=== PATIENT | male | born 1980 | race Caucasian/White ===

== ENCOUNTER → 2016-07-22 | Outpatient (CLI) | payer OTHER ==
[~2016-07-22] MED LIST: ASPI81TA28 PO; CEPH500C PO; DIHY1INJ2 IM; DLD/2 PO; DOCU100C PO; DXP/75 PO; FRRS300 PO; LPT10 PO; MEMA1TAB3 PO; METO25TA56 PO; ONDA4TAB9 PO; POLY335019 PO; PROM25TA16 PO; PRT/40 PO; SUMA1INJ5 IM; TRD10 PO; TRDI60 IM; WARF-246 PO; ZFRODT/8 PO; [UNRECOGNIZED DRUG - CODE]
--- NOTE | 2016-07-22 11:57 | DIAGNOSTIC IMAGING REPORT ---
CHEST 2 VIEWS ROUTINE CLINICAL HISTORY: J22 Acute lower respiratory infection COMPARISON STUDY: 04/21/2016 FINDINGS: There are postsurgical changes of midline sternotomy and valvular replacement. There is no focal pulmonary consolidation. There is no failure. There are no pleural effusions.[ IMPRESSION: No active disease in the chest. Electronically signed by: Vickey Yoo M.D. 07/22/2016 11:56 AM Dictated Date/Time: 07/22/2016 11:56 AM
== END | disposition home or self-care (01) ==
LOC: C.RADBC 11:47
PROVIDERS: ATTEND Internal Medicine
DX: J22 Unspecified acute lower respiratory infection (principal)

== ENCOUNTER → 2017-08-17 | Day surgery (SDC) | payer OTHER ==
--- NOTE | 2017-08-16 10:55 | PAT Medication Instructions ---
Service Date Aug 16, 2017. Current Home Medication List Dihydroergotamine Mesylate (D.h.e. 45), 1 ML INJ PRN Doxepin Hcl (Doxepin), 75-150 MG PO HS Hydromorphone HCl (Hydromorphone HCl), 2 MG PO Q4-6H PRN for Pain Ketamine Hcl (Bulk) (Ketamine Hcl), 1 SPRAY NA UD PRN for Migraine Metoprolol Succ (Toprol Xl) (Toprol-Xl ), 100 MG PO BID Multivitamin (Multivitamin), 1 TAB PO QAM Naratriptan Hcl (Amerge), 2.5 MG PO PRN Ondansetron (Ondansetron HCl), 8 MG PO Q6H PRN for Nausea Pantoprazole (Pantoprazole Sodium), 40 MG PO DAILY PRN for Acid Reflux Polyethylene Glycol 3350 (Miralax), 17 GM PO DAILY PRN for Constipation Promethazine HCl (Promethazine HCl), 25 MG PO Q6H PRN for Nausea Sumatriptan Succinate (Sumatriptan Succinate), 6 MG IM UD PRN for Migraine Medication Instructions For Your Scheduled Surgery - Hold the following medications the morning of surgery: Dihydroergotamine Mesylate (D.h.e. 45), 1 ML INJ PRN Ketamine Hcl (Bulk) (Ketamine Hcl), 1 SPRAY NA UD PRN for Migraine Multivitamin (Multivitamin), 1 TAB PO QAM Polyethylene Glycol 3350 (Miralax), 17 GM PO DAILY PRN for Constipation - Take the following medications the morning of surgery with a sip of water: Sumatriptan Succinate (Sumatriptan Succinate), 6 MG IM UD PRN for Migraine (if needed) Promethazine HCl (Promethazine HCl), 25 MG PO Q6H PRN for Nausea (if needed) Pantoprazole (Pantoprazole Sodium), 40 MG PO DAILY PRN for Acid Reflux (if needed) Ondansetron (Ondansetron HCl), 8 MG PO Q6H PRN for Nausea (if needed) Naratriptan Hcl (Amerge), 2.5 MG PO PRN (if needed) Metoprolol Succ (Toprol Xl) (Toprol-Xl ), 100 MG PO BID Hydromorphone HCl (Hydromorphone HCl), 2 MG PO Q4-6H PRN for Pain (okay to take up to 4 hours prior to surgery if needed) - Take the following medications as scheduled the night before surgery: Sumatriptan Succinate (Sumatriptan Succinate), 6 MG IM UD PRN for Migraine (if needed) Promethazine HCl (Promethazine HCl), 25 MG PO Q6H PRN for Nausea (if needed) Polyethylene Glycol 3350 (Miralax), 17 GM PO DAILY PRN for Constipation (if needed) Pantoprazole (Pantoprazole Sodium), 40 MG PO DAILY PRN for Acid Reflux (if needed) Ondansetron (Ondansetron HCl), 8 MG PO Q6H PRN for Nausea (if needed) Naratriptan Hcl (Amerge), 2.5 MG PO PRN (if needed) Metoprolol Succ (Toprol Xl) (Toprol-Xl ), 100 MG PO BID Ketamine Hcl (Bulk) (Ketamine Hcl), 1 SPRAY NA UD PRN for Migraine (if needed) Hydromorphone HCl (Hydromorphone HCl), 2 MG PO Q4-6H PRN for Pain (if needed) Doxepin Hcl (Doxepin), 75-150 MG PO HS Dihydroergotamine Mesylate (D.h.e. 45), 1 ML INJ PRN (if needed) If you have any questions please call us at [phone] or [phone] or [phone]
[2017-08-16 12:11] LABS: HEMATOCRIT 39.2 % (42-52); HEMOGLOBIN 12.3 g/dL (14.0-18.0); MEAN CELL VOLUME 80.2 fL (80-100); MEAN CORPUSCULAR HEMOGLOBIN 25.2 pg (25-34); MEAN CORPUSCULAR HGB CONC 31.4 g/dl (32-36); MEAN PLATELET VOLUME 10.5 fL (7.4-10.4); PLATELET COUNT 175 K/uL (130-400); RED CELL DISTRIBUTION WIDTH CV 17.6 % (11.5-14.5); RED CELL DISTRIBUTION WIDTH SD 52.1 fL (36.4-46.3)
[2017-08-16 12:19] LABS: BLOOD UREA NITROGEN 12 mg/dl (7-18); CALCIUM 8.9 mg/dl (8.5-10.1); CARBON DIOXIDE 27 mmol/L (21-32); CREATININE 1.08 mg/dl (0.60-1.40); GLUCOSE 98 mg/dl (70-99); SODIUM 138 mmol/L (136-145)
--- NOTE | 2017-08-16 13:09 | History and Physical: Surg Cnt ---
History & Physical Date Aug 16, 2017. Chief Complaint ruptured right eardrum History of Present Illness The patient is a 37 year old male with complaints of accidentally puncturing his right ear drum last week with Qtip, c/o persistent pain and bloody drainage and hearing loss, requested repair Past Medical/Surgical History Medical Problems: (1) Abdominal pain (2) Abscess of left upper extremity (3) Acid reflux (4) BPH (benign prostatic hyperplasia) (5) Chest pain (6) Endocarditis (7) Fever (8) Hypertension (9) Intractable migraine with status migrainosus (10) Migraine (11) Nausea vomiting and diarrhea (12) Neurofibromatosis (13) Positive blood culture (14) SIRS (systemic inflammatory response syndrome) (15) SVT (supraventricular tachycardia) Surgical Problems: (1) H/O mitral valve repair (2) H/O repair of right rotator cuff (3) History of tonsillectomy and adenoidectomy Additional History Hepatic Disease: No Endocrine Disorder: No Kidney Disease: No Hypertension: Yes Heart Disease: Yes Bleeding Tendencies: No Infectious Diseases: No Allergies Coded Allergies: Adhesives (Verified Allergy, Unknown, SKIN IRRITATION WITH BANDAIDS, ) Metoclopramide (Verified Adverse Reaction, Mild, anxiety, 08/16/17) Home Medications Scheduled Dihydroergotamine Mesylate (D.h.e. 45), 1 ML INJ PRN Doxepin Hcl (Doxepin), 75-150 MG PO HS Metoprolol Succ (Toprol Xl) (Toprol-Xl ), 100 MG PO BID Multivitamin (Multivitamin), 1 TAB PO QAM Naratriptan Hcl (Amerge), 2.5 MG PO PRN Scheduled PRN Hydromorphone HCl (Hydromorphone HCl), 2 MG PO Q4-6H PRN for Pain Ketamine Hcl (Bulk) (Ketamine Hcl), 1 SPRAY NA UD PRN for Migraine Ondansetron (Ondansetron HCl), 8 MG PO Q6H PRN for Nausea Pantoprazole (Pantoprazole Sodium), 40 MG PO DAILY PRN for Acid Reflux Polyethylene Glycol 3350 (Miralax), 17 GM PO DAILY PRN for Constipation Promethazine HCl (Promethazine HCl), 25 MG PO Q6H PRN for Nausea Sumatriptan Succinate (Sumatriptan Succinate), 6 MG IM UD PRN for Migraine Physical Examination Skin: warm/dry, no rash Eyes: normal inspection, EOMI, sclerae normal ENT: + pertinent finding (blood in right canal, > 50% perforation of right TM) Head: normocephalic Neck: supple Respiratory/Chest: lungs clear Cardiovascular: regular rate, rhythm Abdomen / GI: normal bowel sounds Back: normal inspection Extremities: normal inspection Neurologic/Psych: + pertinent finding (conductive hearing loss right ear) Diagnosis Acute traumatic perforation right ear Plan of Treatment tympanoplasty, right
[2017-08-16 14:37] VITALS: Ht 185.4 cm; Wt 118.5 kg
[~2017-08-17] VITALS: Ht 185.4 cm; Wt 118.5 kg
[~2017-08-17] MED LIST changes: -ASPI81TA28 PO; +ATROPINE SULFATE 0.1 MG/ML 5ML SYR IV PRN; +CEFAZOLIN 1000MG IV PUSH 7.5 ML IV SCH; -CEPH500C PO; +DEXAMETHASONE SOD INJ 4 MG/ML VIAL ONE; -DIHY1INJ2 IM; +DIHY1INJ4 INJ; -DOCU100C PO; +EpHEDrine SULFATE INJ 50 MG/ML AMP IV PRN; +EpINEphrine HCL INJ 1 MG/ML 1ML SYRINGE ONE; +FENTANYL CITRATE INJ 50 MCG/1 ML 2 ML VIAL IV PRN; +FENTANYL CITRATE INJ 50 MCG/1 ML 2 ML VIAL ONE; -FRRS300 PO; +GELATIN SPONGE 12-7MM ONE; +HYDROmorphone INJ 1 MG/ML SYR IV PRN; +LACTATED RINGER'S 1000ML 1,000 ML IV SCH; +LIDO 2%/EPINEPHRINE 1:100000 20 ML VIAL INFIL ONE; +LIDOCAINE HCL 2% 2 ML VIAL (20MG/ML) ONE; -LPT10 PO; -MEMA1TAB3 PO; +METO100T44 PO; -METO25TA56 PO; +MIDAZOLAM HCL 1 MG/ML 2ML VIAL ONE; +MULT-506 PO; +NARA2.5T2 PO; +NEOMYCIN/POLYMYX/HYDROCORT OT SUSP 10 ML BTL ONE; +NEOMYCIN/POLYMYXIN/BACITR/HC 15 GM TUBE ONE; +ONDANSETRON INJ 2 MG/ML 2 ML VIAL IV PRN; +ONDANSETRON INJ 2 MG/ML 2 ML VIAL ONE; +OXYCODONE/ACETAMINOPHEN 5-325 TAB PO PRN; +PANT40TA2 PO; +PATIENT'S HEIGHT AND/OR WEIGHT NEEDED SCH; +PROPOFOL IV EMULSION 10 MG/ML 20 ML VIAL IV ONE; -PRT/40 PO; +SODIUM CHLORIDE 0.9% 1000ML 1,000 ML IV SCH; -TRD10 PO; -TRDI60 IM; -WARF-246 PO; -ZFRODT/8 PO
--- NOTE | 2017-08-17 10:56 | History & Physical Bridge Note ---
H&P Re-Evaluation Bridge Note: I have examined the patient, reviewed the History & Physical and in the interval since the performance of the History & Physical I have noted the following changes of clinical significance: No changes noted
--- NOTE | 2017-08-17 12:31 | [facility] Post Operative Brief Note ---
Immediate Operative Summary Operative Date Aug 17, 2017. Pre-Operative Diagnosis Right Perforation Post-Operative Diagnosis same as pre op Procedure(s) Performed Right Tympanoplasty Surgeon Dr Gamboa Box Blank Machine Feeder Surgeon(s) none Estimated Blood Loss 5ml Findings Consistent with Post-Op Diagnosis Specimens none Drains None Anesthesia Type General Complication(s) none Disposition Accompanied Pt To Recovery: no Disposition: Recovery Room / PACU
--- NOTE | 2017-08-17 12:34 | Discharge Instructions-SurgCtr ---
Discharge Instructions Date of Service Aug 17, 2017. Visit Reason for Visit: Right Perforation Discharge Discharge Diagnosis / Problem: same Discharge Goals Goal(s): Therapeutic intervention Activity Recommendations Activity Limitations: per Instructions/Follow-up section Anesthesia . Post Anesthesia Instructions: If you have had General Anesthesia or IV Sedation: * Do not drive today. * Resume driving when surgeon permits. * Do not make important decisions or sign legal documents today. * Call surgeon for: 1. Temperature elevations greater than 101 degrees F. 2. Uncontrollable pain. 3. Excessive bleeding. 4. Persistent nausea and vomiting. 5. Medication intolerance (nausea, vomiting or rash). * For nausea and vomiting use only clear liquids such as: tea, soda, bouillon until nausea subsides, then gradually increase diet as tolerated. * If you have any concerns or questions, call your surgeon's office. If physician is unavailable and it is an emergency, call 911 or go to the nearest emergency room. . Instructions / Follow-Up Instructions / Follow-Up ACTIVITY RECOMMENDATIONS: No limitations OVER THE COUNTER MEDICATIONS: Continue any other previous medications unless otherwise indicated by your surgeon. * You may use Tylenol for mild pain as per bottle instructions. SPECIAL CARE INSTRUCTIONS: * Keep operative ear dry. * Change cotton balls 4 times per day. Leave packing in ear. * Sneeze with your mouth open. * Do not blow your nose. Sniff back instead. * Please call with any increasing pain, increasing drainage, active bleeding, redness and/or swelling, or any concerns. Dr. Gamboa's office number is . FOLLOW UP VISIT: If not already scheduled, please call to schedule follow-up appointment with Dr. Gamboa. Diet Recommendations Home Diet: no limitations Procedures Procedures Performed: Right Tympanoplasty Pending Studies Studies pending at discharge: no Medical Emergencies . Who to Call and When: Medical Emergencies: If at any time you feel your situation is an emergency, please call 911 immediately. . Non-Emergent Contact Non-Emergency issues call your: Primary Care Provider . . "Provider Documentation" section prepared by Robina Gamboa. . [place] Drug Monitoring Program Search Results: no issues identified
--- NOTE | 2017-08-17 12:47 | [facility] Operative Report ---
Operative Report Operative Date Aug 17, 2017. Pre-Operative Diagnosis Right Perforation Post-Operative Diagnosis same as pre op Procedure(s) Performed Right Tympanoplasty Surgeon Dr Gamboa Blueprint Engineer Surgeon(s) none Estimated Blood Loss 5ml Findings Traumatic perforation of the right tympanic membrane Specimens none Drains None Anesthesia Type General Complication(s) none Disposition no Recovery Room / PACU Indications 37-year-old male who poked Q-tips to his right eardrum last week but continued to have significant pain and discomfort and hearing loss and bloody drainage. He requested repair due to the persistent pain. Description of Procedure The patient was brought to the operating room and placed in the supine position. General anesthesia was induced using LMA. The right ear was prepped with Betadine paint and draped in the usual sterile manner. The canal was cleaned of old blood and cerumen delineating the perforation which was posterior inferiorly involving approximately 25% of the tympanic membrane with a inferior flap which was rotated laterally. The canal and right supra auricular area were injected with 2% Xylocaine with 1-100,000 strength epinephrine. The supra-auricular incision was made using the 15 blade carried down through the subcutaneous tissue harvesting a circular piece of subcutaneous fascia and fat to use as a graft which was then set into the fascia press and then compressed in I. The perforation was visualized the inferior flap was rotated laterally the middle ear space was filled with pieces of dry Gelfoam through the perforation. The graft was cut to size and the fascia and fat graft was placed in an underlay manner by tucking the graft through the perforation underneath all edges of the flap superiorly inferiorly as well as anteriorly and posteriorly. The tympanic membrane flap that was inferiorly was then placed on top of the graft. The graft was packed in place along with the flap using pieces of Gelfoam dipped in Cortisporin. The canal was then filled with Cortisporin ointment. The supra auricular incision was closed using interrupted Vicryl sutures and Dermabond. A cotton dressing was placed in the canal and the patient tolerated procedure well and was taken recovery area in satisfactory condition. I attest to the content of the Intraoperative Record and any orders documented therein. Any exceptions are noted below.
--- NOTE | 2017-08-17 12:56 | Anesthesia Progress Nt - [facility] ---
Anesthesia Post Op Note Date & Time Aug 17, 2017 at 12:54 Vital Signs Pain Intensity: 4 Vital Signs Past 12 Hours Date Time Temp Pulse Resp B/P (MAP) Pulse Ox O2 Delivery O2 Flow Rate FiO2 08/17/17 12:39 36.2 79 20 118/73 100 Diffusion Mask 5 08/17/17 09:44 36.7 79 18 125/84 (98) 98 Room Air Notes Mental Status: alert / awake / arousable, participated in evaluation Pt Amnestic to Procedure: Yes Nausea / Vomiting: adequately controlled Pain: adequately controlled Airway Patency, RR, SpO2: stable & adequate BP & HR: stable & adequate Hydration State: stable & adequate Anesthetic Complications: no major complications apparent
[2017-08-17 13:33] VITALS: TEMP 36.5
[2017-08-17 13:52] VITALS: BP 126/82; PULSE 73; O2SAT 97
== END | disposition home or self-care (01) ==
LOC: X.SURG 09:24
PROVIDERS: ATTEND Otolaryngology
DX: S09.21XA Traumatic rupture of right ear drum, initial encounter (principal); X58.XXXA Exposure to other specified factors, initial encounter; Z98.890 Other specified postprocedural states; Z90.89 Acquired absence of other organs; Z79.899 Other long term (current) drug therapy; Z86.73 Personal history of transient ischemic attack (TIA), and cerebral infarction without residual deficits; E66.9 Obesity, unspecified; Z68.34 Body mass index [BMI] 34.0-34.9, adult

== ENCOUNTER 2019-03-13 11:23 | Inpatient (IN) ==
[2019-03-13] MEDS ORDERED: KETOROLAC 30 MG/ML VIAL IV STA (12:05)
[2019-03-13] MEDS ORDERED: ONDANSETRON INJ 2 MG/ML 2 ML VIAL IV STA (12:05)
[2019-03-13] MEDS ORDERED: HYDROmorphone INJ 1 MG/ML SYRINGE IV STA ×3 (12:05→16:18)
[2019-03-13] MEDS ORDERED: SODIUM CHLORIDE 0.9% 1000ML 1,000 ML IV SCH (12:15)
[2019-03-13 12:16] LABS: Basophils # (auto) 0.01 K/uL (0-0.2); Basophils % (auto) 0.1 %; Eosinophils # (auto) 0.12 K/uL (0-0.5); Eosinophils % (auto) 1.6 %; Hematocrit (blood only) 45.3 % (42-52); Hemoglobin 15.6 g/dL (14.0-18.0); Immature Granulocytes # (auto) 0.02 K/uL (0.00-0.02); Immature Granulocytes % (auto) 0.3 %; Lymphocytes # (auto) 1.51 K/uL (1.2-3.4); Lymphocytes % (auto) 20.4 %; Mean Corpuscular Hemoglobin 29.4 pg (25-34); Mean Corpuscular Hgb Conc 34.4 g/dL (32-36); Mean Corpuscular Volume 85.3 fL (80-100); Mean Platelet Volume 11.2 fL (7.4-10.4); Monocytes # (auto) 0.55 K/uL (0.11-0.59); Monocytes % (auto) 7.4 %; Neutrophils # (auto) 5.18 K/uL (1.4-6.5); Neutrophils % (auto) 70.2 %; Platelet Count 192 K/uL (130-400); RDW Coefficient of Variation 14.4 % (11.5-14.5); Red Blood Count 5.31 M/uL (4.7-6.1); White Blood Count 7.39 K/uL (4.8-10.8)
--- NOTE | 2019-03-13 12:16 | Emergency Department Note ---
History of Present Illness General Chief complaint: Flank Pain Stated complaint: KIDNEY STONE - PAIN RT SIDE, BACK PAIN Time Seen by Provider: 03/13/19 11:57 History of Present Illness Maximum Pain Intensity: 10 This is a 39-year-old male presenting to the emergency department with continued right sided abdominal and flank pain. The patient was identified to have ureteral calculi approximately 36 hours ago at this facility on CT imaging. The patient does follow with urology, however he does not have an appointment until tomorrow. The patient has been taking his oral oxycodone, Zofran, and Omnicef, but states that his pain is worse today. The patient reports the pain is radiating into the right testicle. His urine is clearer than it was before. He may have had a low-grade fever. No recent nausea or vomiting. He rates his overall discomfort a 10/10. Home Medications Home Medications Medication Instructions Recorded Confirmed Type metoprolol succinate ER 100 mg 100 mg PO BID #60 tab 01/21/19 03/13/19 History tablet,extended release 24 hr ondansetron HCl 8 mg PO TID PRN 03/11/19 03/13/19 History cefdinir 300 mg PO Q12H 7 Days #14 cap 03/12/19 03/13/19 Rx ondansetron HCl [Zofran] 4 mg PO Q6H #10 tab 03/12/19 03/13/19 Rx oxycodone 5 mg PO Q6H PRN #14 tab 03/12/19 03/13/19 Rx tamsulosin [Flomax] 0.4 mg PO DAILY #14 cap 03/12/19 03/13/19 Rx Allergies Allergy/AdvReac Type Severity Reaction Status Date / Time adhesive Allergy Unknown SKIN Verified 03/13/19 14:12 IRRITATION WITH BANDAIDS metoclopramide AdvReac Mild anxiety Verified 03/13/19 14:12 Past Med/Surg History Medical History Migraine (Chronic) Hypertension (Chronic) Bilateral kidney stones (Acute) Surgical History H/O hand surgery H/O knee surgery H/O shoulder surgery History of mandibular surgery S/P tonsillectomy and adenoidectomy Family History Mother Hypertension Grandfather Pancreatic cancer Other Diabetes Social History Preferred Language: Syrian Communication Ability: Effective Legal Director Required: No Beliefs That Will Affect Care: None marital status: Current Living Situation: Spouse and Family Other Information That Helps Us Care for You: No Feels Safe at Home: Yes Safety Concerns: Feels Safe At This Time Smoking Status: Never smoker Do You Dip or Chew Tobacco: No ; Second Hand Exposure: No ; Tobacco Cessation Education Requested by Patient: No Hx Alcohol Use: Yes Alcohol type: beer Hx Substance Use: No Review of Systems A total of 10 systems reviewed and were otherwise negative Physical Exam Vital Signs Vital Signs - 24 hr 03/13/19 11:31 03/13/19 13:24 03/13/19 15:00 Temperature 36.6 C Temperature Source Oral Sepsis Recent Fever Within 48 Hours No Sepsis New/Unexplained Change in Mental Status No Sepsis Action Taken by Nursing No Action Required Pulse Rate 79 Pulse Rate [Right Finger] 78 Pulse Rhythm [Right Finger] Regular Pulse Strength [Right Finger] Normal Respiratory Rate 18 18 16 Respiratory Effort / Characteristics Non-Labored Spontaneous Non-Labored Spontaneous Non-Labored Spontaneous Respiratory Depth Normal Normal Normal Respiratory Pattern Regular Blood Pressure 145/91 H Blood Pressure [Left Arm] 139/83 133/87 Blood Pressure Mean 109 Blood Pressure Mean [Left Arm] 101 102 Blood Pressure Position [Left Arm] Lying Pulse Oximetry 96 98 96 Oxygen Delivery Method Room Air Room Air Room Air 03/13/19 16:14 03/13/19 16:20 03/13/19 18:00 Temperature Temperature Source Sepsis Recent Fever Within 48 Hours Sepsis New/Unexplained Change in Mental Status Sepsis Action Taken by Nursing Pulse Rate Pulse Rate [Right Finger] 80 78 Pulse Rhythm [Right Finger] Regular Pulse Strength [Right Finger] Normal Respiratory Rate 20 18 Respiratory Effort / Characteristics Non-Labored Spontaneous Respiratory Depth Normal Respiratory Pattern Regular Blood Pressure Blood Pressure [Left Arm] 109/70 137/89 135/81 Blood Pressure Mean Blood Pressure Mean [Left Arm] 83 105 99 Blood Pressure Position [Left Arm] Sitting Lying Pulse Oximetry 78 L 96 96 Oxygen Delivery Method Room Air Room Air VITALS: Vitals are noted on the nurse's note and reviewed by myself. Vital signs stable. GENERAL: Well-developed, well-nourished, white male who appears moderately uncomfortable on examination. He is overall cooperative. HEAD: Normocephalic atraumatic. HEART: Regular rate and rhythm without murmurs gallops or rubs. LUNGS: Clear to auscultation bilaterally without wheezes, rales or rhonchi. No retractions or accessory muscle use. ABDOMEN: Positive normal bowel sounds x 4. Soft, nontender, without masses or organomegaly. No guarding or rebound tenderness. No CVA tenderness. MUSCULOSKELETAL: No muscle atrophy, erythema, or edema noted. Full range of motion in all extremities. No tenderness to palpation. NEURO: Patient was alert and oriented to person place and time. CN II through XII grossly intact. SKIN: The skin was without rashes, erythema, edema, or bruising. Capillary refill less than 2 seconds. Course Administered Medications Discontinued Medications Hydromorphone HCl (Dilaudid) 1 mg IV NOW STA Stop: 03/13/19 12:06 Last Admin: 03/13/19 12:26 Dose: 1 mg Documented by: [id number] Hydromorphone HCl (Dilaudid) 1 mg IV NOW STA Stop: 03/13/19 13:26 Last Admin: 03/13/19 13:30 Dose: 1 mg Documented by: [id number] Hydromorphone HCl (Dilaudid) 1 mg IV NOW STA Stop: 03/13/19 16:19 Last Admin: 03/13/19 16:23 Dose: 1 mg Documented by: [id number] Hydromorphone HCl (Dilaudid) Confirm Administered Dose 1 mg .ROUTE .STK-MED ONE Stop: 03/13/19 20:03 Last Admin: 03/13/19 20:04 Dose: 1 mg Documented by: [id number] Sodium Chloride (Nss 1000ml) 1,000 mls @ 999 mls/hr IV .Q1H1M WALDEMAR Stop: 03/13/19 13:15 Last Infusion: 03/13/19 13:25 Dose: 0 mls/hr Documented by: [id number] Admin: 03/13/19 12:24 Dose: 999 mls/hr Documented by: [id number] Ketorolac Tromethamine (Toradol) 30 mg IV NOW STA Stop: 03/13/19 12:06 Last Admin: 03/13/19 12:25 Dose: 30 mg Documented by: [id number] Morphine Sulfate (Morphine Sulfate) Confirm Administered Dose 2 mg .ROUTE .STK- MED ONE Stop: 03/13/19 18:10 Last Admin: 03/13/19 18:13 Dose: 2 mg Documented by: [id number] Ondansetron HCl (Zofran) 4 mg IV NOW STA Stop: 03/13/19 12:06 Last Admin: 03/13/19 12:24 Dose: 4 mg Documented by: [id number] Ondansetron HCl (Zofran) Confirm Administered Dose 4 mg .ROUTE .STK-MED ONE Stop: 03/13/19 18:10 Last Admin: 03/13/19 18:12 Dose: 4 mg Documented by: [id number] Oxycodone HCl (Roxicodone Immediate Rel) Confirm Administered Dose 5 mg .ROUTE .STK-MED ONE Stop: 03/13/19 18:10 Last Admin: 03/13/19 18:12 Dose: 5 mg Documented by: [id number] Medical Decision Making Differential Diagnosis Differential diagnosis: Etiologies such as shingles, pyelonephritis/UTI, renal colic, appendicitis, diverticulitis, mesenteric ischemia, torsion, aortic pathology, infections, inflammatory bowel disease, bowel obstruction, PUD, biliary pathology, as well as others were entertained. Laboratory Data Result diagrams: 03/13/19 11:39 03/13/19 11:39 Lab Results 03/13/19 03/13/19 03/13/19 Range/Units 11:30 11:39 11:39 WBC 7.39 (4.8-10.8) K/uL RBC 5.31 (4.7-6.1) M/uL Hgb 15.6 (14.0-18.0) g/dL Hct 45.3 (42-52) % MCV 85.3 (80-100) fL MCH 29.4 (25-34) pg MCHC 34.4 (32-36) g/dL RDW Std Deviation 45.0 (36.4-46.3) fL RDW Coeff of Dax 14.4 (11.5-14.5) % Plt Count 192 (130-400) K/uL MPV 11.2 H (7.4-10.4) fL Immature Gran % (Auto) 0.3 % Neut % (Auto) 70.2 % Lymph % (Auto) 20.4 % [place] % (Auto) 7.4 % Eos % (Auto) 1.6 % Baso % (Auto) 0.1 % Immature Gran # (Auto) 0.02 (0.00-0.02) K/uL Neut # (Auto) 5.18 (1.4-6.5) K/uL Lymph # (Auto) 1.51 (1.2-3.4) K/uL [place] # (Auto) 0.55 (0.11-0.59) K/uL Eos # (Auto) 0.12 (0-0.5) K/uL Baso # (Auto) 0.01 (0-0.2) K/uL Sodium 139 (136-145) mmol/L Potassium 3.6 (3.5-5.1) mmol/L Chloride 105 (98-107) mmol/L Carbon Dioxide 30 (21-32) mmol/L Anion Gap 4.0 (3-11) BUN 16 (7-18) mg/dl Creatinine 1.06 (0.6-1.4) mg/dl Est Cr Clr Drug Dosing 133.8 ml/min Est GFR ( Amer) 103.4 Est GFR (Non-Af Amer) 89.2 BUN/Creatinine Ratio 14.8 (10-20) Glucose 96 (70-99) mg/dl Calcium 9.1 (8.5-10.1) mg/dl Total Bilirubin 0.4 (0.2-1) mg/dl AST 12 L (15-37) U/L ALT 26 (12-78) U/L Alkaline Phosphatase 79 (45-117) U/L Total Protein 6.6 (6.4-8.2) gm/dl Albumin 3.8 (3.4-5.0) gm/dl Globulin 2.8 (2.5-4.0) gm/dl Albumin/Globulin Ratio 1.4 (0.9-2) Urine Color Yellow Urine Appearance Clear (Clear) Urine pH 5.0 (4.5-7.5) Ur Specific [place] 1.027 (1.000-1.030) Urine Protein Negative (Negative) Urine Glucose (UA) Negative (Negative) Urine Ketones Negative (Negative) Urine Blood Trace H (Negative) Urine Nitrite Negative (Negative) Urine Bilirubin Negative (Negative) Urine Urobilinogen Negative (Negative) Ur Leukocyte Esterase Negative (Negative) Urine WBC (Auto) 1-5 (0-5) /hpf Urine RBC (Auto) 0-4 (0-4) /hpf U Hyaline Cast (Auto) 1-5 (0-5) /lpf U Epithel Cells (Auto) 5-10 H (0-5) /lpf Urine Bacteria (Auto) Negative (Negative) Imaging Data Radiologist's Impression: EXAMINATION: RENAL ULTRASOUND CLINICAL HISTORY: right ureteral stone RIGHT FLANK PAIN, HEMATURIA. COMPARISON STUDY: CT scan dated 03/11/2019 FINDINGS: The right kidney measures 11.6 cm. The left kidney measures 12.4 cm. There is mild right-sided hydronephrosis. There is no left-sided hydronephrosis. There are no renal masses. The bladder was poorly distended. The bladder appeared thick walled. Neither ureteral jet was visualized. IMPRESSION : Mild right-sided hydronephrosis KUB HISTORY: Follow up study in a patient with right ureteral calculus right ureteral stone COMPARISON: Renal ultrasound of same day, CT abdomen and pelvis 03/11/2019 FINDINGS: The bowel gas pattern is non-obstructive. There is no organomegaly. There is unchanged positioning of the 4 mm right ureteral calculus at the level of the L3 vertebral body. No renal calculi identified. No pneumoperitoneum or pneumatosis. No fracture. IMPRESSION: Unchanged positioning of the 4 mm right ureteral calculus at the level of L3. MDM Narrative Physical exam and history were performed. Nursing notes, EMR, and Medication List were personally reviewed. Patient appears to have continued right flank pain with previous ureteral calculi diagnosed less than 2 days ago. The patient does not appear toxic on examination. He is without fever, although may have had a low-grade fever at home. The patient is currently on antibiotics but is having difficulty keeping his pain controlled at home. IV access was established and labs were obtained. The patient was given IV Toradol, multiple rounds of IV Dilaudid, IV Zofran, and IV fluids. KUB and ultrasound were performed. The patient's blood work is as above and was reviewed. He does not have a significantly elevated white blood cell count, gross anemia, bandemia, or significant electrolyte imbalance. Urine does not appear grossly infected. The ureteral calculi was identified on KUB and appears in unchanged position per my and radiology review. Ultrasound was also reviewed and continues to show right hydronephrosis. I did discuss the case with the nurse practitioner for [facility] urology, as the patient has followed with their service in the past. At this time there does not appear to be a need to intervene with an acute surgical process. If the patient is unable to be dispositioned home they are more than happy to follow in the morning, and do asked to keep the patient n.p.o. after midnight. I did offer the patient multiple options of care. He does not feel well enough to go home after multiple IV pain medications. I did discuss the case with the on-call hospitalist, who agreed to evaluate the patient here in the department. Please see their dictation for further patient course, plan, and disposition. The chart was completed utilizing [employer]Show Speech Voice Recognition Software. Grammatical errors, random word insertions, pronoun errors, and incomplete sentences are an occasional consequence of this system due to software limitations, ambient noise, and hardware issues. Any formal questions or concerns about the content, text, or information contained within the body of this dictation should be directly addressed to the provider for clarification. . Impression & Plan Right ureteral calculus, Intractable pain, Hydronephrosis with renal and ureteral calculous obstruction Discharge Plan Visit Data Chief Complaint: Flank Pain Stated Complaint: KIDNEY STONE - PAIN RT SIDE, BACK PAIN ED Provider: Zane Cooper ED Midlevel Provider: Jhonny Thomas Discharge Problem: Right ureteral calculus, Intractable pain, Hydronephrosis with renal and ureteral calculous obstruction
[2019-03-13 12:22] LABS: Albumin Level 3.8 gm/dl (3.4-5.0); BUN Creatinine Ratio 14.8 (10-20); Calcium 9.1 mg/dl (8.5-10.1); Creatinine Clr Calc Pharmacy 133.8 ml/min; Est GFR (African American) 103.4; Est GFR (Non-African American) 89.2; Potassium 3.6 mmol/L (3.5-5.1)
[2019-03-13 12:25] LABS: Appearance Urine Clear (Clear); Bacteria Urine Automated Negative (Negative); Bilirubin Urine Negative (Negative); Blood Urine Trace (Negative); Color Urine Yellow; Glucose Urine UA Negative (Negative); Ketones Urine Negative (Negative); Leukocyte Esterase Urine Negative (Negative); Nitrite Urine Negative (Negative); Protein Urine Negative (Negative); RBC Urine Automated 0-4 /hpf (0-4); Specific Gravity Urine 1.027 (1.000-1.030); Urobilinogen Urine Negative (Negative)
[2019-03-13 12:25] LABS: Albumin Globulin Ratio 1.4 (0.9-2); Bilirubin,Total 0.4 mg/dl (0.2-1); Globulin 2.8 gm/dl (2.5-4.0); Total Protein 6.6 gm/dl (6.4-8.2)
--- NOTE | 2019-03-13 13:01 | Ultrasound Report ---
EXAMINATION: RENAL ULTRASOUND CLINICAL HISTORY: right ureteral stone RIGHT FLANK PAIN, HEMATURIA. COMPARISON STUDY: CT scan dated 03/11/2019 FINDINGS: The right kidney measures 11.6 cm. The left kidney measures 12.4 cm. There is mild right-s ided hydronephrosis. There is no left-sided hydronephrosis. There are no renal masses. The bladder was poorly distended. The bladder appeared thick walled. Neither ureteral jet was visuali zed. IMPRESSION : Mild right-sided hydronephrosis Electronically signed by: Vickey Yoo M.D. 03/13/2019 12:59 PM
--- NOTE | 2019-03-13 13:05 | XRay Report ---
KUB HISTORY: Follow up study in a patient with right ureteral calculus right ureteral stone COMPARISON: Renal ultrasound of same day, CT abdomen and pelvis 03/11/2019 FINDINGS: The bowel gas pattern is non-obstructive. There is no organomegaly. There is unchanged pos itioning of the 4 mm right ureteral calculus at the level of the L3 vertebral body. No renal calculi identified. No pneumoperitoneum or pneumatosis. No fracture. IMPRESSION: Unchanged positioning of the 4 mm right ureteral calculus at the level of L3. Electronically signed by: Edilson Salgado M.D. 03/13/2019 1:04 PM
[2019-03-13] MEDS ORDERED: OXYCODONE HCL IR 5 MG TAB (IMMEDIATE RELEASE) ONE (18:09)
[2019-03-13] MEDS ORDERED: ONDANSETRON INJ 2 MG/ML 2 ML VIAL ONE (18:09)
[2019-03-13] MEDS ORDERED: MoRPHine SULFATE 2 MG/ML CARP ONE (18:09)
--- NOTE | 2019-03-13 18:31 | History & Physical Report ---
Date of Service March 13, 2019 Assessment & Plan (1) Ureterolithiasis: Admit to inpatient on telemetry Vital signs every 4 hours Pain management with morphine 2 mg every 2 hours as needed for pain and Oxycodon immediate release every 4 hours for pain as needed. Continue Zofran 4 mg every 6 hours for nausea and vomiting as needed IV fluid hydration with normal saline at 100 cc/h Consulted nephrology for possible surgical procedure in a.m. Monitor labs CBC CMP and replenish electrolytes as necessary N.p.o. after midnight DVT prophylaxis patient is ambulatory at low risk for DVT Full code Present on Admission?: Yes (2) Renal colic on right side: As the above pain management Present on Admission?: Yes (3) History of endocarditis: Patient had in the past endocarditis. He was already placed on cefdinir 300 mg p.o. every 12 12 hours for 7 days. Patient does not have any urinary tract infection at this time that would mandate extensive antibiotic use. Present on Admission?: Yes (4) Hypertension: Stable continue metoprolol succinate 100 mg tablet every 24 hours. EKG pending. Present on Admission?: Yes History of Present Illness Chief Complaint: Nephrolithiasis and renal colic Primary Care Provider: Randy Kwan MD Patient is a 39 years old male with past medical history of endocarditis and migraine who presents to the emergency department with continued right-sided abdominal and flank pain. Patient was found to have ureteral calculi approximately 36 hours ago at [facility] on the CT scan imaging. Patient have seen urologist in the past and his appointment is scheduled for tomorrow. For the past 36 hours patient is taking oral oxycodone, Zofran, and Omnicef, but states that that minimally relieved his pain. Patient reports that pain is red radiating to his right testicle and t is shooting. Patient said that he was drinking lots of water and his urine is clear looking and better than before. Patient reports that he had a low-grade fever. He denies chest pain shortness of breath frequency urgency nausea or vomiting. Patient reports that his pain is 10 of 10. Labs are reviewed: WBC is 7.39, hemoglobin 15.6, hematocrit 45.3, platelets 192, sodium 139, potassium 3.6, chloride 105, anion gap 4, BUN 16, c reatinine 1.06, GFR 89.2, glucose 96, AST 12, ALT 26, urine positive for epithelial cells and trace urine blood otherwise negative. KUB shows that there is unchanged position of 4 mm right ureteral calculus at the level of L3. Sound shows mild right-sided hydronephrosis. Abdomen CT pelvis from the day before shows no evidence of bowel obstruction. No evidence of free air. 4 mm proximal right ureteral calculus at the L3 level with secondary obstructive changes. Decision was made to admit patient to PCU telemetry for nephrolithiasis pain relief and evaluation for possible surgery in the morning. Allergies Allergy/AdvReac Type Severity Reaction Status Date / Time adhesive Allergy Unknown SKIN Verified 03/13/19 14:12 IRRITATION WITH BANDAIDS metoclopramide AdvReac Mild anxiety Verified 03/13/19 14:12 Home Medications Home Medications Medication Instructions Recorded Confirmed Type metoprolol succinate ER 100 mg 100 mg PO BID #60 tab 01/21/19 03/13/19 History tablet,extended release 24 hr ondansetron HCl 8 mg PO TID PRN 03/11/19 03/13/19 History cefdinir 300 mg PO Q12H 7 Days #14 cap 03/12/19 03/13/19 Rx ondansetron HCl [Zofran] 4 mg PO Q6H #10 tab 03/12/19 03/13/19 Rx oxycodone 5 mg PO Q6H PRN #14 tab 03/12/19 03/13/19 Rx tamsulosin [Flomax] 0.4 mg PO DAILY #14 cap 03/12/19 03/13/19 Rx Past Med/Surg History Medical History Migraine (Chronic) Hypertension (Chronic) Bilateral kidney stones (Acute) Surgical History H/O hand surgery H/O knee surgery H/O shoulder surgery History of mandibular surgery S/P tonsillectomy and adenoidectomy Family History Mother Hypertension Grandfather Pancreatic cancer Other Diabetes Social History Preferred Language: Omani Communication Ability: Effective Oracle Technical Developer Required: No Beliefs That Will Affect Care: None marital status: Current Living Situation: Spouse and Family Other Information That Helps Us Care for You: No Feels Safe at Home: Yes Safety Concerns: Feels Safe At This Time Smoking Status: Never smoker Do You Dip or Chew Tobacco: No ; Second Hand Exposure: No ; Tobacco Cessation Education Requested by Patient: No Hx Alcohol Use: Yes Alcohol type: beer Hx Substance Use: No Review of Systems Review of Systems: All systems reviewed & are unremarkable except as noted in HPI & below Physical Exam Constitutional: WD/WN, vitals as above well developed Eyes: PERRL, conjunctivae normal, anicteric sclerae ENMT: external ear and nose normal, oropharynx normal Neck: trachea midline, no thyromegaly Respiratory: normal respiratory effort, lungs clear to auscultation Cardiovascular: RRR, no murmur, no edema Gastrointestinal (Abdomen): normal bowel sounds, soft, nontender, no hepatosplenomegaly Musculoskeletal: no cyanosis or clubbing, extremities motor strength 5/5 Skin: no rashes, warm and dry Neurologic: patellar DTR's 2+ bilat, sensation intact Psychiatric: A+Ox3, euthymic affect Lymphatic: no cervical or axillary lymphadenopathy Results & Data Vital Signs (Past 12 Hours) Vital Signs Temp Pulse Pulse Resp BP BP Pulse Ox 03/13/19 16:20 80 20 137/89 96 03/13/19 16:14 109/70 78 L 03/13/19 15:00 16 133/87 96 03/13/19 13:24 78 18 139/83 98 03/13/19 11:31 36.6 C 79 18 145/91 H 96 Code Status & VTE Plan Code Status Full code VTE Prophylaxis Plan VTE Prophylaxis will be ordered: No PG Care Time/CCT Total # of Minutes Spent Total Time Spent with Patient: Total time spent is greater than 50% in coordination of care (as documented) at patient's floor/unit and/or counseling patient:
[2019-03-13] MEDS ORDERED: HYDROmorphone INJ 1 MG/ML SYRINGE ONE (20:02)
[2019-03-13] MEDS ORDERED: POLYETHYLENE (MIRALAX) 17 GM PACK PO PRN (20:29)
[2019-03-13] MEDS ORDERED: MAGNESIUM HYDROXIDE SUSP 30 ML UDC PO PRN (20:29)
[2019-03-13] MEDS ORDERED: HYDROmorphone INJ 1 MG/ML SYRINGE IV PRN (20:29)
[2019-03-13] MEDS ORDERED: ALUMINUM/MAGNESIUM SUSP 30 ML UDC PO PRN (20:29)
[2019-03-13] MEDS ORDERED: ONDANSETRON INJ 2 MG/ML 2 ML VIAL IV PRN (20:29)
[2019-03-13] MEDS: KETOROLAC 30 MG/ML VIAL IV SCH (21:07)
[2019-03-13] MEDS: SODIUM CHLORIDE 0.9% 1000ML 1,000 ML IV SCH (21:11)
[2019-03-13] MEDS: TAMSULOSIN HCL 0.4 MG CAP PO SCH (21:11)
[2019-03-13] MEDS: METOPROLOL SUCC 50MG EXT REL TAB PO SCH (21:12)
[2019-03-13] MEDS: CEFDINIR 300 MG CAP PO SCH (22:07)
[2019-03-13] MEDS: HYDROmorphone INJ 1 MG/ML SYRINGE IV PRN (22:11)
[2019-03-13] MEDS: MoRPHine SULFATE 2 MG/ML CARP IV PRN (23:42)
[2019-03-14] MEDS: HYDROmorphone INJ 1 MG/ML SYRINGE IV PRN ×9 (00:23→22:51)
[2019-03-14] MEDS: MoRPHine SULFATE 2 MG/ML CARP IV PRN ×2 (01:42→06:31)
[2019-03-14] MEDS: KETOROLAC 30 MG/ML VIAL IV SCH ×3 (02:26→17:54)
[2019-03-14] MEDS: ONDANSETRON INJ 2 MG/ML 2 ML VIAL IV PRN (04:40)
[2019-03-14 06:02] LABS: Basophils # (auto) 0.03 K/uL (0-0.2); Basophils % (auto) 0.5 %; Eosinophils # (auto) 0.19 K/uL (0-0.5); Eosinophils % (auto) 3.2 %; Hematocrit (blood only) 43.1 % (42-52); Hemoglobin 14.6 g/dL (14.0-18.0); Immature Granulocytes # (auto) 0.01 K/uL (0.00-0.02); Immature Granulocytes % (auto) 0.2 %; Lymphocytes # (auto) 1.51 K/uL (1.2-3.4); Lymphocytes % (auto) 25.2 %; Mean Corpuscular Hemoglobin 29.1 pg (25-34); Mean Corpuscular Hgb Conc 33.9 g/dL (32-36); Mean Platelet Volume 10.8 fL (7.4-10.4); Monocytes # (auto) 0.55 K/uL (0.11-0.59); Monocytes % (auto) 9.2 %; Neutrophils % (auto) 61.7 %; Platelet Count 170 K/uL (130-400); RDW Coefficient of Variation 14.6 % (11.5-14.5); RDW Standard Deviation 46.2 fL (36.4-46.3); Red Blood Count 5.01 M/uL (4.7-6.1); White Blood Count 5.99 K/uL (4.8-10.8)
[2019-03-14] MEDS: SODIUM CHLORIDE 0.9% 1000ML 1,000 ML IV SCH ×2 (06:29→17:48)
[2019-03-14 06:50] LABS: Albumin Level 3.4 gm/dl (3.4-5.0); Calcium 8.1 mg/dl (8.5-10.1); Creatinine Clr Calc Pharmacy 156.5 ml/min; Est GFR (African American) 122.7; Est GFR (Non-African American) 105.9; Potassium 3.7 mmol/L (3.5-5.1)
[2019-03-14 06:54] LABS: Albumin Globulin Ratio 1.3 (0.9-2); Bilirubin,Total 0.5 mg/dl (0.2-1); Globulin 2.6 gm/dl (2.5-4.0)
[2019-03-14 06:59] LABS: Estimated Average Glucose 111 mg/dl; Hemoglobin A1C 5.5 % (4.5-5.6)
[2019-03-14] MEDS ORDERED: LORazepam 1 MG TAB SL STA (08:12)
[2019-03-14] MEDS ORDERED: HYDROmorphone INJ 0.5 MG/0.5 ML SYR IV STA ×2 (08:12→11:31)
--- NOTE | 2019-03-14 08:13 | Urology Consultation ---
Date of Consultation March 14, 2019 Assessment & Plan (1) Right ureteral calculus: 39yo M with 4mm right prox ureteral stone, mild hydronephrosis Continue NPO status Strain all urine Will give one time dose of dilaudid 0.5mg and ativan SL for anxiety. RN made aware. Findings reviewed with Dr. Hopper. Given his uncontrolled pain the context of an obstructing right ureteral stone, will proceed with OR for cysto, right retrograde pyelogram and Right stent placement, possible right ureteroscopy, laser litho, stone basketing, possible ureteral dilation depending on findings. Risks and benefits to be reviewed with patient by Dr. Hopper OR notified. Preoperative CXR and EKG ordered. Will cover with IV ciprofloxacin preoperatively. History of Present Illness Reason for Consultation: stone Requesting Physician: Dr. Dobson Attending Physician: Ellen Dobson MD History of Present Illness 39yo M with hx of endocarditis and stone admitted through [facility] ED x2 for uncontrolled right flank pain secondary to 4mm obstructing prox right ureteral stone, mild hydronephrosis. Pt has hx of stones, previous bilateral obstruction requiring bilateral stenting. Pt states he has tolerated stents well in the past. He is visibly uncomfortable upon exam, anxious. He states he was weaned off dilaudid 6 months ago via pain management clinic and he metabolizes morphine differently than others. He has been NPO awaiting our recommendations. Prelim UC&S is negative for infection. No leukocytosis, Cr WNL VS stable Allergies Allergy/AdvReac Type Severity Reaction Status Date / Time adhesive Allergy Unknown SKIN Verified 03/13/19 14:12 IRRITATION WITH BANDAIDS metoclopramide AdvReac Mild anxiety Verified 03/13/19 14:12 Home Medications Home Medications Medication Instructions Recorded Confirmed Type metoprolol succinate ER 100 mg 100 mg PO BID #60 tab 01/21/19 03/13/19 History tablet,extended release 24 hr ondansetron HCl 8 mg PO TID PRN 03/11/19 03/13/19 History cefdinir 300 mg PO Q12H 7 Days #14 cap 03/12/19 03/13/19 Rx ondansetron HCl [Zofran] 4 mg PO Q6H #10 tab 03/12/19 03/13/19 Rx oxycodone 5 mg PO Q6H PRN #14 tab 03/12/19 03/13/19 Rx tamsulosin [Flomax] 0.4 mg PO DAILY #14 cap 03/12/19 03/13/19 Rx Patient History Medical History Migraine (Chronic) Hypertension (Chronic) Bilateral kidney stones (Acute) Surgical History H/O hand surgery H/O knee surgery H/O shoulder surgery History of mandibular surgery S/P tonsillectomy and adenoidectomy Family History Mother Hypertension Grandfather Pancreatic cancer Other Diabetes Social History Preferred Language: Kinyarwanda Communication Ability: Effective Kiln Puller Required: No Beliefs That Will Affect Care: None marital status: Current Living Situation: Spouse and Family Other Information That Helps Us Care for You: No Feels Safe at Home: Yes Safety Concerns: Feels Safe At This Time Smoking Status: Never smoker Do You Dip or Chew Tobacco: No ; Second Hand Exposure: No ; Tobacco Cessation Education Requested by Patient: No Hx Alcohol Use: Yes Alcohol type: beer Hx Substance Use: No Review of Systems Review of Systems: All systems reviewed & are unremarkable except as noted in HPI & below Physical Exam Constitutional: no acute distress and not ill appearing Eyes: no nystagmus ENMT: Ears: no hearing impairment Neck: trachea midline Respiratory: no respiratory distress and no cough Cardiovascular: Vessels: no JVD Chest (Breasts): Chest: normal inspection of chest Gastrointestinal (Abdomen): Inspection/Auscultation: abdomen not distended and no abdominal edema Percussion/Palpation: abdomen soft; abdomen nontender Musculoskeletal: Head/Neck/Chest: normocephalic and head atraumatic Skin: no rashes, warm and dry Neurologic: awake; not confused and not obtunded Psychiatric: Orientation: alert and oriented x 3 Eye Contact: good eye contact Affect: no depressed affect Genitourinary: no CVA tenderness right CVA tenderness Lymphatic: no lymphadenopathy and no lymphedema Results & Data Vital Signs (Past 12 Hours) Vital Signs Temp Pulse Pulse Resp BP Pulse Ox 10/17/19 07:29 36.5 C 68 20 146/94 H 99 03/13/19 22:54 36.7 C 75 16 136/83 95 03/13/19 20:30 36.7 C 81 86 20 155/96 H 90 PG Care Time/CCT Total # of Minutes Spent Total Time Spent with Patient: Total time spent is greater than 50% in coordination of care (as documented) at patient's floor/unit and/or counseling patient:
[2019-03-14] MEDS: TAMSULOSIN HCL 0.4 MG CAP PO SCH (08:29)
[2019-03-14] MEDS: METOPROLOL SUCC 50MG EXT REL TAB PO SCH ×2 (08:29→20:06)
[2019-03-14] MEDS: CEFDINIR 300 MG CAP PO SCH ×2 (08:29→20:07)
[2019-03-14] MEDS ORDERED: CIPROFLOXACIN 400 MG/200 ML BAG IV SCH (09:00)
--- NOTE | 2019-03-14 09:46 | XRay Report ---
XR chest 2V PA/lateral CLINICAL HISTORY: 39 years-old Male presenting with preop, hx endocarditis. TECHNIQUE: PA and lateral views of the chest were obtained. COMPARISON: 04/21/2016. FINDINGS: Median sternotomy wires with mitral annuloplasty. Cardiac silhouette top normal in size. Lungs and pl eural spaces clear. Osseous structures normal. Upper abdomen normal. IMPRESSION: 1. No acute cardiopulmonary disease. Electronically signed by: Randy Palafox M.D. 03/14/2019 9:45 AM
--- NOTE | 2019-03-14 10:49 | Hospitalist Progress Note ---
Date of Service March 14, 2019 Assessment & Plan (1) Ureterolithiasis: Continue MedSurg Vital signs every 4 hours Pain management switched from morphine 2 mg every 2 hours as needed for pain to Dilaudid 1.5 mg every 2 hours as needed for pain relief and Oxycodon immediate release every 4 hours for pain as needed. Continue Zofran 4 mg every 6 hours for nausea and vomiting as needed IV fluid hydration with normal saline at 100 cc/h Appreciate urology recommendations Monitor labs CBC CMP and replenish electrolytes as necessary Continue Omnicef and Cipro per urology recommendations and prophylactically. N.p.o. after midnight DVT prophylaxis patient is ambulatory at low risk for DVT Full code (2) Renal colic on right side: As the above pain management (3) History of endocarditis: Patient had in the past endocarditis. He was already placed on cefdinir 300 mg p.o. every 12 12 hours for 7 days. Patient does not have any urinary tract infection at this time that would mandate extensive antibiotic use. (4) Hypertension: Stable continue metoprolol succinate 100 mg tablet every 24 hours. EKG pending. Subjective Patient seen and examined at bedside. He is n.p.o. for the procedure in the afternoon for removal of the right ureteral stone. Patient was on Dilaudid in the past and his preference he is to continue Dilaudid 1.5 mg every 2 hours for pain management instead of morphine which was placed before. Patient denies fever chills, chest pain, shortness of breath, urgency, frequency, hematuria, dysuria. Review of Systems Review of Systems: All systems reviewed & are unremarkable except as noted in HPI & below Physical Exam Constitutional: WD/WN, vitals as above well developed Eyes: PERRL, conjunctivae normal, anicteric sclerae ENMT: external ear and nose normal, oropharynx normal Neck: trachea midline, no thyromegaly Respiratory: normal respiratory effort, lungs clear to auscultation Cardiovascular: RRR, no murmur, no edema Gastrointestinal (Abdomen): normal bowel sounds, soft, nontender, no hepatosplenomegaly Musculoskeletal: no cyanosis or clubbing, extremities motor strength 5/5 Skin: no rashes, warm and dry Neurologic: patellar DTR's 2+ bilat, sensation intact Psychiatric: A+Ox3, euthymic affect Lymphatic: no cervical or axillary lymphadenopathy Results & Data Vital Signs (Past 12 Hours) Vital Signs Temp Pulse Resp BP Pulse Ox 03/14/19 07:29 36.5 C 68 20 146/94 H 99 03/13/19 22:54 36.7 C 75 16 136/83 95 PG Care Time/CCT Total # of Minutes Spent Total Time Spent with Patient: Total time spent is greater than 50% in coordination of care (as documented) at patient's floor/unit and/or counseling patient:
[2019-03-14] MEDS ORDERED: HYDROmorphone INJ 0.5 MG/0.5 ML SYR ONE (11:36)
[2019-03-14] MEDS ORDERED: INFLUENZA ADMINISTRATION CHARGE ONE (14:30)
[2019-03-14] MEDS ORDERED: INFLUENZA VIRUS QUAD VACCINE 0.5 ML SYR IM ONE (14:30)
[2019-03-14] MEDS ORDERED: PROPOFOL IV EMULSION 10 MG/ML 20 ML VIAL IV ONE (14:36)
[2019-03-14] MEDS ORDERED: LIDOCAINE HCL 2% 2 ML VIAL/AMP(20MG/ML) INFIL ONE (14:36)
[2019-03-14] MEDS ORDERED: DEXAMETHASONE SOD INJ 4 MG/ML VIAL ONE (14:36)
[2019-03-14] MEDS ORDERED: ONDANSETRON INJ 2 MG/ML 2 ML VIAL ONE (14:36)
[2019-03-14] MEDS ORDERED: MIDAZOLAM HCL 1 MG/ML 2ML VIAL ONE (14:36)
[2019-03-14] MEDS ORDERED: fentaNYL citrate 100 MCG/2 ML VIAL ONE (14:37)
[2019-03-14] MEDS ORDERED: ATROPINE SULFATE 0.1 MG/ML 10ML SYR IV PRN (14:52)
[2019-03-14] MEDS ORDERED: PHENYLEPHRINE 100MCG/ML 5ML SYR IV PRN (14:52)
[2019-03-14] MEDS ORDERED: HYDROmorphone INJ 1 MG/ML SYRINGE IV PRN (14:52)
[2019-03-14] MEDS ORDERED: LABETALOL HCL IV 5 MG/ML 20ML IV PRN (14:52)
[2019-03-14] MEDS ORDERED: ePHEDrine sulfate 50 MG/ML AMP IV PRN (14:52)
[2019-03-14] MEDS ORDERED: ONDANSETRON INJ 2 MG/ML 2 ML VIAL IV PRN (14:52)
[2019-03-14] MEDS ORDERED: MEPERIDINE HCL 25 MG/ML CARP IV PRN (14:52)
[2019-03-14] MEDS ORDERED: fentaNYL citrate 100 MCG/2 ML VIAL IV PRN (14:52)
--- NOTE | 2019-03-14 14:53 | Anesthesiology Consultation ---
Date of Service March 14, 2019 Assessment & Plan (1) Encounter for pre-operative examination: Chart Review Chart Review: Acceptable Risk for Surgery and Patient NOT seen in Pre Admission Testing Consults Requested none History Surgery Operation Date: 03/14/19 08:50 Proposed Procedures p Cystoscopy, Right Retrograde Pyelogram, Right Stent Placement, Possible Ureteroscopy, Laser Lithotripsy Stone Basket, Possible Dilation - Roberto Hopper MD Height/Weight Height: 6 ft 1 in Weight: 131.7 kg Allergies Allergy/AdvReac Type Severity Reaction Status Date / Time adhesive Allergy Unknown SKIN Verified 03/13/19 14:12 IRRITATION WITH BANDAIDS metoclopramide AdvReac Mild anxiety Verified 03/13/19 14:12 Medications Home Medications Medication Instructions Recorded Confirmed Last Taken metoprolol succinate ER 100 mg 100 mg PO BID #60 tab 01/21/19 03/13/19 03/13/19 04:00 tablet,extended release 24 hr ondansetron HCl 8 mg PO TID PRN 03/11/19 03/13/19 03/12/19 22:00 cefdinir 300 mg PO Q12H 7 Days #14 cap 03/12/19 03/13/19 03/12/19 22:00 ondansetron HCl [Zofran] 4 mg PO Q6H #10 tab 03/12/19 03/13/19 Unknown oxycodone 5 mg PO Q6H PRN #14 tab 03/12/19 03/13/19 03/12/19 22:00 tamsulosin [Flomax] 0.4 mg PO DAILY #14 cap 03/12/19 03/13/19 03/13/19 04:00 Active Medications Generic Name Dose Route Start Last Admin Trade Name Freq PRN Reason Stop Dose Admin Cefdinir 300 mg 03/13/19 21:00 03/14/19 08:29 Omnicef Cap PO 04/12/19 20:59 300 mg Q12H WALDEMAR Administration Hydromorphone HCl 1 mg 03/13/19 20:57 03/14/19 11:22 Dilaudid IV 03/27/19 20:28 1 mg Q2H PRN Administration Pain Hydromorphone HCl 1.5 mg 03/14/19 11:32 03/14/19 13:34 Dilaudid IV 03/28/19 11:31 1.5 mg Q2H PRN Administration Pain Sodium Chloride 1,000 mls @ 100 mls/hr 03/13/19 20:45 03/14/19 06:29 Nss 1000ml IV 04/12/19 20:44 100 mls/hr .Q10H WALDEMAR Administration Ketorolac Tromethamine 30 mg 03/13/19 21:00 03/14/19 09:14 Toradol IV 03/14/19 20:59 30 mg Q6H WALDEMAR Administration Metoprolol Succinate 100 mg 03/13/19 21:00 03/14/19 08:29 Toprol Xl PO 04/12/19 20:59 100 mg BID WALDEMAR Administration Ondansetron HCl 4 mg 03/13/19 20:29 03/14/19 04:40 Zofran IV 04/12/19 20:28 4 mg Q6H PRN Administration Nausea Tamsulosin HCl 0.4 mg 03/13/19 20:29 03/14/19 08:29 Flomax PO 04/12/19 20:28 0.4 mg DAILY WALDEMAR Administration NPO Date Last Intake of Fluids: 03/13/19 Time Last Intake of Fluids: 23:59 Date Last Intake of Solids: 03/13/19 Time Last Intake of Solids: 23:59 Past Medical History Medical History Migraine (Chronic) Hypertension (Chronic) Bilateral kidney stones (Acute) Past Family History Family History Mother Hypertension Grandfather Pancreatic cancer Other Diabetes Past Surgical History Surgical History H/O hand surgery H/O knee surgery H/O shoulder surgery History of mandibular surgery S/P tonsillectomy and adenoidectomy Social History Smoking Status: Never smoker Do You Dip or Chew Tobacco: No Hx Alcohol Use: Yes Alcohol type: beer alcohol intake frequency: holidays/special occasions only Hx Substance Use: No substance use type: does not use Physical Exam Vital Signs Last Vital Signs Temp 36.5 C 03/14/19 07:29 Pulse 68 03/14/19 07:29 Resp 20 03/14/19 07:29 BP 146/94 H 03/14/19 07:29 Pulse Ox 99 03/14/19 07:29 Testing Laboratory Results 03/14/19 05:34 03/14/19 05:34 Hemoglobin A1c 5.5 % (4.5-5.6) 03/14/19 05:34 Urine Color Yellow 03/13/19 11:30 Urine Appearance Clear (Clear) 03/13/19 11:30 Urine pH 5.0 (4.5-7.5) 03/13/19 11:30 Ur Specific [place] 1.027 (1.000-1.030) 03/13/19 11:30 Urine Protein Negative (Negative) 03/13/19 11:30 Urine Glucose (UA) Negative (Negative) 03/13/19 11:30 Urine Ketones Negative (Negative) 03/13/19 11:30 Urine Nitrite Negative (Negative) 03/13/19 11:30 Ur Leukocyte Esterase Negative (Negative) 03/13/19 11:30 Urine WBC (Auto) 1-5 /hpf (0-5) 03/13/19 11:30 Urine RBC (Auto) 0-4 /hpf (0-4) 03/13/19 11:30 U Hyaline Cast (Auto) 1-5 /lpf (0-5) 03/13/19 11:30 U Epithel Cells (Auto) 5-10 /lpf (0-5) H 03/13/19 11:30 Urine Bacteria (Auto) Negative (Negative) 03/13/19 11:30 Electrocardiogram Date: 03/13/19 SR with 1st degree AV block rate 65
--- NOTE | 2019-03-14 15:55 | Operative Report ---
PG Post Operative Report Pre & Post Diagnosis Operation Date: 03/14/19 08:50 Pre-Op Diagnosis: Right ureteral stone, intractable colic Post-Op Diagnosis: Right ureteral stone, intractable colic Specimen: Right ureteral stone for chemical analysis. Drains left in place: 6 Qatari, multilength right ureteral stent. Estimate blood loss: Minimal. Complications: None. Findings: Stone in the distal ureter fragmented and removed entirely, no ureteral injury, no residual ureteral stones to the level of the proximal ureter I identified the patient and participated in the time-out.: Yes Procedure Operation Date: 03/14/19 08:50 Actual Procedures p Cystoscopy, Right Retrograde Pyelogram, Right Semi Rigid Ureteroscopy, Right Stent Placement, Basket Stone Extraction, Laser Lithotripsy(Right) - Roberto Hopper MD Brief history: Patient is a 39-year-old male with a right 3 to 4 mm ureteral stone and intractable colic requiring several ER visits and ongoing admission. After discussion of risks and benefits of various forms of management he is decided upon acute endoscopic management to improve his symptoms. Please see H&P, urology consultation and progress notes for further disease. Intravenous ciprofloxacin is provided for antibiotic coverage. Procedure: Patient was properly identified and brought into the operative suite after identification of appropriate consent in the chart. General anesthesia with laryngeal mask was initiated and patient was prepped and draped in a standard fashion for this procedure. A timeout procedure was followed. 22 Qatari rigid cystoscope was introduced into the bladder demonstrating a normal urethra and a nonobstructive prostate gland. Mild injection of the bladder was appreciated with no intravesical lesions, papillary masses, mucosal changes or tumors. Ureteral orifices were appreciated in the normal anatomic location bilaterally and noted to be effluxing clear yellow urine. Attention was turned to the right-sided ureteral orifice which was cannulated using an open-ended catheter. Gentle retrograde pyelography was performed demonstrating fullness of the ureter down to the level of the bladder. Renal pelvis was opacified demonstrating mild proximal hydronephrosis. Sensor tip wire was advanced the level of the right kidney and kept until the end of the case as a safety wire. Semirigid ureteroscope was introduced into the right ureter and stones consistent with the patient's imaging findings were encountered in the right distal ureter. Attempts at basketing met with resistance at the level of the ureteral orifice so a 270 m laser fiber was used to fragment the stone into smaller pieces. These were then able to be removed without difficulties. They were sent for chemical analysis. Ureteroscope was reintroduced into the ureter and advanced up to the level of the right proximal ureter demonstrating no residual stones, injuries to the ureter, strictures, tumors or other abnormalities. Complete exit ureteroscopy was performed demonstrating the same. Cystoscope was then backloaded over the safety wire and a 6 Qatari multilength ureteral stent was advanced with a full coil being present both at the level of the right renal pelvis and within the bladder. Hydronephrotic drip was noted. Bladder was drained and cystoscope was removed. Anesthesia was reversed and patient was transferred to the recovery room in stable condition. Follow-up CARE: She will be readmitted to the floor for further management per the primary service. Patient should be stable for discharge home from a urologic perspective. Will arrange for outpatient cystoscopy and stent removal in 1 to 2 weeks time with a KUB prior. Would consider coverage with an antibiotic for 1 to 2 days for postoperative prophylaxis. Surgeon Roberto Hopper MD Supervisor Paste Mixing None Estimated Blood Loss 0 Findings Consistent with Post-Op Diagnosis Specimens Right ureteral stone for chemical analysis Description of Procedure As noted above I attest to the content of the Intraoperative Record and any orders documented therein. Any exceptions are noted below.
--- NOTE | 2019-03-14 16:02 | Fluoroscopy Report ---
FL retrograde includes kub CLINICAL HISTORY: CYSTOstent placement COMPARISON STUDY: None FLUOROSCOPY TIME: 25 seconds NUMBER OF FLUOROSCOPIC IMAGES: 3 FINDINGS: Retrograde pyelogram with successful right-sided stent placement IMPRESSION: Retrograde pyelogram was successful right-sided stent placement The above report was generated using voice recognition software. It may contain grammatical, syntax or spelling errors. Electronically signed by: Kedar Kaplan M.D. 03/14/2019 4:01 PM
--- NOTE | 2019-03-14 16:48 | Anesthesiology Progress Note ---
Date of Service March 14, 2019 Anesthesia Post Procedure Vital Signs Vital Signs: Temp Pulse Pulse Pulse Resp BP BP 03/14/19 16:35 36.2 C L 66 16 125/74 03/14/19 16:25 64 14 112/79 03/14/19 16:15 68 12 106/70 03/14/19 16:06 36.2 C L 65 14 100/57 L 03/14/19 15:08 36.8 C 71 18 174/99 H 03/14/19 07:29 36.5 C 68 20 146/94 H 03/13/19 22:54 36.7 C 75 16 136/83 03/13/19 20:30 36.7 C 81 86 20 155/96 H 03/13/19 18:00 78 18 135/81 Pulse Ox 03/14/19 16:35 95 03/14/19 16:25 100 03/14/19 16:15 97 03/14/19 16:06 98 03/14/19 15:08 98 03/14/19 07:29 99 03/13/19 22:54 95 03/13/19 20:30 90 03/13/19 18:00 96 Pain Intensity Right Abdomen: Pain Intensity: 2 Right Groin: Pain Intensity: 2 Left Abdomen: Pain Intensity: 2
[2019-03-14] MEDS: CIPROFLOXACIN 500 MG TAB PO SCH (20:07)
[2019-03-14] MEDS: PHENAZOPYRIDINE HCL 200 MG TAB PO PRN (20:07)
[2019-03-15] MEDS: HYDROmorphone INJ 1 MG/ML SYRINGE IV PRN ×9 (01:02→22:13)
[2019-03-15] MEDS: OXYCODONE HCL IR 5 MG TAB (IMMEDIATE RELEASE) PO PRN ×5 (03:45→23:20)
[2019-03-15] MEDS: SODIUM CHLORIDE 0.9% 1000ML 1,000 ML IV SCH ×3 (03:45→23:20)
[2019-03-15 06:32] LABS: Basophils # (auto) 0.01 K/uL (0-0.2); Basophils % (auto) 0.1 %; Hematocrit (blood only) 45.8 % (42-52); Hemoglobin 15.5 g/dL (14.0-18.0); Immature Granulocytes # (auto) 0.03 K/uL (0.00-0.02); Immature Granulocytes % (auto) 0.3 %; Lymphocytes % (auto) 8.1 %; Mean Corpuscular Hgb Conc 33.8 g/dL (32-36); Mean Corpuscular Volume 85.8 fL (80-100); Mean Platelet Volume 11.5 fL (7.4-10.4); Monocytes # (auto) 0.73 K/uL (0.11-0.59); Monocytes % (auto) 7.4 %; Neutrophils # (auto) 8.35 K/uL (1.4-6.5); Neutrophils % (auto) 84.1 %; Platelet Count 193 K/uL (130-400); RDW Coefficient of Variation 14.2 % (11.5-14.5); RDW Standard Deviation 44.6 fL (36.4-46.3); Red Blood Count 5.34 M/uL (4.7-6.1); White Blood Count 9.92 K/uL (4.8-10.8)
[2019-03-15 06:56] LABS: Albumin Globulin Ratio 1.2 (0.9-2); Albumin Level 3.3 gm/dl (3.4-5.0); BUN Creatinine Ratio 21.6 (10-20); Bilirubin,Total 0.4 mg/dl (0.2-1); Calcium 8.7 mg/dl (8.5-10.1); Creatinine Clr Calc Pharmacy 148.4 ml/min; Est GFR (African American) 115.1; Est GFR (Non-African American) 99.3; Globulin 2.8 gm/dl (2.5-4.0); Potassium 4.4 mmol/L (3.5-5.1); Total Protein 6.1 gm/dl (6.4-8.2)
--- NOTE | 2019-03-15 07:53 | Urology Progress Note ---
Date of Service March 15, 2019 Assessment & Plan (1) Right ureteral calculus: A/P 39 yo male POD#1 s/p R uscope, laser litho and stent. Doing well. Stable from perspective for DC home. OP f/u in 1-2 weeks for cysto, stent removal with KUB beforehand. Expected stent symptom and stone prevention strategies reviewed. Thank you for allowing us to participate in this patient's acute care. Please recall our service as needed with any further questions or concerns. Subjective 39 yo male POD#1 s/p R uscope, laser litho and stent. He complains of typical stent irritation - bladder pressure, back and RLQ pain. Hematuria noted. Intraop findings reviewed with patient. No other c/o. Review of Systems Constitutional: no fever and no chills Eyes: no diplopia Ear, Nose, Mouth, Throat: no ear trauma Respiratory: no hemoptysis Cardiovascular: no chest pain Integumentary: no acne and no boil Neurologic: no paralysis Psychiatric: no hopelessness Allergy / Immunological: no tongue swelling Physical Exam Constitutional: well developed and well nourished; no acute distress Eyes: eyes not dysmorphic ENMT: Ears: no external ear abnormality Neck: trachea midline; no anterior neck swelling Respiratory: no respiratory distress and does not use accessory muscles Cardiovascular: Vessels: radial pulses present Gastrointestinal (Abdomen): Inspection/Auscultation: abdomen not distended Percussion/Palpation: abdomen soft; abdomen nontender Musculoskeletal: Head/Neck/Chest: normocephalic and neck supple Skin: normal turgor Neurologic: awake; not obtunded Psychiatric: Orientation: oriented x 3 Lymphatic: no lymphadenopathy Results & Data Vital Signs (Past 12 Hours) Vital Signs Temp Pulse Resp BP Pulse Ox 03/15/19 03:35 36.9 C 71 18 119/77 94 03/14/19 23:29 36.7 C 76 18 125/82 96 03/14/19 20:08 36.9 C 81 18 134/85 95 PG Care Time/CCT Total # of Minutes Spent Total Time Spent with Patient: Total time spent is greater than 50% in coordination of care (as documented) at patient's floor/unit and/or counseling patient:
--- NOTE | 2019-03-15 07:54 | Anesthesiology Progress Note ---
Date of Service March 15, 2019 Anesthesia Post Procedure Vital Signs Vital Signs: Temp Pulse Pulse Resp BP Pulse Ox 03/15/19 03:35 36.9 C 71 18 119/77 94 03/14/19 23:29 36.7 C 76 18 125/82 96 03/14/19 20:08 36.9 C 81 18 134/85 95 03/14/19 19:38 36.6 C 77 16 130/85 93 03/14/19 18:04 36.3 C L 72 16 121/80 98 03/14/19 17:33 36.3 C L 68 17 128/81 93 03/14/19 16:35 36.2 C L 66 16 125/74 95 03/14/19 16:25 64 14 112/79 100 03/14/19 16:15 68 12 106/70 97 03/14/19 16:06 36.2 C L 65 14 100/57 L 98 03/14/19 15:08 36.8 C 71 18 174/99 H 98 Pain Intensity Right Abdomen: Pain Intensity: 7 Right Groin: Pain Intensity: 2 Left Abdomen: Pain Intensity: 2 Perineal: Pain Intensity: 8 Notes Mental Status: alert / awake / arousable and participated in evaluation Nausea / Vomiting: adequately controlled Pain: adequately controlled Airway Patency, RR, SpO2: stable & adequate BP & HR: stable & adequate Hydration State: stable & adequate
[2019-03-15] MEDS: CIPROFLOXACIN 500 MG TAB PO SCH (08:53)
[2019-03-15] MEDS: ACETAMINOPHEN 325 MG TAB PO PRN ×4 (08:53→23:19)
[2019-03-15] MEDS: METOPROLOL SUCC 50MG EXT REL TAB PO SCH ×2 (08:54→21:44)
[2019-03-15] MEDS: CEFDINIR 300 MG CAP PO SCH ×2 (08:54→21:44)
[2019-03-15] MEDS: TAMSULOSIN HCL 0.4 MG CAP PO SCH (08:54)
[2019-03-15] MEDS: PHENAZOPYRIDINE HCL 200 MG TAB PO PRN ×2 (08:54→19:11)
--- NOTE | 2019-03-15 15:26 | Hospitalist Progress Note ---
Date of Service March 15, 2019 Assessment & Plan (1) Ureterolithiasis: Continue MedSurg Vital signs every 4 hours Continue pain management with Dilaudid 1.5 mg every 2 hours as needed for pain relief and Oxycodon immediate release every 4 hours for pain as needed since patient reported right flank pain after the surgery Continue Zofran 4 mg every 6 hours for nausea and vomiting as needed Good p.o. intake stop IV fluids Appreciate urology recommendations Monitor labs CBC CMP and replenish electrolytes as necessary Continue Omnicef and Cipro per urology recommendations and prophylactically. N.p.o. after midnight DVT prophylaxis patient is ambulatory at low risk for DVT Plan to discharge patient home as soon as he is ready. OP f/u in 1-2 weeks for cysto, stent removal with KUB beforehand. Expected stent symptom and stone prevention strategies reviewed. Full code (2) Renal colic on right side: As the above pain management (3) History of endocarditis: Patient had in the past endocarditis. He was already placed on cefdinir 300 mg p.o. every 12 12 hours for 7 days. Patient does not have any urinary tract infection at this time that would mandate extensive antibiotic use. (4) Hypertension: Stable continue metoprolol succinate 100 mg tablet every 24 hours. EKG pending. Subjective Patient seen and examined at the bedside. POD#1 s/p R uscope, laser litho and stent. He complains of typical stent irritation - bladder pressure, back and RLQ pain. Hematuria noted. Intraop findings reviewed with patient. Patient requested pain medication to soothe his pain. Patient denies fever chills chest pain shortness of breath abdominal pain frequency urgency. Complains of right- sided flank pain and hematuria. Review of Systems Review of Systems: All systems reviewed & are unremarkable except as noted in HPI & below Physical Exam Constitutional: WD/WN, vitals as above well developed Eyes: PERRL, conjunctivae normal, anicteric sclerae ENMT: external ear and nose normal, oropharynx normal Neck: trachea midline, no thyromegaly Respiratory: normal respiratory effort, lungs clear to auscultation Cardiovascular: RRR, no murmur, no edema Gastrointestinal (Abdomen): normal bowel sounds, soft, nontender, no hepatosplenomegaly Musculoskeletal: no cyanosis or clubbing, extremities motor strength 5/5 Skin: no rashes, warm and dry Neurologic: patellar DTR's 2+ bilat, sensation intact Psychiatric: A+Ox3, euthymic affect Lymphatic: no cervical or axillary lymphadenopathy Results & Data Vital Signs (Past 12 Hours) Vital Signs Temp Pulse Pulse Resp BP Pulse Ox 03/15/19 08:56 73 133/82 03/15/19 03:35 36.9 C 71 18 119/77 94 PG Care Time/CCT Total # of Minutes Spent Total Time Spent with Patient: Total time spent is greater than 50% in coordination of care (as documented) at patient's floor/unit and/or counseling patient:
[2019-03-15] MEDS: ONDANSETRON INJ 2 MG/ML 2 ML VIAL IV PRN (19:12)
[2019-03-16] MEDS: HYDROmorphone INJ 1 MG/ML SYRINGE IV PRN ×6 (00:18→10:44)
[2019-03-16] MEDS: OXYCODONE HCL IR 5 MG TAB (IMMEDIATE RELEASE) PO PRN ×2 (03:35→07:42)
[2019-03-16] MEDS: PHENAZOPYRIDINE HCL 200 MG TAB PO PRN (03:35)
[2019-03-16] MEDS: ACETAMINOPHEN 325 MG TAB PO PRN ×2 (03:35→07:43)
[2019-03-16 07:23] LABS: Albumin Level 3.5 gm/dl (3.4-5.0); BUN Creatinine Ratio 19.7 (10-20); Calcium 8.7 mg/dl (8.5-10.1); Creatinine Clr Calc Pharmacy 148.4 ml/min; Est GFR (African American) 115.1; Est GFR (Non-African American) 99.3; Potassium 4.1 mmol/L (3.5-5.1)
[2019-03-16 07:26] LABS: Albumin Globulin Ratio 1.3 (0.9-2); Bilirubin,Total 0.3 mg/dl (0.2-1); Globulin 2.6 gm/dl (2.5-4.0); Total Protein 6.1 gm/dl (6.4-8.2)
[2019-03-16] MEDS: METOPROLOL SUCC 50MG EXT REL TAB PO SCH (08:39)
[2019-03-16] MEDS: TAMSULOSIN HCL 0.4 MG CAP PO SCH (08:39)
[2019-03-16] MEDS: CEFDINIR 300 MG CAP PO SCH (08:39)
[2019-03-16] MEDS: SODIUM CHLORIDE 0.9% 1000ML 1,000 ML IV SCH (08:42)
--- NOTE | 2019-03-16 10:15 | Hospitalist Progress Note ---
Date of Service March 16, 2019 Assessment & Plan (1) Ureterolithiasis: Pt is eager to go home. Continue Omnicef 300 mg BID PO for 3 more days, Cipro stopped per urology. Given Tamsulosin and Pyridium per urology recommendations. Baclofen 10 mg PO TID prn for back pain and muscle spasm short term -3 days supply. OP f/u in 1-2 weeks for cysto, stent removal with KUB beforehand. Expected stent symptom and stone prevention strategies reviewed. Full code (2) Renal colic on right side: As the above pain management (3) History of endocarditis: Patient had in the past endocarditis. He was already placed on cefdinir 300 mg p.o. BID , p[t has at home. Complete the course as prescribed by urology. (4) Hypertension: Stable continue metoprolol succinate 100 mg tablet every 24 hours.EKG -NSR with first degree AV block.Otherwise normal. Pt does not have compliant of chest pain. Subjective Patient seen and examined at the bedside. POD#2 s/p R uscope, laser litho and stent. He complains of typical stent irritation - bladder pressure, back and RLQ pain. Hematuria noted. Intraop findings reviewed with patient. Patient continues to request pain medication to soothe his pain.He stated that Dilaudid 2 mg PO Q8 hr helps him through out the day. Pt refused to be managed and seen by the pain specialist at [facility]. [facility] pharmacy called to check the status of pt previous prescribed narcotic used and it was determined that pt filled out Percocet 2 days ago and one day before his admission to the hospital prescribed by Dr. Merna Peña. Pt informed that he cannot have multiple pain medication providers and Dilaudid prescription was canceled and Pharmacist Yaya at [facility] pharmacy [place] [address] informed to delete the electronic prescription if it goes through. Yaya confirmed that he did not receive any electronic transmission for Dilaudid but if he does he wi ll delete it. Other then this issues, Patient denies fever chills chest pain shortness of breath abdominal pain frequency urgency. Pt is eagar to go home. He will follow up with PCP in 7 days and have KUB done in the PCP office before he follows up with urology in 7-14 days. Pt should continue Cefdinir 300 mg PO BID for 3 more days which he said he already has supply at home. Given Flomax 0.4 mg PO daily for 30 days no refill, Pyridium 200 mg PO prn TID (#10) and Baclofen for muscle spasm and back pain 10 mg TID prn (#10). Review of Systems Review of Systems: All systems reviewed & are unremarkable except as noted in HPI & below Physical Exam Constitutional: WD/WN, vitals as above well developed Eyes: PERRL, conjunctivae normal, anicteric sclerae ENMT: external ear and nose normal, oropharynx normal Neck: trachea midline, no thyromegaly Respiratory: normal respiratory effort, lungs clear to auscultation Cardiovascular: RRR, no murmur, no edema Gastrointestinal (Abdomen): normal bowel sounds, soft, nontender, no hepatosplenomegaly Musculoskeletal: no cyanosis or clubbing, extremities motor strength 5/5 Skin: no rashes, warm and dry Neurologic: patellar DTR's 2+ bilat, sensation intact Psychiatric: A+Ox3, euthymic affect Lymphatic: no cervical or axillary lymphadenopathy Results & Data Vital Signs (Past 12 Hours) Vital Signs Temp Pulse Pulse Resp BP BP Pulse Ox 03/16/19 07:46 36.9 C 69 16 150/98 H 95 03/15/19 23:41 36.8 C 72 18 154/92 H 97 PG Care Time/CCT Total # of Minutes Spent Total Time Spent with Patient: Total time spent is greater than 50% in coordination of care (as documented) at patient's floor/unit and/or counseling patient:
[2019-03-16] MEDS ORDERED: HYDROmorphone INJ 2 MG/ML SYR/VIAL IV STA (11:23)
--- NOTE | 2019-03-16 11:44 | Discharge Summary ---
Date of Service March 16, 2019 Admission HPI Per Admitting Provider Patient is a 39 years old male with past medical history of endocarditis and migraine who presents to the emergency department with continued right-sided abdominal and flank pain. Patient was found to have ureteral calculi approximately 36 hours ago at [facility] on the CT scan imaging. Patient have seen urologist in the past and his appointment is scheduled for tomorrow. For the past 36 hours patient is taking oral oxycodone, Zofran, and Omnicef, but states that that minimally relieved his pain. Patient reports that pain is red radiating to his right testicle and t is shooting. Patient said that he was drinking lots of water and his urine is clear looking and better than before. Patient reports that he had a low-grade fever. He denies chest pain shortness of breath frequency urgency nausea or vomiting. Patient reports that his pain is 10 of 10. Labs are reviewed: WBC is 7.39, hemoglobin 15.6, hematocrit 45.3, platelets 192, sodium 139, potassium 3.6, chloride 105, anion gap 4, BUN 16, creatinine 1.06, GFR 89.2, glucose 96, AST 12, ALT 26, urine positive for epithelial cells and trace urine blood otherwise negative. KUB shows that there is unchanged position of 4 mm right ureteral calculus at the level of L3. Sound shows mild right-sided hydronephrosis. Abdomen CT pelvis from the day before shows no evidence of bowel obstruction. No evidence of free air. 4 mm proximal right ureteral calculus at the L3 level with secondary obstructive changes. Decision was made to admit patient to PCU telemetry for nephrolithiasis pain relief and evaluation for possible surgery in the morning. Principal Diagnosis none Discharge Exam Constitutional WD/WN, vitals as above well developed Eyes PERRL, conjunctivae normal, anicteric sclerae ENMT external ear and nose normal, oropharynx normal Neck trachea midline, no thyromegaly Respiratory normal respiratory effort, lungs clear to auscultation Cardiovascular RRR, no murmur, no edema Gastrointestinal (Abdomen) normal bowel sounds, soft, nontender, no hepatosplenomegaly Musculoskeletal no cyanosis or clubbing, extremities motor strength 5/5 Skin no rashes, warm and dry Neurologic patellar DTR's 2+ bilat, sensation intact Psychiatric A+Ox3, euthymic affect Lymphatic no cervical or axillary lymphadenopathy Discharge Data Allergies Allergy/AdvReac Type Severity Reaction Status Date / Time adhesive Allergy Unknown SKIN Verified 03/13/19 14:12 IRRITATION WITH BANDAIDS metoclopramide AdvReac Mild anxiety Verified 03/13/19 14:12 Consultations 03/13/19 14:56 ED Decision to Admit Stat 03/13/19 20:29 Consult Urology Routine 03/14/19 08:55 Consult Patient Rep / Service Excellence [Consult Patient Services] Routine Procedures Performed Operation Date: 03/14/19 08:50 Actual Procedures p Cystoscopy, Right Retrograde Pyelogram, Right Semi Rigid Ureteroscopy, Basket Stone Extraction, Laser Lithotripsy(Right) - Roberto Hopper MD s Right Stent Placement(Right) - Roberto Hopper MD Ordered Studies 03/13/19 12:05 US renal/blad retro comp Stat 03/14/19 [place] retrograde includes kub Routine Hospital Course (1) Ureterolithiasis: Pt is eager to go home. Continue Omnicef 300 mg BID PO for 3 more days, Cipro stopped per urology. Given Tamsulosin and Pyridium per urology recommendations. Baclofen 10 mg PO TID prn for back pain and muscle spasm short term -3 days supply. OP f/u in 1-2 weeks for cysto, stent removal with KUB beforehand. Expected stent symptom and stone prevention strategies reviewed. Full code (2) Renal colic on right side: As the above pain management (3) History of endocarditis: Patient had in the past endocarditis. He was already placed on cefdinir 300 mg p.o. BID , p[t has at home. Complete the course as prescribed by urology. (4) Hypertension: Stable continue metoprolol succinate 100 mg tablet every 24 hours.EKG -NSR with first degree AV block.Otherwise normal. Pt does not have compliant of chest pain. Total Time Total Time Spent Total Time Spent (In Minutes): over 30 min Discharge Plan Discharge Items Patient Disposition: Home - Self-Care Reason For Visit: NEPHROLITHIASIS,RENAL COLIC Discharge Diagnosis: nephrolithiasis Condition on Discharge: Good Activity: Resume your previous activity Lifting: Gradually increase as tolerated Non-emergency contact: Primary Care Provider Call non-emergency contact if: you have any medication questions, your symptoms worsen, your pain is not controlled, your pain is worsening, your pain is unusual for you, your pain is concerning for you, you have a fever and your rectal temperature is above 100.4 Follow-up/Referrals: Randy Kwan MD [Primary Care Provider] - 03/20/19 2:30 pm (Please, follow up at Dr. Randy Kwan's office with his associate, Leatha Law PA-C, on MondayMarch 20 at 2:30 pm. *If you need to change this appointment, call the office at [phone].) Roberto Hopper MD [Physician] - 03/27/19 1:10 pm (Please go for x-ray at the hospital the night before or morning of prior to your appointment. Use the [facility] Main Entrance and speak to motel front desk attendant loading unit operator seating. You will not need an appointment for this. Then report to our office for stent removal. ) Diet: Heart Healthy Diet Comment: good fluid intake Addtl Attending Provider Instructions: Continue Cefdinir for 3 more days. Follow up in 1-2 weeks for cysto, stent removal with KUB beforehand.Please follow up with PCP in 7 days and have KUB- abdominal Xrays done before you follow up with urology clinic. Pending Studies at Discharge: Yes (KUB Xray prior to follow-up) Stand-Alone Forms: My [facility] Medications and DC Order Prescriptions: New phenazopyridine [Pyridium] 200 mg Tablet 200 mg PO TID PRN (Reason: pain) 3 Days Qty: 10 RF: 0 tamsulosin [Flomax] 0.4 mg capsule 0.4 mg PO DAILY Qty: 30 RF: 0 baclofen 10 mg tablet 10 mg PO TID MDD 3 tablets PRN (Reason: pain and spasam) Qty: 10 RF: 0 Continued metoprolol succinate 100 mg tablet extended release 24 hr 100 mg PO BID Qty: 60 RF: 0 cefdinir 300 mg capsule 300 mg PO Q12H 7 Days Qty: 14 RF: 0 Discontinued ondansetron HCl 8 mg Tablet 8 mg PO TID PRN (Reason: Nausea) RF: 0 ondansetron HCl [Zofran] 4 mg tablet 4 mg PO Q6H Qty: 10 RF: 0 tamsulosin [Flomax] 0.4 mg capsule 0.4 mg PO DAILY Qty: 14 RF: 0 oxycodone 5 mg tablet 5 mg PO Q6H PRN (Reason: pain) Qty: 14 RF: 0 Discharge Orders: Discharge Order (Routine); Ordered 03/16/19 Ordered By: Ellen Lambert/Other Patient Handouts: Stents Ureteral Admission Data Admit Date/Time: 03/13/19 18:43 Attending Provider: Ellen Dobson Admit Provider: Ellen Dobson Primary Care Provider: Randy Kwan Other Providers: John Peterson ; Joselito Nieves Other Interventions: Discharge Summary Assessment (RN) Last Done: 03/16/19 11:30
[2019-03-22 07:40] LABS: Component 2 DNR
== END 2019-03-16 11:53 | disposition home or self-care (01) | DRG 661 ==
LOC: ED 11:23 → 3N 18:43

== ENCOUNTER 2019-03-18 15:27 | Observation (INO) ==
[2019-03-18] MEDS ORDERED: HYDROmorphone INJ 0.5 MG/0.5 ML SYR IV STA ×3 (16:15→22:05)
[2019-03-18] MEDS ORDERED: ONDANSETRON INJ 2 MG/ML 2 ML VIAL IV STA (16:15)
[2019-03-18] MEDS ORDERED: SODIUM CHLORIDE 0.9% 1000ML 1,000 ML IV SCH (16:15)
--- NOTE | 2019-03-18 18:06 | XRay Report ---
KUB CLINICAL HISTORY: Nephrolithiasis. FINDINGS: 2 AP supine abdominal radiographs are compared to study dated 03/13/2019 and correlated wit h abdominal CT dated 03/11/2019. There is a nonobstructed abdominal bowel gas pattern. A right ureter al stent is new from previous. No calcifications are identified along the course of the stent. No lidia cifications are clearly seen projecting over either kidney. The bony structures appear intact. IMPRESSION: 1. A right ureteral stent is new from previous. No calcifications are identified along the course of the stent. 2. No calcifications are seen projecting over either kidney. Electronically signed by: Donte Desai M.D. 03/18/2019 6:05 PM
[2019-03-18] MEDS ORDERED: KETOROLAC 30 MG/ML VIAL IV STA (18:20)
[2019-03-18] MEDS ORDERED: SODIUM CHLORIDE 0.9% 1000ML 1,000 ML IV ONE (18:21)
[2019-03-18] MEDS ORDERED: HYDROmorphone INJ 1 MG/ML SYRINGE IV STA (18:30)
[2019-03-18 18:52] LABS: Basophils # (auto) 0.03 K/uL (0-0.2); Basophils % (auto) 0.3 %; Eosinophils # (auto) 0.07 K/uL (0-0.5); Eosinophils % (auto) 0.7 %; Hematocrit (blood only) 46.5 % (42-52); Hemoglobin 16.4 g/dL (14.0-18.0); Immature Granulocytes # (auto) 0.03 K/uL (0.00-0.02); Immature Granulocytes % (auto) 0.3 %; Lymphocytes % (auto) 14.5 %; Mean Corpuscular Hemoglobin 29.7 pg (25-34); Mean Corpuscular Hgb Conc 35.3 g/dL (32-36); Mean Corpuscular Volume 84.2 fL (80-100); Mean Platelet Volume 10.9 fL (7.4-10.4); Monocytes # (auto) 0.93 K/uL (0.11-0.59); Neutrophils # (auto) 7.78 K/uL (1.4-6.5); Neutrophils % (auto) 75.2 %; Platelet Count 179 K/uL (130-400); RDW Coefficient of Variation 14.3 % (11.5-14.5); RDW Standard Deviation 44.5 fL (36.4-46.3); Red Blood Count 5.52 M/uL (4.7-6.1); White Blood Count 10.34 K/uL (4.8-10.8)
[2019-03-18 19:14] LABS: Albumin Level 3.9 gm/dl (3.4-5.0); BUN Creatinine Ratio 12.6 (10-20); Calcium 8.8 mg/dl (8.5-10.1); Est GFR (African American) 124.3; Est GFR (Non-African American) 107.3; Potassium 3.8 mmol/L (3.5-5.1)
[2019-03-18 19:26] LABS: Albumin Globulin Ratio 1.4 (0.9-2); Bilirubin,Total 0.3 mg/dl (0.2-1); Globulin 2.8 gm/dl (2.5-4.0); Total Protein 6.7 gm/dl (6.4-8.2)
[2019-03-18 20:06] LABS: Appearance Urine Turbid (Clear); Bacteria Urine Automated Negative (Negative); Bilirubin Urine Negative (Negative); Blood Urine 3+ (Negative); Color Urine Dark Yellow; Epithelial Cell Urine Auto 20-30 /lpf (0-5); Glucose Urine UA Negative (Negative); Ketones Urine Negative (Negative); Leukocyte Esterase Urine 2+ (Negative); Nitrite Urine Positive (Negative); RBC Urine Automated >30 /hpf (0-4); Specific Gravity Urine 1.015 (1.000-1.030); Urobilinogen Urine Negative (Negative); pH Urine >= 9.0 (4.5-7.5)
[2019-03-18] MEDS ORDERED: CIPROFLOXACIN 400 MG/200 ML BAG IV STA (20:16)
[2019-03-18 20:23] LABS: Protein Urine Negative (Negative); Sulfosalicylic Acid Urine Negative (Negative)
--- NOTE | 2019-03-18 21:58 | History & Physical Report ---
Date of Service March 18, 2019 Assessment & Plan (1) Intractable abdominal pain: 39 yo Male presents with intractable abdominal pain and nausea likely 2/2 recent right ureteral stent placement, found to have UA consistent with UTI; admitted to get pain under control and treat UTI. Abdominal/back/groin pain with prior Hx. of ureterolithiasis s/p right stent placement - urology consulted - pain control with Toradol 15 mg Q6H PRN, Dilaudid 1 mg IV Q3H PRN, Aceta minophen 650 mg Q4H PRN - no stones noted on KUB - US renal bladder ordered to evaluate renal system for further obstruction - Cr. currently 0.91, continue to monitor with daily BMP - Fluid 125 mL/hr. Acute complicated UTI - UA w/ pH >9, + Nitrites, + LCE, +WBC - previously on Cefdinir 300 mg PO Q12 - placed on Ciprofloxacin 500 mg PO Q12 - urine cultures obtained - follow up cultures and sensitivities HTN - continue home Metoprolol Succinate ER 100mg - BP 142/80, continue to monitor Headache - history of cluster headaches - one year prior was taking Dilaudid for headaches, also previously on Ketamine while inpatient - currently not taking any medication for headaches BPH - continue home Tamsulosin .4 mg PO daily DVT: low risk young patient up ad marilu, SCDs FEN/GI: nl electrolytes, GI prophylaxis not necessary Fluid: 125 mL/hr NSS Dispo: med surg (2) Acute UTI: (3) Failure of outpatient treatment: (4) Ureterolithiasis: (5) Renal colic on right side: (6) History of endocarditis: (7) Hypertension: (8) Migraine: (9) BPH (benign prostatic hyperplasia): History of Present Illness Chief Complaint: Abdominal/groin/lower back pain Primary Care Provider: Randy Kwan MD Ace Tong was recently admitted from 03/13/2019 - 03/16/2019 for nephrolithiasis: cystoscopy with basket stone extraction (4mm stone), laser lithotripsy with right stent. He feels that his pain was not well controlled with the medications given on discharge. He noticed that his urine was dark in color but this might have been secondary to being on phenazopyridine. His pain was as described below. He has a history of previous obstruction that required bilateral stent stents in 2016. There was no clear cause of the stones in prior workup. 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 History of Neurofibromatosis that was diagnosed at 1 day old. History of headaches previously treated with Dilaudid 1 year ago, currently not on any medication. Family Hx.: no family history of kidney stones Social Hx.: Lives at home with and 3 MO daughter ETOH: approx. 1 drink per week Tobacco: never Rec drugs: none Sexual Hx.: hetero one partner Exercise: decreased frequency over the last year Allergies Allergy/AdvReac Type Severity Reaction Status Date / Time adhesive Allergy Unknown SKIN Verified 03/18/19 15:58 IRRITATION WITH BANDAIDS metoclopramide AdvReac Mild anxiety Verified 03/18/19 15:58 Home Medications Home Medications Medication Instructions Recorded Confirmed Type metoprolol succinate ER 100 mg 100 mg PO BID #60 tab 01/21/19 03/18/19 History tablet,extended release 24 hr baclofen 10 mg PO TID PRN #10 tab MDD 3 03/16/19 03/18/19 Rx tablets tamsulosin [Flomax] 0.4 mg PO DAILY #30 cap 03/16/19 03/18/19 Rx Past Med/Surg History Medical History Migraine (Chronic) Hypertension (Chronic) Bilateral kidney stones (Acute) Surgical History H/O hand surgery H/O knee surgery H/O shoulder surgery History of mandibular surgery S/P tonsillectomy and adenoidectomy Family History Mother Hypertension Grandfather Pancreatic cancer Other Diabetes Social History Preferred Language: Moroccan Communication Ability: Effective Sr. Director Product Management Required: No Beliefs That Will Affect Care: None marital status: Current Living Situation: Spouse and Family Other Information That Helps Us Care for You: No Feels Safe at Home: Yes Safety Concerns: Feels Safe At This Time Smoking Status: Never smoker Do You Dip or Chew Tobacco: No ; Second Hand Exposure: No ; Tobacco Cessation Education Requested by Patient: No Hx Alcohol Use: Yes Alcohol type: beer Hx Substance Use: No Review of Systems Constitutional: + fever (subjective), + chills, + sweats and + fatigue Respiratory: no cough, no dyspnea, no hemoptysis and no sputum production Cardiovascular: no chest pain, no dyspnea, no orthopnea, no paroxysmal nocturnal dyspnea, no palpitations, no syncope, no edema and no calf pain Gastrointestinal: + abdominal pain, + nausea and + vomiting Genitourinary: + dysuria, + urinary frequency, + nocturia, + hematuria, + flank pain and + urinary urgency; no urinary incontinence Musculoskeletal: + back pain Neurologic: no falls and no syncope Psychiatric: no depression and no anhedonia Endocrine: + fatigue Hematologic / Lymphatic: no easy bleeding, no easy bruising and no unexplained weight loss Physical Exam Constitutional: WD/WN, vitals as above nl hygiene, nl affect, appears own age, no acute distress Eyes: + anicteric sclerae and EOM intact bilaterally pupils constricted, round and reactive to light ENMT: external ear and nose normal, oropharynx normal Neck: normal visual inspection and trachea midline Thyroid: no thyromegaly Respiratory: normal respiratory effort, lungs clear to auscultation no cough Auscultation: no rales, no rhonchi, no wheezes and no pleural rub Cardiovascular: RRR, no murmur, no edema Heart Sounds: normal S1 and normal S2 Vessels: radial pulses present Extremities: normal capillary refill; no calf tenderness, no pedal edema and no edema Chest (Breasts): normal inspection/palpation of breasts Gastrointestinal (Abdomen): Inspection/Auscultation: abdomen normal to inspection; abdomen not distended Percussion/Palpation: + abdomen tender (tender in the right lower abdomen); no guarding and abdomen not rigid Musculoskeletal: no cyanosis or clubbing, extremities motor strength 5/5 Skin: no rashes, warm and dry Neurologic: CN's II-XI intact bilaterally Speech / Cognition: normal speech Cranial Nerves: EOM intact bilaterally Psychiatric: A+Ox3, euthymic affect Genitourinary: + CVA tenderness (right sided) Lymphatic: no cervical or axillary lymphadenopathy Results & Data Vital Signs (Past 12 Hours) Vital Signs Temp Pulse Pulse Resp BP BP Pulse Ox 03/18/19 19:25 87 20 142/80 H 96 03/18/19 18:27 85 21 134/95 99 03/18/19 16:59 93 H 24 153/89 H 97 03/18/19 15:36 36.7 C 129 H 18 145/75 H 96 KUB CLINICAL HISTORY: Nephrolithiasis. FINDINGS: 2 AP supine abdominal radiographs are compared to study dated 03/13/2019 and correlated with abdominal CT dated 03/11/2019. There is a nonobstructed abdominal bowel gas pattern. A right ureteral stent is new from previous. No calcifications are identified along the course of the stent. No calcifications are clearly seen projecting over either kidney. The bony structures appear intact. IMPRESSION: 1. A right ureteral stent is new from previous. No calcifications are identified along the course of the stent. 2. No calcifications are seen projecting over either kidney. Code Status & VTE Plan VTE Prophylaxis Plan VTE Prophylaxis will be ordered: Yes Supervising Physician Co-Signing Physician Notes Patient seen and examined, chart reviewed, case discussed with Dr. Crooks and I agree with his assessment and plan as documented above. Briefly, patient is a 39yo C male with history of NAVARRO, HTN and BPH presenting with bilateral back pain. Patient with recent right ureteral stent placement. He has been on Cefdinir outpatient. On exam he is afebrile, HD stable, NAD, mild discomfort secondary to pain HEENT - NC/AT, PERRL, MMM, neck supple Heart - +S1/S2, regular, no m/r/g Lungs - CTA Abd - +BS, soft, NT/ND Ext - warm, well perfused, no clubbing/cyanosis or edema Labs and images reviewed Assessment/Plan: 39yo C male presenting with flank pain, s/p renal stent placement. Stent is in proper location per KUB, +UOP -Admit to medical floor -Cipro for antibiotic coverage -Toradol and Dilaudid PRN -IVF, Tylenol PRN -Continue Flomax -Urology consultation appreciated -Remainder of plan as above PG Care Time/CCT Total # of Minutes Spent Total Time Spent with Patient: Total time spent is greater than 50% in coordination of care (as documented) at patient's floor/unit and/or counseling patient: Resident Activity Tracking Resident Involvement: Resident Care Provided Care Provided: Adult [facility]
[2019-03-18] MEDS ORDERED: POLYETHYLENE (MIRALAX) 17 GM PACK PO PRN (22:25)
[2019-03-18] MEDS ORDERED: ACETAMINOPHEN 325 MG TAB PO PRN (22:25)
[2019-03-18] MEDS ORDERED: HYDROmorphone INJ 0.5 MG/0.5 ML SYR IV PRN (22:25)
[2019-03-18] MEDS ORDERED: BACLOFEN 10 MG TAB PO PRN (22:25)
--- NOTE | 2019-03-18 23:25 | Emergency Department Note ---
Entered by Yue Lopes acting as a scribe for Zane Cooper MD History of Present Illness General Chief complaint: Kidney Stone Stated complaint: KIDNEY STONE ISSUE Source: patient History of Present Illness Provider complaint: Kidney Stone Onset (ago): day(s) 2 Location: abdomen and right Radiation: other (Testicles ) Maximum Pain Intensity: 10 Quality: + sharp Relieved By: + none Associated symptoms: + diaphoresis, + nausea/vomiting and + other (Dysuria ) The patient is a 39 year old male who presents to the Emergency Room with complaints of right sided sharp abdominal pain that began 2 days ago after he underwent removal of a ureteral stone. The patient states the pain is not relieved by anything specific and radiates from his right abdomen to his testicles. He states he had the same pain when he was diagnosed with a kidney stone originally. He was told that he had a 4 mm stone on the right side. The patient reports experiencing diaphoresis and nausea/vomiting due to the pain. Additionally, the patient has been experiencing pain when he urinates. The patient notes that he is on antibiotics but does not have any pain medication. He has been compliant with the antibiotic regimen. Home Medications Home Medications Medication Instructions Recorded Confirmed Type metoprolol succinate ER 100 mg 100 mg PO BID #60 tab 01/21/19 03/18/19 History tablet,extended release 24 hr cefdinir 300 mg PO Q12H 7 Days #14 cap 03/12/19 03/18/19 Rx baclofen 10 mg PO TID PRN #10 tab MDD 3 03/16/19 03/18/19 Rx tablets phenazopyridine [Pyridium] 200 mg PO TID PRN 3 Days #10 tab 03/16/19 03/18/19 Rx tamsulosin [Flomax] 0.4 mg PO DAILY #30 cap 03/16/19 03/18/19 Rx Allergies Allergy/AdvReac Type Severity Reaction Status Date / Time adhesive Allergy Unknown SKIN Verified 03/18/19 15:58 IRRITATION WITH BANDAIDS metoclopramide AdvReac Mild anxiety Verified 03/18/19 15:58 Past Med/Surg History Medical History Migraine (Chronic) Hypertension (Chronic) Bilateral kidney stones (Acute) Surgical History H/O hand surgery H/O knee surgery H/O shoulder surgery History of mandibular surgery S/P tonsillectomy and adenoidectomy Family History Mother Hypertension Grandfather Pancreatic cancer Other Diabetes Social History Preferred Language: [place] Communication Ability: Effective 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 and A total of 10 systems reviewed and were otherwise negative Physical Exam Vital Signs Vital Signs - 24 hr 03/18/19 15:36 03/18/19 16:48 03/18/19 16:59 Temperature 36.7 C Temperature Source Oral Sepsis Recent Fever Within 48 Hours No Sepsis New/Unexplained Change in Mental Status No Sepsis Action Taken by Nursing No Action Required Pulse Rate 129 H Pulse Rate [Finger] 93 H Pulse Rhythm Regular Pulse Strength Normal Respiratory Rate 18 24 Respiratory Effort / Characteristics Respiratory Depth Respiratory Pattern Blood Pressure 145/75 H Blood Pressure [Left Arm] 153/89 H Blood Pressure Mean 98 Blood Pressure Mean [Left Arm] 110 Blood Pressure Position Sitting Blood Pressure Position [Left Arm] Pulse Oximetry 96 97 Oxygen Delivery Method Room Air Room Air 03/18/19 18:27 03/18/19 19:25 Temperature Temperature Source Sepsis Recent Fever Within 48 Hours Sepsis New/Unexplained Change in Mental Status Sepsis Action Taken by Nursing Pulse Rate Pulse Rate [Finger] 85 87 Pulse Rhythm Pulse Strength Respiratory Rate 21 20 Respiratory Effort / Characteristics Non-Labored Respiratory Depth Normal Respiratory Pattern Regular Blood Pressure Blood Pressure [Left Arm] 134/95 142/80 H Blood Pressure Mean Blood Pressure Mean [Left Arm] 108 100 Blood Pressure Position Blood Pressure Position [Left Arm] Lying Pulse Oximetry 99 96 Oxygen Delivery Method Room Air Room Air Constitutional: Vital signs reviewed. Eyes: Pupils are equal round reactive to light. Conjunctiva are noninjected. ENT: Pharynx is clear without erythema or exudate. Mucous membranes are moist. Neck supple without meningeal signs. Respiratory: Clear to auscultation bilaterally. Breath sounds are equal bilaterally. Cardiovascular: Tachycardic rate and rhythm. No rubs or gallops. GI: Soft, nondistended and nontender. Bowel sounds are present. Musculoskeletal: No peripheral edema. No lower extremity tenderness. No CVA tenderness. Integumentary: No cyanosis. Neurological: The patient is awake and alert. No focal deficits. Psychiatric: Normal affect. Course 1611: Past medical records reviewed. The patient was evaluated in room B12B. A complete history and physical exam was performed. 0: The patient asked for more pain medication and Toradol was ordered but the patient states Toradol does not work for him. He states that he has been on Dilaudid for 3 years in the past. 1926: I reevaluated the patient and he is still in a significant amount of pain so he was given more Dilaudid. 2008: I reevaluated the patient and his pain is better but he says it is still a 12/05. 2009: I spoke with Dr. Nieves- Urology about the patient's case and he said to admit the patient to medicine for IV antibiotics. 2016: I spoke with Dr. Helen Cool- Hospitalist about the patient's case and she will accept the patient for further evaluation and has requested Cipro for the patient's infection. Administered Medications Discontinued Medications Hydromorphone HCl (Dilaudid) 0.5 mg IV NOW STA Stop: 03/18/19 16:16 Last Admin: 03/18/19 17:04 Dose: 0.5 mg Documented by: [id number] Hydromorphone HCl (Dilaudid) 1 mg IV NOW STA Stop: 03/18/19 18:31 Last Admin: 03/18/19 19:21 Dose: 1 mg Documented by: [id number] Hydromorphone HCl (Dilaudid) 0.5 mg IV NOW STA Stop: 03/18/19 20:18 Last Admin: 03/18/19 20:23 Dose: 0.5 mg Documented by: [id number] Hydromorphone HCl (Dilaudid) 0.5 mg IV NOW STA Stop: 03/18/19 22:06 Last Admin: 03/18/19 22:09 Dose: 0.5 mg Documented by: [id number] Sodium Chloride (Nss 1000ml) 1,000 mls @ 999 mls/hr IV .Q1H1M WALDEMAR Stop: 03/18/19 17:15 Last Infusion: 03/18/19 18:11 Dose: 0 mls/hr Documented by: [id number] Admin: 03/18/19 17:04 Dose: 999 mls/hr Documented by: [id number] Sodium Chloride (Nss 1000ml) 1,000 mls @ 999 mls/hr IV .Q1H1M ONE Stop: 03/18/19 19:21 Last Infusion: 03/18/19 19:35 Dose: 0 mls/hr Documented by: [id number] Admin: 03/18/19 18:27 Dose: 999 mls/hr Documented by: [id number] Ciprofloxacin (Cipro) 400 mg in 200 mls @ 200 mls/hr IV NOW STA Stop: 03/18/19 21:15 Last Infusion: 03/18/19 21:38 Dose: 0 mls/hr Documented by: [id number] Admin: 03/18/19 20:23 Dose: 200 mls/hr Documented by: [id number] Ketorolac Tromethamine (Toradol) 10 mg IV NOW STA Stop: 03/18/19 18:21 Last Admin: 03/18/19 18:25 Dose: 10 mg Documented by: [id number] Ondansetron HCl (Zofran) 4 mg IV NOW STA Stop: 03/18/19 16:16 Last Admin: 03/18/19 17:04 Dose: 4 mg Documented by: [id number] Medical Decision Making Differential Diagnosis Differential diagnosis includes: Stent colic, Kidney stone, Hydronephrosis, UTI, Pyelonephritis. Medical Records Attestation: I reviewed the patient's medical records. The patient was admitted March 13 for a 4mm proximal ureteral stone with obstruction. A stent was placed by urology and the patient was sent home with Baclofen and Omnicef. Home Medications Current Medication List: was personally reviewed by me Laboratory Data Attestation: I reviewed the patient's lab results. Result diagrams: 03/18/19 18:29 03/18/19 18:29 Lab Results 03/18/19 03/18/19 03/18/19 Range/Units 18:29 18:29 19:30 WBC 10.34 (4.8-10.8) K/uL RBC 5.52 (4.7-6.1) M/uL Hgb 16.4 (14.0-18.0) g/dL Hct 46.5 (42-52) % MCV 84.2 (80-100) fL MCH 29.7 (25-34) pg MCHC 35.3 (32-36) g/dL RDW Std Deviation 44.5 (36.4-46.3) fL RDW Coeff of Dax 14.3 (11.5-14.5) % Plt Count 179 (130-400) K/uL MPV 10.9 H (7.4-10.4) fL Immature Gran % (Auto) 0.3 % Neut % (Auto) 75.2 % Lymph % (Auto) 14.5 % [place] % (Auto) 9.0 % Eos % (Auto) 0.7 % Baso % (Auto) 0.3 % Immature Gran # (Auto) 0.03 H (0.00-0.02) K/uL Neut # (Auto) 7.78 H (1.4-6.5) K/uL Lymph # (Auto) 1.50 (1.2-3.4) K/uL [place] # (Auto) 0.93 H (0.11-0.59) K/uL Eos # (Auto) 0.07 (0-0.5) K/uL Baso # (Auto) 0.03 (0-0.2) K/uL Sodium 138 (136-145) mmol/L Potassium 3.8 (3.5-5.1) mmol/L Chloride 106 (98-107) mmol/L Carbon Dioxide 26 (21-32) mmol/L Anion Gap 6.0 (3-11) BUN 11 (7-18) mg/dl Creatinine 0.91 (0.6-1.4) mg/dl Est Cr Clr Drug Dosing 145.0 ml/min Est GFR ( Amer) 124.3 Est GFR (Non-Af Amer) 107.3 BUN/Creatinine Ratio 12.6 (10-20) Glucose 81 (70-99) mg/dl Calcium 8.8 (8.5-10.1) mg/dl Total Bilirubin 0.3 (0.2-1) mg/dl AST 12 L (15-37) U/L ALT 23 (12-78) U/L Alkaline Phosphatase 76 (45-117) U/L Total Protein 6.7 (6.4-8.2) gm/dl Albumin 3.9 (3.4-5.0) gm/dl Globulin 2.8 (2.5-4.0) gm/dl Albumin/Globulin Ratio 1.4 (0.9-2) Lipase 121 (73-393) U/L Urine Color Dark Yellow Urine Appearance Turbid A (Clear) Urine pH >= 9.0 H (4.5-7.5) Ur Specific [place] 1.015 (1.000-1.030) Urine Protein Negative (Negative) Urine Glucose (UA) Negative (Negative) Urine Ketones Negative (Negative) Urine Blood 3+ H (Negative) Urine Nitrite Positive A (Negative) Urine Bilirubin Negative (Negative) Urine Urobilinogen Negative (Negative) Ur Leukocyte Esterase 2+ H (Negative) Urine WBC (Auto) 10-30 H (0-5) /hpf Urine RBC (Auto) >30 H (0-4) /hpf U Hyaline Cast (Auto) 1-5 (0-5) /lpf U Epithel Cells (Auto) 20-30 H (0-5) /lpf Urine Bacteria (Auto) Negative (Negative) Imaging Data Radiologist's Impression: Radiology results as stated below per my review and the radiologist's interpretation: KUB CLINICAL HISTORY: Nephrolithiasis. FINDINGS: 2 AP supine abdominal radiographs are compared to study dated 03/13/2019 and correlated with abdominal CT dated 03/11/2019. There is a nonobstructed abdominal bowel gas pattern. A right ureteral stent is new from previous. No calcifications are identified along the course of the stent. No calcifications are clearly seen projecting over either kidney. The bony structures appear intact. IMPRESSION: 1. A right ureteral stent is new from previous. No calcifications are identified along the course of the stent. 2. No calcifications are seen projecting over either kidney. Electronically signed by: Donte Desai M.D. 03/18/2019 6:05 PM Blood Pressure Blood Pressure Findings: Elevated blood pressure Blood Pressure Disposition: further management by hospitalist FLORIDALMA Saavedra I did evaluate the patient as noted above. The patient is presenting with right-sided flank pain rating to his testicles. He just had a 6 mm kidney stone removed from the right side and a stent placed. He also complains of pain with urination and is currently on Omnicef. IV access was established. The patient was placed on a continuous manager cardiac cath. I initially treated patient with Dilaudid 0.5 mg IV. He is also given normal saline IV. He had continued pain and was given Toradol IV. This did not alleviate his symptoms and so he was given Dilaudid 1 mg IV. He states that previously he was on Dilaudid for 3 years. He likely has a significant tolerance to this medication. I did order and personally reviewed the images of the patient's KUB x-ray as described above. His stent is in place. No calcifications are noted consistent with ureteral stones. I did order a urine analysis. He does have evidence of an infection. I did order and review the patient's blood work as noted in the electronic medical record. His white blood cell count is 10.3. Renal function is normal. Electrolytes are unremarkable. He is not anemic. I did discuss the test results with the patient. He had persistent pain and was given Dilaudid 0.5 mg IV. I did discuss the case with Dr. Nieves of urology who agreed with my plan for hospitalization for IV antibiotics and pain control. I did discuss the case with the hospitalist and case management social worker. I did treat the patient with IV Cipro. Impression & Plan Intractable abdominal pain, Acute UTI, Failure of outpatient treatment Discharge Plan Visit Data *Final* Discharge Date/Time: 03/18/19 22:18 Chief Complaint: Kidney Stone Stated Complaint: KIDNEY STONE ISSUE ED Provider: Zane Cooper Discharge Problem: Intractable abdominal pain, Acute UTI, Failure of outpatient treatment Patient Disposition: Admitted As Inpatient Discharge Instructions Interventions: ED Discharge Assessment Last Done: 03/18/19 22:18 The scribe's documentation has been prepared under my direction and personally reviewed by me in its entirety. I confirm that the note above accurately reflects all work, treatment, procedures, and medical decision making performed by me.
[2019-03-18] MEDS: HYDROmorphone INJ 1 MG/ML SYRINGE IV PRN (23:47)
[2019-03-18] MEDS: PHENAZOPYRIDINE HCL 200 MG TAB PO PRN (23:55)
[2019-03-19] MEDS: SODIUM CHLORIDE 0.9% 1000ML 1,000 ML IV SCH ×4 (00:43→22:02)
[2019-03-19] MEDS: HYDROmorphone INJ 1 MG/ML SYRINGE IV PRN ×8 (03:26→22:01)
[2019-03-19 04:58] LABS: Basophils # (auto) 0.01 K/uL (0-0.2); Basophils % (auto) 0.1 %; Eosinophils # (auto) 0.12 K/uL (0-0.5); Eosinophils % (auto) 1.7 %; Hematocrit (blood only) 44.1 % (42-52); Immature Granulocytes # (auto) 0.01 K/uL (0.00-0.02); Immature Granulocytes % (auto) 0.1 %; Lymphocytes # (auto) 1.44 K/uL (1.2-3.4); Lymphocytes % (auto) 20.7 %; Mean Corpuscular Hemoglobin 29.1 pg (25-34); Mean Corpuscular Volume 85.5 fL (80-100); Mean Platelet Volume 11.5 fL (7.4-10.4); Monocytes # (auto) 0.83 K/uL (0.11-0.59); Monocytes % (auto) 11.9 %; Neutrophils # (auto) 4.56 K/uL (1.4-6.5); Neutrophils % (auto) 65.5 %; Platelet Count 161 K/uL (130-400); RDW Coefficient of Variation 14.4 % (11.5-14.5); RDW Standard Deviation 45.2 fL (36.4-46.3); Red Blood Count 5.16 M/uL (4.7-6.1); White Blood Count 6.97 K/uL (4.8-10.8)
[2019-03-19 05:35] LABS: BUN Creatinine Ratio 16.4 (10-20); Calcium 8.4 mg/dl (8.5-10.1); Creatinine Clr Calc Pharmacy 171.3 ml/min; Est GFR (African American) 129.6; Est GFR (Non-African American) 111.9; Potassium 3.7 mmol/L (3.5-5.1)
--- NOTE | 2019-03-19 06:30 | Ultrasound Report ---
US renal/blad retro comp HISTORY: Infection UTI s/p R stent placement COMPARISON: None. FINDINGS: Right kidney: Maximum dimension 11.8 cm. No evidence for hydronephrosis . Right ureteral stent in goo d position Left kidney: Maximum dimension 11 cm. No evidence for hydronephrosis. Normal corticomedullary differ entiation and cortical thickness. Bladder: No bladder wall thickening. The bilateral ureteral jets were identified. IMPRESSION: Normal renal ultrasound. Right ureteral stent in good position. The above report was generated using voice recognition software. It may contain grammatical, syntax or spelling errors. Electronically signed by: Kedar Kaplan M.D. 03/19/2019 6:29 AM
[2019-03-19] MEDS: CIPROFLOXACIN 500 MG TAB PO SCH ×2 (07:30→21:54)
[2019-03-19] MEDS: METOPROLOL SUCC 50MG EXT REL TAB PO SCH ×2 (07:31→21:54)
[2019-03-19] MEDS: TAMSULOSIN HCL 0.4 MG CAP PO SCH (07:31)
[2019-03-19] MEDS: KETOROLAC TROMETHAMINE 15 MG/ML VIAL IV PRN (07:32)
--- NOTE | 2019-03-19 08:09 | Urology Consultation ---
Date of Consultation March 19, 2019 Assessment & Plan (1) Intractable abdominal pain: (2) Acute UTI: 39yo M s/p right URS/LL with stent placement, readmitted with intractable pain, suspected UTI. Stent in good position, no residual stone fragments on KUB. no indication for removal at this time. We discussed likelihood of worsening discomfort with premature removal. Agreeable to maintain until scheduled followup/removal on 03/[address] Hopper. UA nitrite positive, awaiting UC&S. Abx covered to ciprofloxacin by primary team, agreeable to this. Recommend continue abx based upon sensitivities until stent removal, ~10 days. Okay to provide diet from perspective. Will add oxybutynin BID scheduled, discontinue for slowing urinary stream retention. Side effects reviewed with patient. Will add B&Os PRN for acute bladder spasms while inpatient. No indication for acute surgical intervention at this time. Thank you for allowing me to participate in the care of your patient. you for allowing us to participate in the acute care of Mr. Tong. Please reconsult us with additional questions, concerns or changes in patient status. History of Present Illness Reason for Consultation: intractable pain s/p URS with stent placement Requesting Physician: Dr. Cool Attending Physician: Fay Cool, History of Present Illness 39yo M s/p Right sided URS/LL with stent placement on 03/[address] Hopper. Admitted through [facility] for intractable pain, with associated diaphoresis, n/v. States he was doing well post operatively, then pain worsened slowly. Unable to work yesterday. Pain waxes and wanes, radiates from right flank to testicles. Some dysuria, hematuria. Reports bladder spasms which wake him up at night. Able to get a few hours of sleep once admitted and pain controlled. Appears comfortable today. VSS, afebrile Renal US and KUB reviewed - stent in good position, no residual stones. Cr WNL. UA nitrite positive. Discharged home on omnicef per previous coverage, compliant with regimen. Completed 1-2 days ago. Allergies Allergy/AdvReac Type Severity Reaction Status Date / Time adhesive Allergy Unknown SKIN Verified 03/18/19 15:58 IRRITATION WITH BANDAIDS metoclopramide AdvReac Mild anxiety Verified 03/18/19 15:58 Home Medications Home Medications Medication Instructions Recorded Confirmed Type metoprolol succinate ER 100 mg 100 mg PO BID #60 tab 01/21/19 03/18/19 History tablet,extended release 24 hr baclofen 10 mg PO TID PRN #10 tab MDD 3 03/16/19 03/18/19 Rx tablets tamsulosin [Flomax] 0.4 mg PO DAILY #30 cap 03/16/19 03/18/19 Rx Patient History Medical History Migraine (Chronic) Hypertension (Chronic) Bilateral kidney stones (Acute) Surgical History H/O hand surgery H/O knee surgery H/O shoulder surgery History of mandibular surgery S/P tonsillectomy and adenoidectomy Family History Mother Hypertension Grandfather Pancreatic cancer Other Diabetes Social History Preferred Language: [place] Communication Ability: Effective Recovery Auditor Required: No Beliefs That Will Affect Care: None marital status: Current Living Situation: Spouse and Family Other Information That Helps Us Care for You: No Feels Safe at Home: Yes Safety Concerns: Feels Safe At This Time Smoking Status: Never smoker Do You Dip or Chew Tobacco: No ; Second Hand Exposure: No ; Tobacco Cessation Education Requested by Patient: No Hx Alcohol Use: Yes Alcohol type: beer Hx Substance Use: No Review of Systems Review of Systems: All systems reviewed & are unremarkable except as noted in HPI & below Physical Exam Constitutional: no acute distress and not ill appearing Eyes: no nystagmus ENMT: Ears: no hearing impairment Neck: trachea midline Respiratory: no respiratory distress and no cough Cardiovascular: Vessels: no JVD Chest (Breasts): Chest: normal inspection of chest Gastrointestinal (Abdomen): Inspection/Auscultation: abdomen not distended and no abdominal edema Percussion/Palpation: abdomen soft; abdomen nontender Musculoskeletal: Head/Neck/Chest: normocephalic and head atraumatic Skin: no rashes, warm and dry Neurologic: awake; not confused and not obtunded Psychiatric: Orientation: alert and oriented x 3 Eye Contact: good eye contact Affect: no depressed affect Genitourinary: + CVA tenderness (right, stent pain) Lymphatic: no lymphadenopathy and no lymphedema Results & Data Vital Signs (Past 12 Hours) Vital Signs Temp Pulse Pulse Resp BP BP Pulse Ox 03/19/19 07:25 36.5 C 76 131/87 97 03/18/19 23:19 36.7 C 84 18 155/100 H 97 03/18/19 22:18 80 17 145/90 H 99 PG Care Time/CCT Total # of Minutes Spent Total Time Spent with Patient: Total time spent is greater than 50% in coordination of care (as documented) at patient's floor/unit and/or counseling patient:
[2019-03-19] MEDS ORDERED: BELLADONNA/OPIUM SUPP 60 MG SUPP PR PRN (08:26)
[2019-03-19] MEDS ORDERED: ONDANSETRON INJ 2 MG/ML 2 ML VIAL IV PRN (09:35)
[2019-03-19] MEDS: OXYBUTYNIN CHLORIDE 5 MG TAB PO SCH ×2 (09:52→21:54)
[2019-03-19] MEDS: PROMETHAZINE HCL 25 MG in SODIUM CHLORIDE 0.9% 50 ML IV PRN (17:07)
--- NOTE | 2019-03-19 17:34 | Hospitalist Progress Note ---
Date of Service March 19, 2019 Assessment & Plan (1) Intractable abdominal pain: Most likely due to acute urinary infection. Appreciate urology recommendations. UA positive for nitrates, urine cultures pending.Continue ciprofloxacin until urine cultures sensitivity is available for 10 days. Stent in good position, no residual stone fragments on KUB. no indication for removal at this time. We discussed likelihood of worsening discomfort with premature removal. Follow-up with Dr. Hopper at the scheduled time for removal of the stent on 03/27/2019 . Continue oxybutynin BID scheduled, discontinue for slowing urinary stream retention. Adverse effects reviewed with urology with patient. Continue pain management until acute urinary infection is ongoing and trend down and patient clinically improves. Present on Admission?: Yes (2) Acute UTI: As above Present on Admission?: Yes (3) Failure of outpatient treatment: Patient failed outpatient treatment with Omnicef 300 mg twice daily for 3 days. Patient was also on ciprofloxacin which was stopped by her urology previously. Present on Admission?: Yes (4) Ureterolithiasis: As above (5) Renal colic on right side: Pain management (6) History of endocarditis: Patient had endocarditis in the past. No issues at this time. Present on Admission?: Yes (7) Hypertension: Blood pressure is usually stable unless patient is in pain. Better pain control. Continue home dose of metoprolol succinate 100 mg tablet every 24 hours. Present on Admission?: Yes Subjective Patient seen and examined at the bedside. Reports that his right frontal flank pain is tolerated better with pain management. Patient denies fever, chills, chest pain, shortness of breath, frequency, urgency. Patient complains of dysuria. Review of Systems Review of Systems: All systems reviewed & are unremarkable except as noted in HPI & below Physical Exam Constitutional: WD/WN, vitals as above well developed Eyes: PERRL, conjunctivae normal, anicteric sclerae ENMT: external ear and nose normal, oropharynx normal Neck: trachea midline, no thyromegaly Respiratory: normal respiratory effort, lungs clear to auscultation Cardiovascular: RRR, no murmur, no edema Gastrointestinal (Abdomen): normal bowel sounds, soft, nontender, no hepatosplenomegaly Musculoskeletal: no cyanosis or clubbing, extremities motor strength 5/5 Skin: no rashes, warm and dry Neurologic: patellar DTR's 2+ bilat, sensation intact Psychiatric: A+Ox3, euthymic affect Lymphatic: no cervical or axillary lymphadenopathy Results & Data Vital Signs (Past 12 Hours) Vital Signs Temp Pulse Resp BP Pulse Ox 03/19/19 14:53 36.6 C 76 16 156/94 H 94 03/19/19 07:25 36.5 C 76 18 131/87 97 PG Care Time/CCT Total # of Minutes Spent Total Time Spent with Patient: Total time spent is greater than 50% in coordination of care (as documented) at patient's floor/unit and/or counseling patient:
[2019-03-20] MEDS: HYDROmorphone INJ 1 MG/ML SYRINGE IV PRN ×5 (01:51→14:20)
[2019-03-20 05:45] LABS: Basophils # (auto) 0.02 K/uL (0-0.2); Basophils % (auto) 0.3 %; Eosinophils # (auto) 0.14 K/uL (0-0.5); Hematocrit (blood only) 45.4 % (42-52); Hemoglobin 15.5 g/dL (14.0-18.0); Immature Granulocytes # (auto) 0.02 K/uL (0.00-0.02); Immature Granulocytes % (auto) 0.3 %; Lymphocytes # (auto) 1.54 K/uL (1.2-3.4); Mean Corpuscular Hemoglobin 29.1 pg (25-34); Mean Corpuscular Hgb Conc 34.1 g/dL (32-36); Mean Corpuscular Volume 85.3 fL (80-100); Mean Platelet Volume 11.8 fL (7.4-10.4); Monocytes # (auto) 0.84 K/uL (0.11-0.59); Neutrophils # (auto) 4.45 K/uL (1.4-6.5); Neutrophils % (auto) 63.4 %; Platelet Count 182 K/uL (130-400); RDW Coefficient of Variation 14.5 % (11.5-14.5); RDW Standard Deviation 45.4 fL (36.4-46.3); Red Blood Count 5.32 M/uL (4.7-6.1); White Blood Count 7.01 K/uL (4.8-10.8)
[2019-03-20] MEDS: SODIUM CHLORIDE 0.9% 1000ML 1,000 ML IV SCH (06:09)
[2019-03-20] MEDS: KETOROLAC TROMETHAMINE 15 MG/ML VIAL IV PRN (06:09)
[2019-03-20 06:15] LABS: Albumin Level 3.4 gm/dl (3.4-5.0); BUN Creatinine Ratio 16.7 (10-20); Calcium 8.4 mg/dl (8.5-10.1); Creatinine Clr Calc Pharmacy 167.3 ml/min; Est GFR (African American) 128.4; Est GFR (Non-African American) 110.8; Potassium 4.1 mmol/L (3.5-5.1)
[2019-03-20 06:18] LABS: Albumin Globulin Ratio 1.3 (0.9-2); Bilirubin,Total 0.4 mg/dl (0.2-1); Globulin 2.7 gm/dl (2.5-4.0); Total Protein 6.1 gm/dl (6.4-8.2)
[2019-03-20] MEDS: OXYBUTYNIN CHLORIDE 5 MG TAB PO SCH (09:00)
[2019-03-20] MEDS: CIPROFLOXACIN 500 MG TAB PO SCH (09:00)
[2019-03-20] MEDS: TAMSULOSIN HCL 0.4 MG CAP PO SCH (09:00)
[2019-03-20] MEDS: METOPROLOL SUCC 50MG EXT REL TAB PO SCH (09:02)
[2019-03-20] MEDS: PROMETHAZINE HCL 25 MG in SODIUM CHLORIDE 0.9% 50 ML IV PRN (09:03)
[2019-03-20] MEDS: PHENAZOPYRIDINE HCL 200 MG TAB PO PRN (12:50)
--- NOTE | 2019-03-20 13:07 | Discharge Summary ---
Date of Service March 20, 2019 Admission HPI Per Admitting Provider Ace Tong was recently admitted from 03/13/2019 - 03/16/2019 for nephrolithiasis: cystoscopy with basket stone extraction (4mm stone), laser lithotripsy with right stent. He feels that his pain was not well controlled with the medications given on discharge. He noticed that his urine was dark in color but this might have been secondary to being on phenazopyridine. His pain was as described below. He has a history of previous obstruction that required bilateral stent stents in 2016. There was no clear cause of the stones in prior workup. 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 History of Neurofibromatosis that was diagnosed at 1 day old. History of headaches previously treated with Dilaudid 1 year ago, currently not on any medication. Family Hx.: no family history of kidney stones Social Hx.: Lives at home with and 3 MO daughter ETOH: approx. 1 drink per week Tobacco: never Rec drugs: none Sexual Hx.: hetero one partner Exercise: decreased frequency over the last year Admission Exam Per Admitting Provider Constitutional: WD/WN, vitals as above nl hygiene, nl affect, appears own age, no acute distress Eyes: + anicteric sclerae and EOM intact bilaterally pupils constricted, round and reactive to light ENMT: external ear and nose normal, oropharynx normal Neck: normal visual inspection and trachea midline Thyroid: no thyromegaly Respiratory: normal respiratory effort, lungs clear to auscultation no cou gh Auscultation: no rales, no rhonchi, no wheezes and no pleural rub Cardiovascular: RRR, no murmur, no edema Heart Sounds: normal S1 and normal S2 Vessels: radial pulses present Extremities: normal capillary refill; no calf tenderness, no pedal edema and no edema Chest (Breasts): normal inspection/palpation of breasts Gastrointestinal (Abdomen): Inspection/Auscultation: abdomen normal to inspection; abdomen not distended Percussion/Palpation: + abdomen tender (tender in the right lower abdomen); no guarding and abdomen not rigid Musculoskeletal: no cyanosis or clubbing, extremities motor strength 5/5 Skin: no rashes, warm and dry Neurologic: CN's II-XI intact bilaterally Speech / Cognition: normal speech Cranial Nerves: EOM intact bilaterally Psychiatric: A+Ox3, euthymic affect Genitourinary: + CVA tenderness (right sided) Lymphatic: no cervical or axillary lymphadenopathy Principal Diagnosis 1. Intractable pain, secondary to infection versus ureteral stent #2 urinary tract infection #3 kidney stones #4 history of endocarditis Discharge Exam GENERAL: Non-toxic in appearance. INTEGUMENTARY: Warm, dry, and Sandwich. HEAD: Normocephalic. EYES: without scleral icterus or trauma. ENT/OROPHARYNX: clear and moist. LYMPHADENOPATHY/NECK: Is supple without lymphadenopathy or meningismus. RESPIRATORY: Lungs clear and equal. CARDIOVASCULAR: Regular rate and rhythm. GI/ABDOMEN: Soft and nontender. No organomegaly or pulsatile mass. No rebound or guarding. Normal bowel sounds. EXTREMITIES: Warm and well perfused. BACK: No CVA tenderness. NEUROLOGICAL: Intact without focal deficits. PSYCHIATRIC: normal affect. MUSCULOSKELETAL: Normally developed with good muscle tone. Discharge Data Allergies Allergy/AdvReac Type Severity Reaction Status Date / Time adhesive Allergy Unknown SKIN Verified 03/18/19 15:58 IRRITATION WITH BANDAIDS metoclopramide AdvReac Mild anxiety Verified 03/18/19 15:58 Consultations 03/18/19 20:16 ED Decision to Admit Stat 03/18/19 22:25 Consult Urology Routine Ordered Studies 03/18/19 22:25 US renal/blad retro comp Urgent Hospital Course (1) Intractable abdominal pain: On presentation, the patient was thought to have a urinary tract infection. He previously been discharged with a second milligrams twice daily. This is changed over to Cipro 500 mg twice daily p.o. His pain was treated with a combination of Toradol Dilaudid, which patient felt was effective. The repeat urine culture was negative. Patient seen by urology. Suggestion was to continue the cefoxitin and continue pain management. They did state that they would see the patient on 03/27 in the office for eventual stent removal. At the time of discharge, I did discuss pain management with the patient. At this point we will discharge patient with oxycodone 5 mg, 60 tabs to use 12 tabs every 4 hours as needed. He is also on Pyridium which should be continued. He was started on oxybutynin by the urologist which will be continued as well. He was told to strain all his urine. He will follow-up with urologist as previously instructed. (2) Acute UTI: As above (3) Ureterolithiasis: As above Total Time Total Time Spent Total Time Spent (In Minutes): Discharge was prepared in excess of 30 minutes Discharge Plan Discharge Items Patient Disposition: Home - Self-Care Reason For Visit: UTI INTRACTABLE PAIN 2/2 KIDNEY STONE Discharge Diagnosis: 1. Ureterolithiasis, status post stent 2. Possible urinary tract infection from stent 3. Intractable pain 4. History of endocarditis Condition on Discharge: Good Activity: Resume your previous activity Lifting: Gradually increase as tolerated Non-emergency contact: Primary Care Provider Call non-emergency contact if: your pain is worsening and you have a fever Follow-up/Referrals: Randy Kwan MD [Primary Care Provider] - 03/26/19 3:45 pm (Please, follow up with Dr. Randy Kwan on MondayMarch 26 at 3:45 pm. *If you need to change this appointment, call his office at [phone].) Robetro Hopper MD [Physician] - 03/27/19 Diet: Regular Pending Studies at Discharge: No Stand-Alone Forms: My [facility], Opioid Pain Management, Smoking Cessation Medications and DC Order Prescriptions: New phenazopyridine [Pyridium] 200 mg Tablet 200 mg PO TID PRN (Reason: pain) 10 Days Qty: 30 RF: 0 ciprofloxacin HCl 500 mg Tablet 500 mg PO BID 10 Days Qty: 20 RF: 0 oxybutynin chloride 5 mg Tablet 5 mg PO BID 10 Days Qty: 30 RF: 0 oxycodone 5 mg capsule 5 mg PO Q6H PRN (Reason: pain) Qty: 60 RF: 0 Continued metoprolol succinate 100 mg tablet extended release 24 hr 100 mg PO BID Qty: 60 RF: 0 tamsulosin [Flomax] 0.4 mg capsule 0.4 mg PO DAILY Qty: 30 RF: 0 baclofen 10 mg tablet 10 mg PO TID MDD 3 tablets PRN (Reason: pain and spasam) Qty: 10 RF: 0 Discharge Orders: Discharge Order (Routine); Ordered 03/20/19 Ordered By: Emmanuel Bryson Admission Data Admit Date/Time: 03/18/19 21:32 Attending Provider: Emmanuel Bryson Admit Provider: Moe Crooks Primary Care Provider: Randy Kwan Other Providers: Fay Cool Christophe T.
== END 2019-03-20 16:55 | disposition home or self-care (01) ==
LOC: ED 15:27 → 3E 15:27 → SUATTDRO 21:32 → 3E 22:18

== ENCOUNTER 2020-03-23 17:45 | Observation (INO) ==
[2020-03-23] MEDS ORDERED: ONDANSETRON INJ 2 MG/ML 2 ML VIAL IV STA (19:32)
[2020-03-23] MEDS ORDERED: HYDROmorphone INJ 1 MG/ML SYRINGE IV STA ×2 (19:32→20:16)
--- NOTE | 2020-03-23 19:42 | Emergency Department Note ---
History of Present Illness General Chief complaint: Back Injury/Pain Stated complaint: BACK PAIN, BACK SURGERY 03/18 Time Seen by Provider: 03/23/20 19:27 History of Present Illness Maximum Pain Intensity: 10 This is a 40-year-old male that presents to the emergency department via private vehicle with complaints of "back pain, back surgery 03/18". The patient notes that he had a spinal surgery, specifically spinal fusion performed this past Monday, 03/18. Patient notes that after surgery there was difficulty transferring from hospital pain medication to at home pain medication. The patient denies any new trauma or injury. He does note pain in the inferior back that radiates around to the flank/pelvis region. This also radiates down the legs. He does note some numbness/tingling in the legs. He believes that they are weak. Overall discomfort 03/07. He denies any fevers, chills, chest pain or shortness of breath. He does note a history of open heart surgery for repair of heart valves secondary to endocarditis. Home Medications Home Medications Medication Instructions Recorded Confirmed Type metoprolol succinate 100 mg 100 mg PO BID #60 tab 06/19/19 03/23/20 Rx tablet,extended release 24 hr betamethasone dipropionate 0.05 % 1 appln TOP BID #15 gm 10/16/19 03/23/20 Rx topical ointment mupirocin 2 % topical ointment 1 appln TOP BID #22 gm 10/16/19 03/23/20 Rx oxycodone 5 mg PO Q4 PRN #30 tab 03/19/20 03/23/20 Rx tramadol 50 mg PO Q6H PRN #30 tab 03/19/20 03/23/20 Rx gabapentin 400 mg PO TID #90 cap 03/21/20 03/23/20 Rx oxycodone [OxyContin] 10 mg PO BID #28 tab 03/21/20 03/23/20 Rx lidocaine 5 % topical patch 1 patch TRANSDERMAL QAM PRN ea 03/23/20 03/23/20 History Allergies Allergy/AdvReac Type Severity Reaction Status Date / Time adhesive Allergy Unknown SKIN Verified 03/23/20 11:27 IRRITATION WITH BANDAIDS topiramate [From Topamax] AdvReac Intermediate kidney Unverified 03/23/20 11:27 stones metoclopramide AdvReac Mild anxiety Verified 03/23/20 11:27 Past Med/Surg History Medical History Abdominal pain Abscess of left upper extremity Acid reflux Acute UTI Bilateral kidney stones Bilateral lower extremity edema BPH (benign prostatic hyperplasia) Chest pain Dehydration Endocarditis Failure of outpatient treatment Febrile illness Fever Headache, migraine, intractable Hypertension Intractable abdominal pain Intractable pain Leg pain Leg swelling Leukocytosis Migraine CLUSTER TYPE Obstructive uropathy Positive blood culture SIRS (systemic inflammatory response syndrome) Surgical History H/O hand surgery H/O knee surgery H/O mitral valve repair H/O repair of right rotator cuff H/O shoulder surgery History of cardiac cath DIAGNOSTIC-2016 NO STENTS-[facility]AS History of cystoscopy WITH STENT PLACEMENT X 2 History of heart valve replacement REPAIR MITRAL AND AORTIC VALVE [facility] 2016 History of kidney surgery History of left cataract surgery History of mandibular surgery ORIF S/P BROKEN JAW A TEEN-FULL ROM PER PT History of tonsillectomy and adenoidectomy S/P tonsillectomy and adenoidectomy Family History Mother Hypertension Grandfather Pancreatic cancer Aunt Diabetes Grandmother (Maternal) Diabetes Family/Other Diabetes Grandmother (Paternal) Diabetes Grandfather (Maternal) Family hx of colon cancer Social History Smoking Status: Never smoker Second Hand Exposure: No; Hx Alcohol Use: Yes Alcohol type: beer Hx Substance Use: No Preferred Language: Citizen Of [place] Communication 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: 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 Beliefs That Will Affect Care: None marital status: Current Living Situation: Family Current Living Situation Comment: and daughter Other Information That Helps Us Care for You: Yes Feels Safe at Home: Yes Safety Concerns: Feels Safe At This Time Assistive Devices: Oxygen - Continuous Review of Systems A total of 10 systems reviewed and were otherwise negative Physical Exam Vital Signs Vital Signs - 24 hr 03/23/20 19:04 03/23/20 20:25 03/23/20 22:21 Temperature 37.1 C Temperature Source Oral Pulse Rate 145 H 132 H Pulse Rate [Finger] 134 H 127 H Respiratory Rate 20 19 22 Respiratory Effort / Characteristics Non-Labored Spontaneous Respiratory Depth Normal Blood Pressure 125/68 Blood Pressure [Right Arm] 135/91 142/66 H Blood Pressure Mean 87 Blood Pressure Mean [Right Arm] 105 91 Blood Pressure Position [Right Arm] Lying Pulse Oximetry 95 98 97 Oxygen Delivery Method Room Air Room Air Room Air Oxygen Flow Rate Sepsis New/Unexplained Change in Mental Status N/A Sepsis Action Taken by Nursing No Action Required 03/24/20 00:07 Temperature Temperature Source Pulse Rate Pulse Rate [Finger] 124 H Respiratory Rate 21 Respiratory Effort / Characteristics Non-Labored Respiratory Depth Normal Blood Pressure Blood Pressure [Right Arm] 105/61 Blood Pressure Mean Blood Pressure Mean [Right Arm] 75 Blood Pressure Position [Right Arm] Pulse Oximetry 98 Oxygen Delivery Method Nasal Cannula Oxygen Flow Rate 2 Sepsis New/Unexplained Change in Mental Status Sepsis Action Taken by Nursing VITAL SIGNS - Vital signs and nursing notes were reviewed. Tachycardic, otherwise stable. GENERAL -40-year-old male appearing his stated age who is in no acute distress. Communicates well with provider and answers questions appropriately. SKIN - Without rashes. No meningeal or petechial rash. There is a large amount of bruising, dark purplish black in color overlying the patient's posterior lumbar region that seems to wrap around bilaterally to the left and right flank. There is also a bandage overlying the surgical site. No active bleeding. No evidence of wound dehiscence. HEAD - NC/AT. EYES - PERRL with EOMI bilaterally. Sclera anicteric. EARS - No deformities of external structures noted on gross examination bilaterally. NOSE - Midline and without cyanosis. No epistaxis or purulent drainage noted. MOUTH/OROPHARYNX - Without perioral cyanosis. NECK - Neck with FROM. No nuchal rigidity. LUNGS - Chest wall symmetric without accessory muscle use, intercostals retractions, or central cyanosis. Normal vesicular breath sounds CTA B/L. No wheezes, rales, or rhonchi appreciated. CARDIAC -tachycardic with S1/S2. No murmur, rubs, or gallops appreciated. All Musculoskeletal: There is tenderness to palpation overlying the lumbar paraspinous musculature. ABDOMEN - Abdominal contour normal without pulsations or visible masses. BS normoactive all four quadrants. No tenderness, palpable masses, hepatosplenom egaly, or ascites noted. EXTREMITIES - No clubbing or peripheral cyanosis. No pretibial edema present. +5/5 strength noted in UE/LE bilaterally. NEUROLOGIC - Cranial nerves II through XII grossly intact. Sensory intact to light touch throughout. PSYCH - A&O, and cooperates fully with examiner. Pt is very pleasant and interacts well with examiner. Course Administered Medications Acetaminophen (Acetaminophen 325 Mg Tab) 650 mg PO Q4H PRN PRN Reason: pain/fever Stop: 04/23/20 02:09 Last Admin: 03/24/20 02:47 Dose: 650 mg Documented by: [id number] Oxycodone HCl (Oxycodone Hcl Ir 5 Mg Tab (Immediate Release)) 5 mg PO Q4H PRN PRN Reason: pain, severe Stop: 04/07/20 02:24 Last Admin: 03/24/20 02:48 Dose: 5 mg Documented by: [id number] Discontinued Medications Hydromorphone HCl (Hydromorphone Inj 1 Mg/Ml Syringe) 1 mg IV NOW STA Stop: 03/23/20 19:33 Last Admin: 03/23/20 19:43 Dose: 1 mg Documented by: [id number] Hydromorphone HCl (Hydromorphone Inj 1 Mg/Ml Syringe) 1 mg IV NOW STA Stop: 03/23/20 20:17 Last Admin: 03/23/20 20:25 Dose: 1 mg Documented by: [id number] Hydromorphone HCl (Hydromorphone Inj 1 Mg/Ml Syringe) 1 mg IV Q30M PRN PRN Reason: Pain Stop: 04/06/20 21:21 Last Admin: 03/24/20 00:05 Dose: 1 mg Documented by: [id number] Admin: 03/23/20 22:26 Dose: 1 mg Documented by: [id number] Admin: 03/23/20 21:42 Dose: 1 mg Documented by: [id number] Hydromorphone HCl (Hydromorphone Inj 0.5 Mg/0.5 Ml Syr) 0.5 mg IV NOW STA Stop: 03/24/20 01:44 Last Admin: 03/24/20 01:54 Dose: 0.5 mg Documented by: [id number] Sodium Chloride (Nss 1000ml) 1,000 mls @ 999 mls/hr IV .Q1H1M WALDEMAR Stop: 03/23/20 21:00 Last Infusion: 03/23/20 21:19 Dose: 0 mls/hr Documented by: [id number] Admin: 03/23/20 19:49 Dose: 999 mls/hr Documented by: [id number] Ioversol (Optiray 320 125ml) 93 ml IV ONCE ONE Stop: 03/23/20 21:53 Last Admin: 03/23/20 21:53 Dose: 1 ml Documented by: [id number] Ondansetron HCl (Ondansetron Inj 2 Mg/Ml 2 Ml Vial) 4 mg IV NOW STA Stop: 03/23/20 19:33 Last Admin: 03/23/20 19:42 Dose: 4 mg Documented by: [id number] Medical Decision Making Laboratory Data Result diagrams: 03/23/20 20:40 03/23/20 20:40 Lab Results 03/23/20 03/23/20 03/23/20 Range/Units 20:40 20:40 20:40 WBC 20.55 H (4.8-10.8) K/uL RBC 3.63 L (4.7-6.1) M/uL Hgb 11.0 L (14.0-18.0) g/dL Hct 32.7 L (42-52) % MCV 90.1 (80-100) fL MCH 30.3 (25-34) pg MCHC 33.6 (32-36) g/dL RDW Std Deviation 48.5 H (36.4-46.3) fL RDW Coeff of Dax 14.8 H (11.5-14.5) % Plt Count 228 (130-400) K/uL MPV 10.3 (7.4-10.4) fL Neutrophils % (Manual) 75.8 % Lymphocytes % (Manual) 12.1 % Monocytes % (Manual) 8.6 % Eosinophils % (Manual) 1.7 % Basophils % (Manual) 0.9 % Metamyelocytes % (Man) 0.9 % Neutrophils # (Manual) 15.58 H (1.4-6.5) K/uL Total Absolute Neuts 15.58 H (1.4-6.5) K/uL Lymphocytes # (Manual) 2.49 (1.2-3.4) K/uL Total Abs Lymphocytes 2.49 (1.2-3.4) K/uL Monocytes # (Manual) 1.77 H (0.11-0.59) K/uL Eosinophils # (Manual) 0.35 (0-0.5) K/uL Basophils # (Manual) 0.18 (0-0.2) K/uL Metamyelocytes # (Man) 0.18 H (0-0) K/uL ESR 11 (0-14) mm/hr PT (9.0-12.0) Seconds INR (0.9-1.1) Sodium 141 (136-145) mmol/L Potassium 3.3 L (3.5-5.1) mmol/L Chloride 107 (98-107) mmol/L Carbon Dioxide 29 (21-32) mmol/L Anion Gap 5.0 (3-11) BUN 20 H (7-18) mg/dl Creatinine 0.86 (0.6-1.4) mg/dl Est Cr Clr Drug Dosing 161.9 ml/min Est GFR ( Amer) 127.5 Est GFR (Non-Af Amer) 110.0 BUN/Creatinine Ratio 22.8 H (10-20) Glucose 62 L (70-99) mg/dl Lactate (0.4-2.0) mmol/L Calcium 7.6 L (8.5-10.1) mg/dl Magnesium 1.9 (1.8-2.4) mg/dl Total Bilirubin 0.8 (0.2-1) mg/dl AST 13 L (15-37) U/L ALT 22 (12-78) U/L Alkaline Phosphatase 42 L (45-117) U/L C-Reactive Protein 6.81 H (0-0.29) mg/dl Total Protein 4.7 L (6.4-8.2) gm/dl Albumin 2.2 L (3.4-5.0) gm/dl Globulin 2.5 (2.5-4.0) gm/dl Albumin/Globulin Ratio 0.9 (0.9-2) Urine Color Urine Appearance (Clear) Urine pH (4.5-7.5) Ur Specific Leslie (1.000-1.030) Urine Protein (Negative) Urine Glucose (UA) (Negative) Urine Ketones (Negative) Urine Blood (Negative) Urine Nitrite (Negative) Urine Bilirubin (Negative) Urine Urobilinogen (Negative) Ur Leukocyte Esterase (Negative) 10/26/20 10/26/20 10/26/20 Range/Units 20:40 20:40 22:30 WBC (4.8-10.8) K/uL RBC (4.7-6.1) M/uL Hgb (14.0-18.0) g/dL Hct (42-52) % MCV (80-100) fL MCH (25-34) pg MCHC (32-36) g/dL RDW Std Deviation (36.4-46.3) fL RDW Coeff of Dax (11.5-14.5) % Plt Count (130-400) K/uL MPV (7.4-10.4) fL Neutrophils % (Manual) % Lymphocytes % (Manual) % Monocytes % (Manual) % Eosinophils % (Manual) % Basophils % (Manual) % Metamyelocytes % (Man) % Neutrophils # (Manual) (1.4-6.5) K/uL Total Absolute Neuts (1.4-6.5) K/uL Lymphocytes # (Manual) (1.2-3.4) K/uL Total Abs Lymphocytes (1.2-3.4) K/uL Monocytes # (Manual) (0.11-0.59) K/uL Eosinophils # (Manual) (0-0.5) K/uL Basophils # (Manual) (0-0.2) K/uL Metamyelocytes # (Man) (0-0) K/uL ESR (0-14) mm/hr PT 11.4 (9.0-12.0) Seconds INR 1.1 (0.9-1.1) Sodium (136-145) mmol/L Potassium (3.5-5.1) mmol/L Chloride (98-107) mmol/L Carbon Dioxide (21-32) mmol/L Anion Gap (3-11) BUN (7-18) mg/dl Creatinine (0.6-1.4) mg/dl Est Cr Clr Drug Dosing ml/min Est GFR ( Amer) Est GFR (Non-Af Amer) BUN/Creatinine Ratio (10-20) Glucose (70-99) mg/dl Lactate 1.6 (0.4-2.0) mmol/L Calcium (8.5-10.1) mg/dl Magnesium (1.8-2.4) mg/dl Total Bilirubin (0.2-1) mg/dl AST (15-37) U/L ALT (12-78) U/L Alkaline Phosphatase (45-117) U/L C-Reactive Protein (0-0.29) mg/dl Total Protein (6.4-8.2) gm/dl Albumin (3.4-5.0) gm/dl Globulin (2.5-4.0) gm/dl Albumin/Globulin Ratio (0.9-2) Urine Color Yellow Urine Appearance Clear (Clear) Urine pH 7.0 (4.5-7.5) Ur Specific Leslie 1.018 (1.000-1.030) Urine Protein Negative (Negative) Urine Glucose (UA) Negative (Negative) Urine Ketones Negative (Negative) Urine Blood Negative (Negative) Urine Nitrite Negative (Negative) Urine Bilirubin Negative (Negative) Urine Urobilinogen Negative (Negative) Ur Leukocyte Esterase Negative (Negative) Imaging Data Radiologist's Impression: CT ABDOMEN & PELVIS With Contrast: Liver, gallbladder, pancreas, spleen, adrenal glands, and kidneys are unremarkable. No renal or ureteral stones. No acute abnormality along the GI tract. Normal appendix. No free fluid, fluid collection, or free air. Postsurgical changes in the lumbar spine. Refer to dedicated L-spine CT dictation. Radiologist: Bolivar Bautista MD Study ready at 22:22 and initial results transmitted at 22:47 CT L SPINE: Postsurgical changes from a recent L5-S1 posterior decompression and instrumented fusion. No hardware complication. No acute fracture. Expected postsurgical subcutaneous edema, subcutaneous emphysema, and a small amount of hematoma within the posterior subcutaneous fat. The canal would be better evaluated by MRI. Unchanged moderate foraminal stenosis on the right at L4-5 and on the left at L5-S1. The right L5-S1 neural foramen has been decompressed. Radiologist: Bolivar Bautista MD Study ready at 22:22 and initial results transmitted at 22:42 MDM Narrative Patient was seen and evaluated as above in room D3. Review was performed of nursing notes and vital signs. I did review pertinent previous visits and patient history. After obtaining a thorough history and physical examination the above work up was performed. Patient presents to us today postop L-spine surgery now with pain. On my examination the patient is quite tachycardic, and appears to be rolling on the examination bed in pain. He is appearing to be mildly tearful. No neurovascular deficit on my examination. No evidence of cauda equina syndrome. He is quite tachycardic. No reported chest pain or shortness of breath. This is not felt to represent a PE. IV access was established. Labs were drawn. Given the patient's presentation with what appears to be a great deal of pain he was ordered IV pain medication. I refrained from providing IV Toradol in the event this could be emergently surgical. There is leukocytosis with mild anemia. Patient's hemoglobin has dropped 3 points in 2 days. The patient does have what appears to be an improving leukocytosis. Mild hypokalemia at 3.3. Glucose low at 62. Calcium 7.6. CRP elevated at 6.81 with ESR normal at 11. Urinalysis does not suggest infection. I discussed the presentation with the patient's spine surgeon, Dr. Melara. We agreed upon work-up here as well as CT imaging. CT scan results as above. Postoperative findings otherwise no acute process. Given the patient's presentation and requiring multiple rounds of IV pain medication it was felt that he may require further evaluation and management in the inpatient setting and he will be seen tomorrow by Dr. Melara here in the hospital. Patient happy with plan of care. While in the department, I personally reevaluated the patient several times and each time the patient was found to be in pain, but once the pain medication was provided he was found to be appearing in a much more comfortable state. Case discussed with the hospitalist. Please refer to further documentation regarding his stay. Case was discussed with the attending physician. GCS: 15 In the evaluation and treatment of this patient the following differential diagnosis entertained: Fracture, dislocation, subluxation, cauda equina syndrome, AAA, diverticulitis, appendicitis, torsion, osteomyelitis, piriformis syndrome, strain, sprain, among others. Impression & Plan Postoperative back pain, Tachycardia Discharge Plan Visit Data Chief Complaint: Back Injury/Pain Stated Complaint: BACK PAIN, BACK SURGERY 03/18 ED Provider: Kasie Valentin ED Midlevel Provider: Deshawn Han Discharge Problem: Postoperative back pain, Tachycardia Patient Disposition: Admitted As Inpatient Discharge Instructions Interventions: ED Discharge Assessment Last Done: 03/24/20 01:59
[2020-03-23] MEDS ORDERED: SODIUM CHLORIDE 0.9% 1000ML 1,000 ML IV SCH (20:00)
[2020-03-23 21:02] LABS: INR 1.1 (0.9-1.1); Prothrombin Time 11.4 Seconds (9.0-12.0)
[2020-03-23 21:10] LABS: Albumin Level 2.2 gm/dl (3.4-5.0); BUN Creatinine Ratio 22.8 (10-20); C Reactive Protein 6.81 mg/dl (0-0.29); Calcium 7.6 mg/dl (8.5-10.1); Creatinine Clr Calc Pharmacy 161.9 ml/min; Est GFR (African American) 127.5; Potassium 3.3 mmol/L (3.5-5.1)
[2020-03-23 21:11] LABS: Albumin Globulin Ratio 0.9 (0.9-2); Bilirubin,Total 0.8 mg/dl (0.2-1); Globulin 2.5 gm/dl (2.5-4.0); Total Protein 4.7 gm/dl (6.4-8.2)
[2020-03-23 21:42] LABS: Hematocrit (blood only) 32.7 % (42-52); Mean Corpuscular Hemoglobin 30.3 pg (25-34); Mean Corpuscular Hgb Conc 33.6 g/dL (32-36); Mean Corpuscular Volume 90.1 fL (80-100); Mean Platelet Volume 10.3 fL (7.4-10.4); Platelet Count 228 K/uL (130-400); RDW Coefficient of Variation 14.8 % (11.5-14.5); RDW Standard Deviation 48.5 fL (36.4-46.3); Red Blood Count 3.63 M/uL (4.7-6.1); White Blood Count 20.55 K/uL (4.8-10.8)
[2020-03-23] MEDS: HYDROmorphone INJ 1 MG/ML SYRINGE IV PRN ×2 (21:42→22:26)
[2020-03-23] MEDS ORDERED: OPTIRAY 320 125ml IV ONE (21:52)
[2020-03-23 22:11] LABS: ALC (manual) 2.49 K/uL (1.2-3.4); ANC (manual) 15.58 K/uL (1.4-6.5); Basophils # (manual) 0.18 K/uL (0-0.2); Basophils % (manual) 0.9 %; Eosinophils # (manual) 0.35 K/uL (0-0.5); Eosinophils % (manual) 1.7 %; Lymphocytes # (manual) 2.49 K/uL (1.2-3.4); Lymphocytes % (manual) 12.1 %; Metamyelocytes # (manual) 0.18 K/uL (0-0); Metamyelocytes % (manual) 0.9 %; Monocytes # (manual) 1.77 K/uL (0.11-0.59); Monocytes % (manual) 8.6 %; Neutrophils # (manual) 15.58 K/uL (1.4-6.5); Neutrophils % (manual) 75.8 %
[2020-03-23 22:46] LABS: Appearance Urine Clear (Clear); Bilirubin Urine Negative (Negative); Blood Urine Negative (Negative); Color Urine Yellow; Glucose Urine UA Negative (Negative); Ketones Urine Negative (Negative); Leukocyte Esterase Urine Negative (Negative); Nitrite Urine Negative (Negative); Protein Urine Negative (Negative); Specific Gravity Urine 1.018 (1.000-1.030); Urobilinogen Urine Negative (Negative)
[2020-03-24] MEDS: HYDROmorphone INJ 1 MG/ML SYRINGE IV PRN (00:05)
[2020-03-24] MEDS ORDERED: HYDROmorphone INJ 0.5 MG/0.5 ML SYR IV STA (01:43)
[2020-03-24] MEDS ORDERED: ONDANSETRON INJ 2 MG/ML 2 ML VIAL IV SCH (02:10)
[2020-03-24] MEDS ORDERED: DOCUSATE SODIUM 100 MG CAP PO PRN (02:10)
[2020-03-24] MEDS ORDERED: ONDANSETRON INJ 2 MG/ML 2 ML VIAL IV PRN (02:10)
[2020-03-24] MEDS ORDERED: POLYETHYLENE (MIRALAX) 17 GM PACK PO PRN (02:10)
[2020-03-24] MEDS ORDERED: LIDOCAINE 5% 1 PATCH TD PRN (02:10)
[2020-03-24 02:31] LABS: Magnesium 1.9 mg/dl (1.8-2.4)
[2020-03-24] MEDS: ACETAMINOPHEN 325 MG TAB PO PRN ×3 (02:47→14:45)
[2020-03-24] MEDS: oxyCODONE HCL IR 5 MG TAB (IMMEDIATE RELEASE) PO PRN ×5 (02:48→22:26)
[2020-03-24] MEDS: NSS + 20MEQ KCL 20 MEQ/1,000 ML BAG IV SCH ×2 (03:54→11:35)
[2020-03-24] MEDS: HYDROmorphone INJ 0.5 MG/0.5 ML SYR IV PRN ×10 (04:10→23:59)
[2020-03-24] MEDS: KETOROLAC TROMETHAMINE 15 MG/ML VIAL IV PRN ×2 (04:24→10:47)
--- NOTE | 2020-03-24 06:43 | History & Physical Report ---
Date of Service March 24, 2020 Assessment & Plan (1) Postoperative back pain: Patient with two days of worsening back pain, 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 No clinical evidence of infection or complication. -Observation to medical floor -Continue home medication regimen to include: Oxycontin ER 10mg po BID Oxy IR 10mg po q4 PRN Gabapentin 400mg po TID Tramadol 50mg po q 6 hours Lidoderm patch -Dilaudid 0.5mg IV q 2 hours as needed -Toradol PRN 15mg IV q 6hr May consider increasing Gabapentin as patient states this is helping. -Ortho consultation appreciated -Fall precautions -PT/OT Evaluation -Bowel regimen PRN Present on Admission?: Yes (2) Hypertension: Stable -Continue Metoprolol 100mg po BID -Monitor Present on Admission?: Yes Admission and Anticipated Discharge Date Admission Date: March 24, 2020 History of Present Illness Chief Complaint: pain Primary Care Provider: Randy Kwan MD Ace Tong is a 40yo C male with multiple medical problems, recent L5-S1 decompression and fusion performed by Dr. Melara on 03/17 presenting with uncontrolled pain. Reports pain began to intensify 2 days ago, minimal relief with his PO agents. Feels that his LE function has improved. Allergies Allergy/AdvReac Type Severity Reaction Status Date / Time adhesive Allergy Unknown SKIN Verified 03/23/20 11:27 IRRITATION WITH BANDAIDS topiramate [From Topamax] AdvReac Intermediate kidney Unverified 03/23/20 11:27 stones metoclopramide AdvReac Mild anxiety Verified 03/23/20 11:27 Home Medications Home Medications Medication Instructions Recorded Confirmed Type metoprolol succinate 100 mg 100 mg PO BID #60 tab 06/19/19 03/23/20 Rx tablet,extended release 24 hr betamethasone dipropionate 0.05 % 1 appln TOP BID #15 gm 10/16/19 03/23/20 Rx topical ointment mupirocin 2 % topical ointment 1 appln TOP BID #22 gm 10/16/19 03/23/20 Rx oxycodone 5 mg PO Q4 PRN #30 tab 03/19/20 03/23/20 Rx tramadol 50 mg PO Q6H PRN #30 tab 03/19/20 03/23/20 Rx gabapentin 400 mg PO TID #90 cap 03/21/20 03/23/20 Rx oxycodone [OxyContin] 10 mg PO BID #28 tab 03/21/20 03/23/20 Rx lidocaine 5 % topical patch 1 patch TRANSDERMAL QAM PRN ea 03/23/20 03/23/20 Hi story Past Med/Surg History Medical History Abdominal pain Abscess of left upper extremity Acid reflux Acute UTI Bilateral kidney stones Bilateral lower extremity edema BPH (benign prostatic hyperplasia) Chest pain Dehydration Endocarditis Failure of outpatient treatment Febrile illness Fever Headache, migraine, intractable Hypertension Intractable abdominal pain Intractable pain Leg pain Leg swelling Leukocytosis Migraine CLUSTER TYPE Obstructive uropathy Positive blood culture SIRS (systemic inflammatory response syndrome) Surgical History H/O hand surgery H/O knee surgery H/O mitral valve repair H/O repair of right rotator cuff H/O shoulder surgery History of cardiac cath DIAGNOSTIC-2016 NO STENTS-[facility] History of cystoscopy WITH STENT PLACEMENT X 2 History of heart valve replacement REPAIR MITRAL AND AORTIC VALVE [facility] 2016 History of kidney surgery History of left cataract surgery History of mandibular surgery ORIF S/P BROKEN JAW A TEEN-FULL ROM PER PT History of tonsillectomy and adenoidectomy S/P tonsillectomy and adenoidectomy Family History Mother Hypertension Grandfather Pancreatic cancer Aunt Diabetes Grandmother (Maternal) Diabetes Family/Other Diabetes Grandmother (Paternal) Diabetes Grandfather (Maternal) Family hx of colon cancer Social History Smoking Status: Never smoker Second Hand Exposure: No; Hx Alcohol Use: Yes Alcohol type: beer Hx Substance Use: No Preferred Language: Honduran Communication Ability: Effective Supervisor Pipe Joints Required: No Beliefs That Will Affect Care: None marital status: Current Living Situation: Family Current Living Situation Comment: and daughter Other Information That Helps Us Care for You: Yes Feels Safe at Home: Yes Safety Concerns: Feels Safe At This Time Assistive Devices: Oxygen - Continuous Review of Systems Review of Systems: All systems reviewed & are unremarkable except as noted in HPI & below +Sweats +diffuse pain Physical Exam Physical Exam: General: patient resting comfortably, NAD, non-toxic in appearance, AA&O x 4 Skin: warm, dry, intact, no rashes or lesions HEENT: NC/AT, PERRL, EOMI, anicteric sclera, conjunctiva without injection, external ear normal to inspection and nontender, nares patent, moist mucus membranes, dentition intact, no oropharyngeal lesions, neck supple, trachea midline, no LAD, no thyromegaly, no JVD Heart: +S1/S2, regular, no m/r/g Lungs: equal air entry bilaterally, no rales/rhonchi/wheezes Abd: +BS, soft, NT/ND, no masses/organomegaly/ascites Ext: warm, 2+ pulses in UE/LE bilaterally, no clubbing/cyanosis or edema Back: significant ecchymosis on posterior back, surgical dressings in place, no active bleeding/drainage, no hematoma Neuro: nonfocal, patient AA&O x 4, speech intact, no facial droop, moving all extremities on command with equal strength 5/5, LE reflexes intact bilaterally, brisk Results & Data Results & Data ([facility]) Vital Signs (Past 12 Hours) Vital Signs Temp Pulse Pulse Resp BP BP BP 03/24/20 05:13 36.7 C 109 H 18 107/66 03/24/20 02:00 37.3 C 117 H 18 114/71 03/24/20 01:48 127 H 22 107/71 03/24/20 00:07 124 H 21 105/61 03/23/20 22:21 127 H 22 142/66 H 03/23/20 20:25 132 H 134 H 19 135/91 03/23/20 19:04 37.1 C 145 H 20 125/68 Pulse Ox 03/24/20 05:13 99 03/24/20 02:00 97 03/24/20 01:48 97 03/24/20 00:07 98 03/23/20 22:21 97 03/23/20 20:25 98 03/23/20 19:04 95 Laboratory Results Lab Results 03/23/20 03/23/20 03/23/20 Range/Units 20:40 20:40 20:40 WBC 20.55 H (4.8-10.8) K/uL RBC 3.63 L (4.7-6.1) M/uL Hgb 11.0 L (14.0-18.0) g/dL Hct 32.7 L (42-52) % MCV 90.1 (80-100) fL MCH 30.3 (25-34) pg MCHC 33.6 (32-36) g/dL RDW Std Deviation 48.5 H (36.4-46.3) fL RDW Coeff of Dax 14.8 H (11.5-14.5) % Plt Count 228 (130-400) K/uL MPV 10.3 (7.4-10.4) fL Neutrophils % (Manual) 75.8 % Lymphocytes % (Manual) 12.1 % Monocytes % (Manual) 8.6 % Eosinophils % (Manual) 1.7 % Basophils % (Manual) 0.9 % Metamyelocytes % (Man) 0.9 % Neutrophils # (Manual) 15.58 H (1.4-6.5) K/uL Total Absolute Neuts 15.58 H (1.4-6.5) K/uL Lymphocytes # (Manual) 2.49 (1.2-3.4) K/uL Total Abs Lymphocytes 2.49 (1.2-3.4) K/uL Monocytes # (Manual) 1.77 H (0.11-0.59) K/uL Eosinophils # (Manual) 0.35 (0-0.5) K/uL Basophils # (Manual) 0.18 (0-0.2) K/uL Metamyelocytes # (Man) 0.18 H (0-0) K/uL ESR 11 (0-14) mm/hr PT (9.0-12.0) Seconds INR (0.9-1.1) Sodium 141 (136-145) mmol/L Potassium 3.3 L (3.5-5.1) mmol/L Chloride 107 (98-107) mmol/L Carbon Dioxide 29 (21-32) mmol/L Anion Gap 5.0 (3-11) BUN 20 H (7-18) mg/dl Creatinine 0.86 (0.6-1.4) mg/dl Est Cr Clr Drug Dosing 161.9 ml/min Est GFR ( Amer) 127.5 Est GFR (Non-Af Amer) 110.0 BUN/Creatinine Ratio 22.8 H (10-20) Glucose 62 L (70-99) mg/dl Lactate (0.4-2.0) mmol/L Calcium 7.6 L (8.5-10.1) mg/dl Magnesium 1.9 (1.8-2.4) mg/dl Total Bilirubin 0.8 (0.2-1) mg/dl AST 13 L (15-37) U/L ALT 22 (12-78) U/L Alkaline Phosphatase 42 L (45-117) U/L C-Reactive Protein 6.81 H (0-0.29) mg/dl Total Protein 4.7 L (6.4-8.2) gm/dl Albumin 2.2 L (3.4-5.0) gm/dl Globulin 2.5 (2.5-4.0) gm/dl Albumin/Globulin Ratio 0.9 (0.9-2) Urine Color Urine Appearance (Clear) Urine pH (4.5-7.5) Ur Specific [place] (1.000-1.030) Urine Protein (Negative) Urine Glucose (UA) (Negative) Urine Ketones (Negative) Urine Blood (Negative) Urine Nitrite (Negative) Urine Bilirubin (Negative) Urine Urobilinogen (Negative) Ur Leukocyte Esterase (Negative) 03/23/20 03/23/20 03/23/20 Range/Units 20:40 20:40 22:30 WBC (4.8-10.8) K/uL RBC (4.7-6.1) M/uL Hgb (14.0-18.0) g/dL Hct (42-52) % MCV (80-100) fL MCH (25-34) pg MCHC (32-36) g/dL RDW Std Deviation (36.4-46.3) fL RDW Coeff of Dax (11.5-14.5) % Plt Count (130-400) K/uL MPV (7.4-10.4) fL Neutrophils % (Manual) % Lymphocytes % (Manual) % Monocytes % (Manual) % Eosinophils % (Manual) % Basophils % (Manual) % Metamyelocytes % (Man) % Neutrophils # (Manual) (1.4-6.5) K/uL Total Absolute Neuts (1.4-6.5) K/uL Lymphocytes # (Manual) (1.2-3.4) K/uL Total Abs Lymphocytes (1.2-3.4) K/uL Monocytes # (Manual) (0.11-0.59) K/uL Eosinophils # (Manual) (0-0.5) K/uL Basophils # (Manual) (0-0.2) K/uL Metamyelocytes # (Man) (0-0) K/uL ESR (0-14) mm/hr PT 11.4 (9.0-12.0) Seconds INR 1.1 (0.9-1.1) Sodium (136-145) mmol/L Potassium (3.5-5.1) mmol/L Chloride (98-107) mmol/L Carbon Dioxide (21-32) mmol/L Anion Gap (3-11) BUN (7-18) mg/dl Creatinine (0.6-1.4) mg/dl Est Cr Clr Drug Dosing ml/min Est GFR ( Amer) Est GFR (Non-Af Amer) BUN/Creatinine Ratio (10-20) Glucose (70-99) mg/dl Lactate 1.6 (0.4-2.0) mmol/L Calcium (8.5-10.1) mg/dl Magnesium (1.8-2.4) mg/dl Total Bilirubin (0.2-1) mg/dl AST (15-37) U/L ALT (12-78) U/L Alkaline Phosphatase (45-117) U/L C-Reactive Protein (0-0.29) mg/dl Total Protein (6.4-8.2) gm/dl Albumin (3.4-5.0) gm/dl Globulin (2.5-4.0) gm/dl Albumin/Globulin Ratio (0.9-2) Urine Color Yellow Urine Appearance Clear (Clear) Urine pH 7.0 (4.5-7.5) Ur Specific [place] 1.018 (1.000-1.030) Urine Protein Negative (Negative) Urine Glucose (UA) Negative (Negative) Urine Ketones Negative (Negative) Urine Blood Negative (Negative) Urine Nitrite Negative (Negative) Urine Bilirubin Negative (Negative) Urine Urobilinogen Negative (Negative) Ur Leukocyte Esterase Negative (Negative) PG Care Time/CCT Total # of Minutes Spent Total Time Spent with Patient: Total time spent is greater than 50% in coordination of care (as documented) at patient's floor/unit and/or counseling patient: Coding Level of Care Code 04906 OBS Care - Level 2 Diagnoses Postoperative back pain G89.18 Hypertension I10 Hypertension type: essential hypertension (1) Hypertension Hypertension type: essential hypertension Qualified Code(s): I10 - Essential (primary) hypertension
--- NOTE | 2020-03-24 07:25 | CT Scan Report ---
LUMBAR SPINE CT WITH CONTRAST CT DOSE: 1676.87 mGy.cm HISTORY: Low back pain, pain into pelvis, recent surgery TECHNIQUE: Multiaxial CT images of the lumbar spine were performed and reformatted in the sagittal an d coronal plane following the use of intravenous contrast. A dose lowering technique was utilized ad jeronimo to the principles of ALARA. COMPARISON: Lumbar spine MRI 03/11/2020. FINDINGS: There is extensive subcutaneous edema within the lumbar region with small focus of subcutan eous gas and associated subcutaneous hematoma within the lower lumbar region. This favors recent post operative change. The subcutaneous hematoma measures approximately 6.8 x 2.9 cm. Mild paravertebral e jose a at the L5-S1 level. This may be due to the recent postoperative change. There is L5-S1 posterior fusion and decompression with pedicle screws and rods. The hardware appears intact. There is also di sc spacers at the L5-S1 level and appears in good position. No fracture or subluxation. Evaluation th e central canal is suboptimal due to the CT technique but appears patent. IMPRESSION: 1. No acute fractures within the lumbar spine. 2. Interval L5-S1 posterior decompression and fusion. The hardware appears intact. 3. Subcutaneous edema, subcutaneous emphysema, a small amount of subcutaneous hemorrhage within the l umbar region. This suggests expected postoperative change. ACT 112: Negative or not required by law. Electronically signed by: Espinoza Busby M.D. 03/24/2020 7:24 AM
--- NOTE | 2020-03-24 07:37 | CT Scan Report ---
CT OF THE ABDOMEN AND PELVIS WITH CONTRAST CLINICAL HISTORY: Low back pain, pain into pelvis, recent surgery COMPARISON STUDY: CT of the abdomen and pelvis March 11, 2019. Renal ultrasound March 18, 2019. TECHNIQUE: Following IV administration of 93 mL of Optiray-320, axial images of the abdomen and pelvi s were obtained from the lung bases to the proximal femurs. Images were reviewed in the axial, sagitt al, and coronal planes. IV contrast was administered without complication. Automated exposure contro l was utilized for the study. A dose lowering technique was utilized adhering to the principles of A KATHI. FINDINGS: Please note that the lumbar spine CT will be reported separately. Prosthetic mitral valve i s incidentally noted. No pneumatosis, free air or portal venous gas is present. The liver, spleen, ad renal glands, left kidney and pancreas are normal. A 1.1 cm lesion within the midpole of the right ki dney is difficult to characterize given its small size. However, this is likely unchanged since CT of February 02, 2015 and is probably benign. There is no hydronephrosis. There is no evidence for a bow el obstruction. The caliber and wall thickness of small and large bowel are normal. A moderate amount of stool within the colon is noted. There is no biliary or pancreatic ductal dilatation. The appendi x is normal. Postoperative findings within the lumbar spine are noted consistent with a posterior dec ompression with L5-S1 discectomy and bilateral pedicle screw fusion. These findings are depicted on t he CT of the lumbar spine which will be reported separately. Infiltration within the operative bed is noted. IMPRESSION: 1. No acute process within the abdomen or pelvis. 2. Moderate amount stool within the colon. 3. Status post recent L5-S1 discectomy, posterior decompression and bilateral pedicle screw fusion of these findings are depicted on the CT of the lumbar spine which will be reported separately. Please see that report for further description. ACT 112: Negative or not required by law. Electronically signed by: Lucian Livingston M.D. 03/24/2020 7:36 AM
[2020-03-24] MEDS: oxyCODONE HCL 10 MG TABCR (OxyCONTIN) PO SCH ×2 (08:10→20:58)
[2020-03-24] MEDS: MUPIROCIN 2% OINT 22 GM TUBE EXT SCH ×2 (08:10→20:59)
[2020-03-24] MEDS: GABAPENTIN 400 MG CAP PO SCH ×3 (08:10→21:00)
[2020-03-24] MEDS: BETAMETHASONE DIP AUG 0.05% OINT 15 GM TUBE EXT SCH ×2 (08:11→20:59)
[2020-03-24] MEDS: METOPROLOL SUCC 50MG EXT REL TAB PO SCH ×2 (08:15→20:58)
[2020-03-24] MEDS: traMADol HCL 50 MG TABLET PO PRN ×2 (08:31→14:46)
--- NOTE | 2020-03-24 12:37 | Orthopedic Consultation ---
Date of Consultation March 24, 2020 Assessment & Plan (1) Postoperative back pain: At this time it is reasonable to observe the hematoma. It should resorb on its own. Is not creating any neural compression. Nevertheless he is quite challenging from a pain control standpoint with extensive history of narcotic requirements. I will continue to follow him daily. Present on Admission?: Yes History of Present Illness Reason for Consultation: Back pain Attending Physician: Eric Degroot, DO History of Present Illness This is a 40-year-old male well-known to me presents to the ER last evening with worsening back pain and in complete pain control. He does have a established history of narcotic dependence. He is struggling with evidence of a superficial hematoma and ecchymosis. He states his pain does limit his ability to stand and ambulate for any distance but is able to do so. He denies any loss of bowel bladder function. Allergies Allergy/AdvReac Type Severity Reaction Status Date / Time adhesive Allergy Unknown SKIN Verified 03/23/20 11:27 IRRITATION WITH BANDAIDS topiramate [From Topamax] AdvReac Intermediate kidney Unverified 03/23/20 11:27 stones metoclopramide AdvReac Mild anxiety Verified 03/23/20 11:27 Home Medications Home Medications Medication Instructions Recorded Confirmed Type metoprolol succinate 100 mg 100 mg PO BID #60 tab 06/19/19 03/23/20 Rx tablet,extended release 24 hr betamethasone dipropionate 0.05 % 1 appln TOP BID #15 gm 10/16/19 03/23/20 Rx topical ointment mupirocin 2 % topical ointment 1 appln TOP BID #22 gm 10/16/19 03/23/20 Rx oxycodone 5 mg PO Q4 PRN #30 tab 03/19/20 03/23/20 Rx tramadol 50 mg PO Q6H PRN #30 tab 03/19/20 03/23/20 Rx gabapentin 400 mg PO TID #90 cap 03/21/20 03/23/20 Rx oxycodone [OxyContin] 10 mg PO BID #28 tab 03/21/20 03/23/20 Rx lidocaine 5 % topical patch 1 patch TRANSDERMAL QAM PRN ea 03/23/20 03/23/20 Hi story Patient History Medical History Abdominal pain Abscess of left upper extremity Acid reflux Acute UTI Bilateral kidney stones Bilateral lower extremity edema BPH (benign prostatic hyperplasia) Chest pain Dehydration Endocarditis Failure of outpatient treatment Febrile illness Fever Headache, migraine, intractable Hypertension Intractable abdominal pain Intractable pain Leg pain Leg swelling Leukocytosis Migraine CLUSTER TYPE Obstructive uropathy Positive blood culture SIRS (systemic inflammatory response syndrome) Surgical History H/O hand surgery H/O knee surgery H/O mitral valve repair H/O repair of right rotator cuff H/O shoulder surgery History of cardiac cath DIAGNOSTIC-2016 NO STENTS-[facility] History of cystoscopy WITH STENT PLACEMENT X 2 History of heart valve replacement REPAIR MITRAL AND AORTIC VALVE [facility] 2016 History of kidney surgery History of left cataract surgery History of mandibular surgery ORIF S/P BROKEN JAW A TEEN-FULL ROM PER PT History of tonsillectomy and adenoidectomy S/P tonsillectomy and adenoidectomy Family History Mother Hypertension Grandfather Pancreatic cancer Aunt Diabetes Grandmother (Maternal) Diabetes Family/Other Diabetes Grandmother (Paternal) Diabetes Grandfather (Maternal) Family hx of colon cancer Social History Smoking Status: Never smoker Second Hand Exposure: No; Hx Alcohol Use: Yes Alcohol type: beer Hx Substance Use: No Preferred Language: Occitan Communication Ability: Effective Laboratory Technical Specialist Required: No Beliefs That Will Affect Care: None marital status: Current Living Situation: Family Current Living Situation Comment: and daughter Other Information That Helps Us Care for You: Yes Feels Safe at Home: Yes Safety Concerns: Feels Safe At This Time Assistive Devices: Oxygen - Continuous Physical Exam Physical Exam: On exam he appears to be intact strength testing lower extremities. He is extensive ecchymosis across the lumbosacral junction. I am able to palpate a hematoma in the periincisional area. There is no active bleeding. The incision is healing appropriately. Results & Data ([facility]) Vital Signs (Past 12 Hours) Vital Signs Temp Pulse Resp BP BP Pulse Ox 03/24/20 08:15 36.6 C 108 H 22 125/79 100 03/24/20 05:13 36.7 C 109 H 18 107/66 99 03/24/20 02:00 37.3 C 117 H 18 114/71 97 03/24/20 01:48 127 H 22 107/71 97
--- NOTE | 2020-03-24 13:04 | Hospitalist Progress Note ---
Date of Service March 24, 2020 Assessment & Plan (1) Postoperative back pain: Patient with two days of worsening back pain, 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 No clinical evidence of infection or complication. -Observation to medical floor -Continue home medication regimen to include: Oxycontin ER 10mg po BID Oxy IR 10mg po q4 PRN Gabapentin 400mg po TID Tramadol 50mg po q 6 hours Lidoderm patch -Dilaudid 0.5mg IV q 2 hours as needed -Ortho consultation appreciated -Fall precautions -PT/OT Evaluation -Bowel regimen PRN Consult pain management as patient is not finding relief with current regimen (2) Hypertension: Stable -Continue Metoprolol 100mg po BID -Monitor (3) Rash: Tinea? Patient has been on quite a lot of steroids for his back so certainly is immunosuppressed Will try terbinafine for now and monitor (4) Hematoma: Continue to monitor, per ortho, no intervention for now Will recheck hgb this evening to monitor for stability (5) Hypokalemia: Replaced on admission, will recheck prp am (6) DVT prophylaxis: hold chemoprophylaxis for hematoma, SCDs Admission and Anticipated Discharge Date Admission Date: March 24, 2020 Subjective Mr Tong reports severe pain in his back radiating down to his feet. He feels like he is laying on a rolled up towel. He also has a rash on his right arm. ROS Constitutional: no chills, aches, sweats or fever Respiratory: no sob,cough, sputum, or wheezing Cardiac: no chest pain, palpitations, edema, orthopnea or lightheadedness GI: no abdominal pain, nausea, vomiting, diarrhea or constipation : no dysuria or hesitancy Extremities: no joint pain or weakness Skin: no rash All other systems reviewed and negative Physical Exam Physical Exam: General: no distress Eyes: normal inspection, PERLL Respiratory: chest non tender, clear to auscultation, normal breath sounds, no respiratory distress, no accessory muscle use Cardiac: regular rate and rhythm, no rub or gallop, no murmur, no edema, no jvd GI/: active bowel sounds, no abd pain or tenderness, soft, non distended Extremities: normal range of motion, normal strength, non tender Neuro/Psych: alert and oriented x 3, normal mood and affect Skin: normal color, dry, right arm rash with reddened scabbed border encircling multiple smaller annular lesions with flaking skin, large hematoma across lower back Results & Data Results & Data ([facility]) Vital Signs (Past 12 Hours) Vital Signs Temp Pulse Resp BP BP Pulse Ox 03/24/20 08:15 36.6 C 108 H 22 125/79 100 03/24/20 05:13 36.7 C 109 H 18 107/66 99 03/24/20 02:00 37.3 C 117 H 18 114/71 97 03/24/20 01:48 127 H 22 107/71 97 PG Care Time/CCT Total # of Minutes Spent Total Time Spent with Patient: Total time spent is greater than 50% in coordination of care (as documented) at patient's floor/unit and/or counseling patient: Coding Level of Care Code 84064 Subseq Hosp Care Lvl 3 Diagnoses Postoperative back pain G89.18 Hypertension I10 Hypertension type: essential hypertension Rash R21 Hematoma T14.8XXA Hypokalemia E87.6 DVT prophylaxis Z29.9 (1) Hypertension Hypertension type: essential hypertension Qualified Code(s): I10 - Essential (primary) hypertension
[2020-03-24] MEDS: TERBINAFINE CR 30 GM TUBE EXT SCH (21:48)
[2020-03-25] MEDS: HYDROmorphone INJ 0.5 MG/0.5 ML SYR IV PRN ×10 (02:10→23:35)
[2020-03-25] MEDS: oxyCODONE HCL IR 5 MG TAB (IMMEDIATE RELEASE) PO PRN ×4 (02:58→22:03)
[2020-03-25 07:27] LABS: Albumin Level 2.4 gm/dl (3.4-5.0); BUN Creatinine Ratio 29.5 (10-20); Bilirubin Direct 0.3 mg/dl (0-0.2); Bilirubin,Total 0.9 mg/dl (0.2-1); Calcium 8.3 mg/dl (8.5-10.1); Creatinine Clr Calc Pharmacy 178.5 ml/min; Est GFR (African American) 132.7; Est GFR (Non-African American) 114.5; Total Protein 5.3 gm/dl (6.4-8.2)
[2020-03-25 07:34] LABS: Eosinophils # (auto) 0.29 K/uL (0-0.5); Eosinophils % (auto) 2.1 %; Hematocrit (blood only) 37.6 % (42-52); Hemoglobin 12.7 g/dL (14.0-18.0); Immature Granulocytes # (auto) 0.18 K/uL (0.00-0.02); Immature Granulocytes % (auto) 1.3 %; Lymphocytes # (auto) 1.36 K/uL (1.2-3.4); Lymphocytes % (auto) 9.8 %; Mean Corpuscular Hemoglobin 30.4 pg (25-34); Mean Platelet Volume 9.9 fL (7.4-10.4); Monocytes # (auto) 1.17 K/uL (0.11-0.59); Monocytes % (auto) 8.4 %; Neutrophils % (auto) 78.4 %; Platelet Count 185 K/uL (130-400); RDW Coefficient of Variation 14.7 % (11.5-14.5); RDW Standard Deviation 47.8 fL (36.4-46.3); Red Blood Count 4.18 M/uL (4.7-6.1)
[2020-03-25] MEDS: TERBINAFINE CR 30 GM TUBE EXT SCH ×2 (08:16→20:36)
[2020-03-25] MEDS: BETAMETHASONE DIP AUG 0.05% OINT 15 GM TUBE EXT SCH ×2 (08:16→20:36)
[2020-03-25] MEDS: GABAPENTIN 400 MG CAP PO SCH ×3 (08:17→20:34)
[2020-03-25] MEDS: METOPROLOL SUCC 50MG EXT REL TAB PO SCH ×2 (08:17→20:35)
[2020-03-25 08:22] LABS: Mean Corpuscular Hgb Conc 33.8 g/dL (32-36)
--- NOTE | 2020-03-25 08:26 | Pain Management Consultation ---
Date of Consultation March 25, 2020 Assessment & Plan (1) Status post lumbar surgery: (2) Postoperative back pain: * Continue OxyContin 10 mg twice daily, oxycodone 5 mg every 4 hours, gabapentin 400 mg 3 times daily, lidocaine patches. * Tramadol was discontinued due to lack of efficacy. * Patient will continue IV Dilaudid 0.5 mg every 2 hours for breakthrough pain relief. * Patient would like to discuss possible evacuation of hematoma with Dr. Melara. * Once pain is improving IV Dilaudid could be discontinued and he could be placed back on oxycodone 10 mg every 4 hours. * Baclofen 10 mg 3 times daily has been ordered. * There is nothing interventional to offer the patient. Thank you for the consultation History of Present Illness Attending Physician: Eric Degroot DO History of Present Illness Mr. Tong is a 40 year old male with intractable low back pain. He did receive an L5-S1 fusion by Dr. Melara on 03/17/2020. After significant difficulty trying to manage his postop pain he was satisfied with the regimen of OxyContin 10 mg twice daily oxycodone 10 mg every 4 hours, baclofen 10mg TID, and gabapentin 400mg TID. He was discharged to home on 03/21/2020. For 2 days he was reporting adequate pain relief but then it started to worsen. He went back to the Emergency Department and was admitted for intractable back pain. Patient was found to have a 6.8 x 2.9 cm subcutaneous hematoma. Patient feels like there is a hard rock in his low back. The pain is significantly worse when trying to lay supine. He is currently utilizing gabapentin 400 mg 3 times daily, OxyContin 10mg BID, oxycodone 5mg x 4 hours, lidocaine patch, and IV Dilaudid 0.5mg x 2 hours. He denies any leg weakness, saddle anesthesia, foot drop, or falls. Pain Assessment Full Body Front + Back: 1. sharp 2. cramping 3. numbness/tingling [facility] Combined Pain Scale: 7-Severe - Pain prevents productive activity. Impossible to tolerate. Allergies Allergy/AdvReac Type Severity Reaction Status Date / Time adhesive Allergy Unknown SKIN Verified 03/23/20 11:27 IRRITATION WITH BANDAIDS topiramate [From Topamax] AdvReac Intermediate kidney Unverified 03/23/20 11:27 stones metoclopramide AdvReac Mild anxiety Verified 03/23/20 11:27 Home Medications Home Medications Medication Instructions Recorded Confirmed Type metoprolol succinate 100 mg 100 mg PO BID #60 tab 06/19/19 03/23/20 Rx tablet,extended release 24 hr betamethasone dipropionate 0.05 % 1 appln TOP BID #15 gm 10/16/19 03/23/20 Rx topical ointment mupirocin 2 % topical ointment 1 appln TOP BID #22 gm 10/16/19 03/23/20 Rx oxycodone 5 mg PO Q4 PRN #30 tab 03/19/20 03/23/20 Rx tramadol 50 mg PO Q6H PRN #30 tab 03/19/20 03/23/20 Rx gabapentin 400 mg PO TID #90 cap 03/21/20 03/23/20 Rx oxycodone [OxyContin] 10 mg PO BID #28 tab 03/21/20 03/23/20 Rx lidocaine 5 % topical patch 1 patch TRANSDERMAL QAM PRN ea 03/23/20 03/23/20 History Patient History Medical History Abdominal pain Abscess of left upper extremity Acid reflux Acute UTI Bilateral kidney stones Bilateral lower extremity edema BPH (benign prostatic hyperplasia) Chest pain Dehydration Endocarditis Failure of outpatient treatment Febrile illness Fever Headache, migraine, intractable Hypertension Intractable abdominal pain Intractable pain Leg pain Leg swelling Leukocytosis Migraine CLUSTER TYPE Obstructive uropathy Positive blood culture SIRS (systemic inflammatory response syndrome) Surgical History H/O hand surgery H/O knee surgery H/O mitral valve repair H/O repair of right rotator cuff H/O shoulder surgery History of cardiac cath DIAGNOSTIC-2016 NO [facility] History of cystoscopy WITH STENT PLACEMENT X 2 History of heart valve replacement REPAIR MITRAL AND AORTIC VALVE [facility] 2016 History of kidney surgery History of left cataract surgery History of mandibular surgery ORIF S/P BROKEN JAW A TEEN-FULL ROM PER PT History of tonsillectomy and adenoidectomy S/P tonsillectomy and adenoidectomy Family History Mother Hypertension Grandfather Pancreatic cancer Aunt Diabetes Grandmother (Maternal) Diabetes Family/Other Diabetes Grandmother (Paternal) Diabetes Grandfather (Maternal) Family hx of colon cancer Social History Smoking Status: Never smoker Second Hand Exposure: No; Hx Alcohol Use: Yes Alcohol type: beer Hx Substance Use: No Preferred Language: Croatian Communication Ability: Effective 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 Mood and affect is appropriate. Does not appear in acute distress. HEAD/FACE: Normocephalic and atraumatic. EYES: No drainage or conjunctival injection. ENT: Nose without bleeding or discharge. Oral mucosa moist. NECK: Full ROM without apparent pain. No swelling or masses noted. RESPIRATORY: Patient with unlabored breathing. No signs of respiratory distress. CHEST/AXILLA: Chest movement symmetrical. No deformities noted. ABDOMEN/GI: No distension BACK: There is a healing surgical incision of the lumbar midline. There is ecchymosis along the entire lumbar region. Mild diffuse tenderness. LOWER EXTREMITIES: Negative straight leg raise bilaterally. 5/5 strength of the lower extremities. NEURO:Awake, alert, and oriented x 3. Results (Pain Clinic) Diagnostic Review CT Findings: LUMBAR SPINE CT WITH CONTRAST CT DOSE: 1676.87 mGy.cm HISTORY: Low back pain, pain into pelvis, recent surgery TECHNIQUE: Multiaxial CT images of the lumbar spine were performed and reformatted in the sagittal and coronal plane following the use of intravenous contrast. A dose lowering technique was utilized adhering to the principles of ALARA. COMPARISON: Lumbar spine MRI 03/11/2020. FINDINGS: There is extensive subcutaneous edema within the lumbar region with small focus of subcutaneous gas and associated subcutaneous hematoma within the lower lumbar region. This favors recent postoperative change. The subcutaneous hematoma measures approximately 6.8 x 2.9 cm. Mild paravertebral edema at the L5-S1 level. This may be due to the recent postoperative change. There is L5-S1 posterior fusion and decompression with pedicle screws and rods. The hardware appears intact. There is also disc spacers at the L5-S1 level and appears in good position. No fracture or subluxation. Evaluation the central canal is suboptimal due to the CT technique but appears patent. IMPRESSION: 1. No acute fractures within the lumbar spine. 2. Interval L5-S1 posterior decompression and fusion. The hardware appears intact. 3. Subcutaneous edema, subcutaneous emphysema, a small amount of subcutaneous hemorrhage within the lumbar region. This suggests expected postoperative change. ACT 112: Negative or not required by law. Electronically signed by: Espinoza Busby M.D. 03/24/2020 7:24 AM
[2020-03-25] MEDS: oxyCODONE HCL 10 MG TABCR (OxyCONTIN) PO SCH ×2 (09:16→20:38)
[2020-03-25] MEDS: BACLOFEN 10 MG TAB PO SCH ×3 (09:28→20:35)
--- NOTE | 2020-03-25 13:25 | Orthopedic Progress Note ---
Date of Service March 25, 2020 Assessment & Plan (1) Hematoma: Admission and Anticipated Discharge Date Admission Date: March 24, 2020 At this time encourage him to ambulate as tolerated. Did not appreciate any need for urgent evacuation of the hematoma. Is certainly not expanding. It is resolving appropriately. There is no evidence of infection. I will continue to follow. Subjective Patient states his pain management is improved. He denies any radiculopathy. He states is been ambulating about the room without difficulty. Physical Exam Physical Exam: On exam he does appear much more comfortable. The continues to demonstrate significant ecchymosis throughout the lumbosacral region. I do not however palpate any masses. The hematoma is supple. There is no drainage. No evidence of infection. Results & Data ([facility]) Vital Signs (Past 12 Hours) Vital Signs Temp Pulse Resp BP Pulse Ox 03/25/20 10:59 118 H 93 03/25/20 07:18 36.9 C 103 H 18 121/78 100
--- NOTE | 2020-03-25 15:54 | Hospitalist Progress Note ---
Date of Service March 25, 2020 Assessment & Plan (1) Postoperative back pain: Patient with two days of worsening back pain, 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 No clinical evidence of infection or complication. -Observation to medical floor -Pain management saw patient and recommended the following: Continue OxyContin 10 mg twice daily, oxycodone 5 mg every 4 hours, gabapentin 400 mg 3 times daily, lidocaine patches. Tramadol was discontinued due to lack of efficacy. Patient will continue IV Dilaudid 0.5 mg every 2 hours for breakthrough pain relief. Once pain is improving IV Dilaudid could be discontinued and he could be placed back on oxycodone 10 mg every 4 hours. Baclofen 10 mg 3 times daily -Ortho consulted - no surgical intervention at this time -Fall precautions -PT/OT Evaluation -Bowel regimen PRN (2) Hypertension: Stable -Continue Metoprolol 100mg po BID -Monitor (3) Rash: Tinea? Patient has been on quite a lot of steroids for his back so certainly is immunosuppressed Will try terbinafine for now and monitor, will need to follow up with derm at discharge (4) Hematoma: Continue to monitor, per ortho - no intervention for now Hgb stable (5) Diaphoresis: Mr. Tong is having quite a bit of intermittent diaphoresis. Unclear etiology. BC are ngtd, he is afebrile, wbs are trending down. No s/s of infection. He denies any benzodiazepines or alcohol use that might be resulting in withdrawal. Possibly secondary to pain. (6) Hypokalemia: Resolved (7) DVT prophylaxis: hold chemoprophylaxis for hematoma, SCDs Admission and Anticipated Discharge Date Admission Date: March 24, 2020 Subjective Mr. Tong feels that his pain is much worse today. He says he is numb in his feet. He is also having periods of profuse sweating which he does associate with pain at times. No fevers. His father was on speaker phone during my assessment and was updated. ROS Constitutional: see HPI Respiratory: no sob,cough, sputum, or wheezing Cardiac: no chest pain, palpitations, edema, orthopnea or lightheadedness GI: no abdominal pain, nausea, vomiting, diarrhea or constipation : no dysuria or hesitancy Extremities: no joint pain or weakness Skin: no rash All other systems reviewed and negative Physical Exam Physical Exam: General: no distress Eyes: normal inspection, PERLL Respiratory: chest non tender, clear to auscultation, normal breath sounds, no respiratory distress, no accessory muscle use Cardiac: regular rate and rhythm, no rub or gallop, no murmur, no edema, no jvd GI/: active bowel sounds, no abd pain or tenderness, soft, non distended Extremities: normal range of motion, normal strength, non tender Neuro/Psych: alert and oriented x 3, normal mood and affect Skin: normal color, dry Results & Data Results & Data ([facility]) Vital Signs (Past 12 Hours) Vital Signs Temp Pulse Resp BP Pulse Ox 03/25/20 10:59 118 H 93 03/25/20 07:18 36.9 C 103 H 18 121/78 100 PG Care Time/CCT Total # of Minutes Spent Total Time Spent with Patient: Total time spent is greater than 50% in coordination of care (as documented) at patient's floor/unit and/or counseling patient: Coding Level of Care Code 74849 Subseq Hosp Care Lvl 3 Diagnoses Postoperative back pain G89.18 Hypertension I10 Hypertension type: essential hypertension Rash R21 Hematoma T14.8XXA Diaphoresis R61 Hypokalemia E87.6 DVT prophylaxis Z29.9 (1) Hypertension Hypertension type: essential hypertension Qualified Code(s): I10 - Essential (primary) hypertension
[2020-03-25] MEDS: MUPIROCIN 2% OINT 22 GM TUBE EXT SCH (20:36)
[2020-03-25] MEDS ORDERED: HYDROmorphone INJ 1 MG/ML SYRINGE IV ONE (22:12)
[2020-03-26] MEDS: oxyCODONE HCL IR 5 MG TAB (IMMEDIATE RELEASE) PO PRN ×3 (02:40→11:18)
[2020-03-26] MEDS: HYDROmorphone INJ 0.5 MG/0.5 ML SYR IV PRN ×11 (02:41→23:49)
[2020-03-26 07:50] LABS: Hematocrit (blood only) 37.5 % (42-52); Hemoglobin 12.7 g/dL (14.0-18.0); Mean Corpuscular Hemoglobin 30.3 pg (25-34); Mean Corpuscular Hgb Conc 33.9 g/dL (32-36); Mean Corpuscular Volume 89.5 fL (80-100); Mean Platelet Volume 9.4 fL (7.4-10.4); Platelet Count 230 K/uL (130-400); RDW Coefficient of Variation 14.6 % (11.5-14.5); RDW Standard Deviation 47.3 fL (36.4-46.3); Red Blood Count 4.19 M/uL (4.7-6.1); White Blood Count 14.51 K/uL (4.8-10.8)
[2020-03-26 08:23] LABS: BUN Creatinine Ratio 22.2 (10-20); Calcium 8.9 mg/dl (8.5-10.1); Creatinine Clr Calc Pharmacy 156.4 ml/min; Est GFR (African American) 125.7; Est GFR (Non-African American) 108.5; Potassium 3.8 mmol/L (3.5-5.1)
[2020-03-26] MEDS: oxyCODONE HCL 10 MG TABCR (OxyCONTIN) PO SCH ×2 (08:32→20:39)
[2020-03-26] MEDS: TERBINAFINE CR 30 GM TUBE EXT SCH ×2 (08:36→20:40)
[2020-03-26] MEDS: MUPIROCIN 2% OINT 22 GM TUBE EXT SCH ×2 (08:36→20:40)
[2020-03-26] MEDS: BETAMETHASONE DIP AUG 0.05% OINT 15 GM TUBE EXT SCH ×2 (08:36→20:41)
[2020-03-26] MEDS: METOPROLOL SUCC 50MG EXT REL TAB PO SCH ×2 (08:37→20:39)
[2020-03-26] MEDS: GABAPENTIN 400 MG CAP PO SCH ×3 (08:37→20:39)
[2020-03-26] MEDS: BACLOFEN 10 MG TAB PO SCH ×3 (08:38→20:39)
--- NOTE | 2020-03-26 19:54 | Hospitalist Progress Note ---
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 -Pain management saw patient and recommended the following: Continue OxyContin 10 mg twice daily, oxycodone 5 mg every 4 hours, gabapentin 400 mg 3 times daily, lidocaine patches. Tramadol was discontinued due to lack of efficacy. Patient will continue IV Dilaudid 0.5 mg every 2 hours for breakthrough pain relief. Once pain is improving IV Dilaudid could be discontinued and he could be placed back on oxycodone 10 mg every 4 hours. Baclofen 10 mg 3 times daily Patient would really prefer a po dilaudid regimen for home as he feels that is the only thing that has worked for him in the past. Will discuss with pain management tomorrow. No s/s of infection, afebrile, wbcs are trending down from their peak of 37.5 on 03/18 though they have been about the same for the past two days at 14. Continue to trend. Blood cultures ngtd -Ortho consulted - no surgical intervention at this time -Fall precautions -PT/OT Evaluation -Bowel regimen PRN (2) Hypertension: Stable -Continue Metoprolol 100mg po BID -Monitor (3) Rash: Tinea corporis - Patient has been on quite a lot of steroids for his back so certainly is immunosuppressed Terbinafine appears to be having good effect though rash is rather large and will take some time to heal completely (4) Hematoma: Continue to monitor, per ortho - no intervention for now Hgb stable (5) Diaphoresis: Mr. Tong is having quite a bit of intermittent diaphoresis. Unclear etiology. BC are ngtd, he is afebrile, wbs are trending down. No s/s of infection. He denies any benzodiazepines or alcohol use that might be resulting in withdrawal. Possibly secondary to pain vs hormone shifts due to low testosterone? Will continue to monitor for any signs of developing infection. Recheck cbc and check a procal in the morning (6) Hypokalemia: Resolved (7) Low testosterone: Testosterone level checked on previous admission and very low at 21, ACTH also low at < 5. TSH was normal Will get in touch with endocrinology tomorrow (8) DVT prophylaxis: hold chemoprophylaxis for hematoma, SCDs Admission and Anticipated Discharge Date Admission Date: March 24, 2020 Subjective Mr. Tong is diaphoretic and pale. He continues to have back pain with radiculopathy. No changes in bowels or bladder. He is very concerned that his hematoma is the source of his pain. Spent time at bedside answering questions for him and his brother who is an ER physician. ROS Constitutional: see HPI Respiratory: no sob,cough, sputum, or wheezing Cardiac: no chest pain, palpitations, edema, orthopnea or lightheadedness GI: no abdominal pain, nausea, vomiting, diarrhea or constipation : no dysuria or hesitancy Extremities: no joint pain or weakness Skin: no rash All other systems reviewed and negative Physical Exam Constitutional: + diaphoretic Respiratory: normal respiratory effort, lungs clear to auscultation Cardiovascular: RRR, no murmur, no edema Gastrointestinal (Abdomen): normal bowel sounds, soft, nontender, no hepatosplenomegaly Musculoskeletal: no cyanosis or clubbing, extremities motor strength 5/5 Skin: large hematoma lower back, right arm tinea rash Neurologic: moves all extremities and awake Psychiatric: A+Ox3, euthymic affect Results & Data Results & Data ([facility]) Vital Signs (Past 12 Hours) Vital Signs Temp Pulse Resp BP Pulse Ox 03/26/20 15:11 36.6 C 90 17 125/74 100 03/26/20 08:04 36.9 C 98 H 16 128/77 98 PG Care Time/CCT Total # of Minutes Spent Total Time Spent with Patient: Total time spent is greater than 50% in coordination of care (as documented) at patient's floor/unit and/or counseling patient: Coding Level of Care Code 13317 Subseq Hosp Care Lvl 3 Diagnoses Postoperative back pain G89.18 Hypertension I10 Hypertension type: essential hypertension Rash R21 Hematoma T14.8XXA Diaphoresis R61 Hypokalemia E87.6 Low testosterone R79.89 DVT prophylaxis Z29.9 (1) Hypertension Hypertension type: essential hypertension Qualified Code(s): I10 - Essential (primary) hypertension
[2020-03-27] MEDS: oxyCODONE HCL IR 5 MG TAB (IMMEDIATE RELEASE) PO PRN ×4 (00:15→18:28)
[2020-03-27] MEDS: ACETAMINOPHEN 325 MG TAB PO PRN (04:13)
[2020-03-27] MEDS: HYDROmorphone INJ 0.5 MG/0.5 ML SYR IV PRN ×5 (04:14→22:48)
[2020-03-27 06:38] LABS: Hematocrit (blood only) 37.3 % (42-52); Hemoglobin 12.8 g/dL (14.0-18.0); Mean Corpuscular Hgb Conc 34.3 g/dL (32-36); Mean Corpuscular Volume 90.3 fL (80-100); Mean Platelet Volume 9.9 fL (7.4-10.4); Platelet Count 253 K/uL (130-400); RDW Coefficient of Variation 14.9 % (11.5-14.5); RDW Standard Deviation 48.4 fL (36.4-46.3); Red Blood Count 4.13 M/uL (4.7-6.1)
[2020-03-27 07:09] LABS: BUN Creatinine Ratio 23.1 (10-20); Calcium 8.7 mg/dl (8.5-10.1); Est GFR (African American) 123.5; Est GFR (Non-African American) 106.5; Potassium 3.6 mmol/L (3.5-5.1)
--- NOTE | 2020-03-27 09:28 | Pain Management Progress Note ---
Date of Service March 27, 2020 Assessment & Plan (1) Postoperative back pain: We have discussed weaning off of the IV Dilaudid in preparation for discharge back to home. IV Dilaudid has been changed from x 2 hours to every 8 hours if needed for breakthrough pain. He will try not to use the IV Dilaudid at all. We will maintain OxyContin at 10mg BID. Oxycodone will be increased to 10mg x 4 hours PRN pain. Continue Baclofen 10mg TID and Gabapentin 400mg TID. Once pain is fairly controlled he will be discharged to home. Admission and Anticipated Discharge Date Admission Date: March 24, 2020 Subjective Mr. Tong is reporting mild improvement in pain control today. He is currently on OxyContin 10 mg twice daily, gabapentin 400 mg 3 times daily, baclofen 10 mg 3 times daily, oxycodone every 4 hours, and 0.5 IV Dilaudid every 2 hours. Patient is aware that he will need to wean off of IV Dilaudid to prepare for discharge back to home. He is willing to wean off of the IV Dilaudid today. He is rating his pain 7/10 currently. He does continue to e xperience numbness into the legs. When he is standing for up to 5 minutes he would does feel a heaviness sensation in the low back and into the legs that requires him to sit down. He denies any bowel/bladder incontinence, saddle anesthesia, foot drop, leg weakness, falls. Case discussed with Dr. Noelle Holcomb Pain Assessment Pain Assessment Full Body Front + Back: 1. 2. 3. 4. 5. Physical Exam Physical Exam: GENERAL: Speech and cognition is intact. Mood and affect is appropriate. Does not appear in acute distress. HEAD/FACE: Normocephalic and atraumatic. EYES: No drainage or conjunctival injection. ENT: Nose without bleeding or discharge. Oral mucosa moist. NECK: Full ROM without apparent pain. No swelling or masses noted. RESPIRATORY: Patient with unlabored breathing. No signs of respiratory distress. CHEST/AXILLA: Chest movement symmetrical. No deformities noted. ABDOMEN/GI: No distension BACK: There is a healing surgical incision of the lumbar midline. There is ecchymosis along the entire lumbar region. Mild diffuse tenderness. LOWER EXTREMITIES: Negative straight leg raise bilaterally. 5/5 strength of the lower extremities. NEURO:Awake, alert, and oriented x 3.
[2020-03-27] MEDS: GABAPENTIN 400 MG CAP PO SCH ×3 (09:40→21:16)
[2020-03-27] MEDS: oxyCODONE HCL 10 MG TABCR (OxyCONTIN) PO SCH (09:40)
[2020-03-27] MEDS: BETAMETHASONE DIP AUG 0.05% OINT 15 GM TUBE EXT SCH (09:41)
[2020-03-27] MEDS: BACLOFEN 10 MG TAB PO SCH ×3 (09:41→21:15)
[2020-03-27] MEDS: MUPIROCIN 2% OINT 22 GM TUBE EXT SCH ×2 (09:41→21:14)
[2020-03-27] MEDS: TERBINAFINE CR 30 GM TUBE EXT SCH ×2 (09:41→21:14)
[2020-03-27] MEDS: METOPROLOL SUCC 50MG EXT REL TAB PO SCH ×2 (09:43→21:17)
--- NOTE | 2020-03-27 10:32 | Orthopedic Progress Note ---
Date of Service March 27, 2020 Assessment & Plan (1) Postoperative back pain: Admission and Anticipated Discharge Date Admission Date: March 24, 2020 At this time we will continue physical therapy in my opinion is okay to return home and I will see him next week in the office for follow-up. Subjective Patient continues to complain of back pain but overall is improving. Physical Exam Physical Exam: On exam incisions healing nicely. There is no erythema no drainage. I am able to palpate a small hematoma but appears to be improving. He is neurologically intact. Results & Data ([facility]) Vital Signs (Past 12 Hours) Vital Signs Temp Pulse Resp BP BP Pulse Ox 03/27/20 08:00 36.8 C 92 H 18 125/67 98 03/27/20 00:16 37.1 C 108 H 14 108/62 96 03/26/20 22:48 37.0 C 104 H 16 98/56 L 98
--- NOTE | 2020-03-27 19:33 | Hospitalist Progress Note ---
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 -Pain management saw patient and recommended the following: Continue OxyContin 10 mg twice daily, oxycodone 10 mg every 4 hours, gabapentin 400 mg 3 times daily, lidocaine patches. - Given patient's continued pain I discussed adjustments with pain management this afternoon. They recommend increasing the OxyContin to 20 mg twice daily. Tramadol was discontinued due to lack of efficacy. Patient will continue IV Dilaudid 0.5 mg every 8 hours for breakthrough pain relief. Baclofen 10 mg 3 times daily No s/s of infection, afebrile, wbcs are trending down from their peak of 37.5 on 03/18 though they have been about the same for the past two days at 14. Continue to trend. Blood cultures ngtd -Ortho consulted - no surgical intervention at this time -Fall precautions -PT/OT Evaluation -Bowel regimen PRN (2) Hypertension: Stable -Continue Metoprolol 100mg po BID -Monitor (3) Rash: Tinea corporis - Patient has been on quite a lot of steroids for his back and under stress from pain and surgery so certainly is immunosuppressed Continue Terbinafine Consult dermatology (4) Hematoma: Continue to monitor, per ortho - no intervention for now Hgb stable (5) Diaphoresis: Mr. Tong is having quite a bit of intermittent diaphoresis. Unclear etiology. BC are ngtd, he is afebrile, wbs are trending down, procal wnl. No s/s of infection. He denies any benzodiazepines or alcohol use that might be resulting in withdrawal. Possibly secondary to pain vs hormone shifts due to low testosterone? Will continue to monitor for any signs of developing infection. (6) Hypokalemia: Resolved (7) Low testosterone: Testosterone level checked on previous admission and very low at 21, ACTH also low at < 5. TSH was normal Discussed with endocrinology - recommends rechecking these levels when patient is past acute illness and not on as many narcotics (8) DVT prophylaxis: hold chemoprophylaxis for hematoma, SCDs Admission and Anticipated Discharge Date Admission Date: March 24, 2020 Subjective Mr. Tong is very frustrated with his pain control plan. He feels his pain is not well enough controlled and rates it as an 8/10. He is also very frustrated with the sensation and pain from the hematoma on his back and the back spasms. He continues to have intermittent numbness in his legs ROS Constitutional: no chills, aches, sweats or fever Respiratory: no sob,cough, sputum, or wheezing Cardiac: no chest pain, palpitations, edema, orthopnea or lightheadedness GI: no abdominal pain, nausea, vomiting, diarrhea or constipation : no dysuria or hesitancy Extremities: no joint pain or weakness Skin: no rash All other systems reviewed and negative Physical Exam Physical Exam: General: no distress Eyes: normal inspection, PERLL Respiratory: chest non tender, clear to auscultation, normal breath sounds, no respiratory distress, no accessory muscle use Cardiac: regular rate and rhythm, no rub or gallop, no murmur, no edema, no jvd GI/: active bowel sounds, no abd pain or tenderness, soft, non distended Extremities: normal range of motion, normal strength, non tender Neuro/Psych: alert and oriented x 3, normal mood and affect Skin: normal color, dry, large hematoma over lower back, right arm scaly erythematous annular rash Results & Data Results & Data ([facility]) Vital Signs (Past 12 Hours) Vital Signs Temp Pulse Resp BP Pulse Ox 03/27/20 08:00 36.8 C 92 H 18 125/67 98 PG Care Time/CCT Total # of Minutes Spent Total Time Spent with Patient: Total time spent is greater than 50% in coordination of care (as documented) at patient's floor/unit and/or counseling patient: Coding Level of Care Code 09641 Subseq Hosp Care Lvl 3 Diagnoses Postoperative back pain G89.18 Hypertension I10 Hypertension type: essential hypertension Rash R21 Hematoma T14.8XXA Diaphoresis R61 Hypokalemia E87.6 Low testosterone R79.89 DVT prophylaxis Z29.9 (1) Hypertension Hypertension type: essential hypertension Qualified Code(s): I10 - Essential (primary) hypertension
[2020-03-27] MEDS: oxyCODONE HCL 20 MG TABCR (OxyCONTIN) PO SCH (21:16)
[2020-03-28] MEDS: oxyCODONE HCL IR 5 MG TAB (IMMEDIATE RELEASE) PO PRN (00:32)
[2020-03-28 07:55] LABS: Hematocrit (blood only) 41.6 % (42-52); Mean Corpuscular Hemoglobin 30.5 pg (25-34); Mean Corpuscular Hgb Conc 33.7 g/dL (32-36); Mean Corpuscular Volume 90.6 fL (80-100); Mean Platelet Volume 9.5 fL (7.4-10.4); Platelet Count 266 K/uL (130-400); RDW Coefficient of Variation 14.6 % (11.5-14.5); Red Blood Count 4.59 M/uL (4.7-6.1)
[2020-03-28 08:27] LABS: BUN Creatinine Ratio 17.7 (10-20); Calcium 9.2 mg/dl (8.5-10.1); Creatinine Clr Calc Pharmacy 146.5 ml/min; Est GFR (African American) 117.2; Est GFR (Non-African American) 101.1; Potassium 3.4 mmol/L (3.5-5.1)
[2020-03-28] MEDS ORDERED: POTASSIUM CHLORIDE 20 MEQ TABCR PO STA (08:42)
[2020-03-28] MEDS: oxyCODONE HCL 20 MG TABCR (OxyCONTIN) PO SCH (10:04)
[2020-03-28] MEDS: MUPIROCIN 2% OINT 22 GM TUBE EXT SCH (10:05)
[2020-03-28] MEDS: BACLOFEN 10 MG TAB PO SCH (10:05)
[2020-03-28] MEDS: TERBINAFINE CR 30 GM TUBE EXT SCH (10:05)
[2020-03-28] MEDS: GABAPENTIN 400 MG CAP PO SCH (10:05)
[2020-03-28] MEDS: METOPROLOL SUCC 50MG EXT REL TAB PO SCH (10:06)
--- NOTE | 2020-03-28 10:35 | Discharge Summary ---
Date of Service March 28, 2020 Admission HPI Per Admitting Provider Ace Tong is a 40yo C male with multiple medical problems, recent L5-S1 decompression and fusion performed by Dr. Melara on 03/17 presenting with uncontrolled pain. Reports pain began to intensify 2 days ago, minimal relief with his PO agents. Feels that his LE function has improved. Principal Diagnosis Back pain Discharge Exam Constitutional + diaphoretic Respiratory normal respiratory effort, lungs clear to auscultation Cardiovascular RRR, no murmur, no edema Gastrointestinal (Abdomen) normal bowel sounds, soft, nontender, no hepatosplenomegaly Musculoskeletal no cyanosis or clubbing, extremities motor strength 5/5 Skin large hematoma lower back, fungal rash right arm Neurologic moves all extremities and awake Psychiatric A+Ox3, euthymic affect Discharge Data Allergies Allergy/AdvReac Type Severity Reaction Status Date / Time adhesive Allergy Unknown SKIN Verified 03/23/20 11:27 IRRITATION WITH BANDAIDS topiramate [From Topamax] AdvReac Intermediate kidney Unverified 03/23/20 11:27 stones metoclopramide AdvReac Mild anxiety Verified 03/23/20 11:27 Consultations 03/23/20 22:49 ED Decision to Admit Stat 03/24/20 02:10 Consult Orthopedic Surgery Routine 03/24/20 08:56 Consult Pain Management Routine 03/27/20 14:27 Consult Dermatology Routine Ordered Studies 03/23/20 20:04 CT abd pelvis IV con only Urgent CT lumbar spine w con Urgent Hospital Course (1) Postoperative back pain: 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 -Pain management saw patient and recommended the following: Continue OxyContin 20 mg twice daily, oxycodone 10 mg every 4 hours, gabapentin 400 mg 3 times daily, lidocaine patches. Tramadol was discontinued due to lack of efficacy. Baclofen 10 mg 3 times daily No s/s of infection, afebrile, wbcs are trending down and now nearly normal from their peak of 37.5 on 03/18 though they have been about the same for the past two days at 14. Continue to trend. Blood cultures ngtd -Ortho consulted - no surgical intervention at this time -Fall precautions -PT/OT Evaluation -Bowel regimen PRN (2) Hypertension: Stable -Continue Metoprolol 100mg po BID -Monitor (3) Rash: Tinea corporis - Patient has been on quite a lot of steroids for his back and under stress from pain and surgery so certainly is immunosuppressed Continue Terbinafine Follow up with dermatology outpatient if not improving (4) Hematoma: Continue to monitor, per ortho - no intervention for now Hgb stable (5) Diaphoresis: Mr. Tong is having quite a bit of intermittent diaphoresis. Unclear etiology. BC are ngtd, he is afebrile, wbs are trending down, procal wnl. No s/s of infection. He denies any benzodiazepines or alcohol use that might be resulting in withdrawal. Possibly secondary to pain vs hormone shifts due to low testosterone? (6) Hypokalemia: Replaced (7) Low testosterone: Testosterone level checked on previous admission and very low at 21, ACTH also low at < 5. TSH was normal Discussed with endocrinology - recommends rechecking these levels when patient is past acute illness and not on as many narcotics Total Time Total Time Spent Total Time Spent (In Minutes): greater than 30 minutes Discharge Plan Discharge Items Patient Disposition: Home - Self-Care Reason For Visit: PAIN Discharge Diagnosis: Lumbar back pain, hematoma Activity: Resume your previous activity Non-emergency contact: Primary Care Provider Call non-emergency contact if: you have any medication questions and your symptoms worsen Follow-up/Referrals: Randy Kwan MD [Primary Care Provider] - (Follow up one week ) Diet: Regular Addtl Attending Provider Instructions: (1) Postoperative back pain: Per pain management: You will take OxyContin 10 mg twice daily, oxycodone 10 mg every 4 hours, gabapentin 400 mg 3 times daily (2) Rash: Tinea corporis - Continue Terbinafine twice per day for at least 9 more days but may require longer if rash has not cleared in the time. (3) Low testosterone: Please have this level rechecked when you are feeling better Pending Studies at Discharge: No Stand-Alone Forms: My [employer], Smoking Cessation Medications and DC Order Prescriptions: New terbinafine HCl 1 % Cream 1 applic EXT BID Qty: 1 RF: 0 baclofen 10 mg Tablet 10 mg PO TID PRN (Reason: muscle spasm) 30 Days Qty: 90 RF: 0 oxycodone 5 mg Tablet 10 mg PO Q4H PRN (Reason: pain) 14 Days Qty: 168 RF: 0 oxycodone [OxyContin] 20 mg Tablet,Oral Only,Ext.Rel.12 Hr 20 mg PO BID 14 Days Qty: 28 RF: 0 Continued metoprolol succinate 100 mg tablet extended release 24 hr 100 mg PO BID Qty: 60 RF: 5 lidocaine 5 % adhesive patch,medicated 1 patch transdermal QAM PRN (Reason: Pain) RF: 0 gabapentin 400 mg Capsule 400 mg PO TID Qty: 90 RF: 0 Discontinued betamethasone dipropionate 0.05 % ointment 1 appln TOP BID Qty: 15 RF: 0 mupirocin 2 % ointment 1 appln TOP BID Qty: 22 RF: 0 tramadol 50 mg tablet 50 mg PO Q6H PRN (Reason: pain, moderate) Qty: 30 RF: 0 oxycodone 5 mg tablet 5 mg PO Q4 PRN (Reason: pain, severe) Qty: 30 RF: 0 oxycodone [OxyContin] 10 mg Tablet,Oral Only,Ext.Rel.12 Hr 10 mg PO BID Qty: 28 RF: 0 Discharge Orders: Discharge Order (Routine); Ordered 03/28/20 Ordered By: Mena Kwan Admission Data Admit Date/Time: 03/24/20 00:56 Attending Provider: Eric Degroot Admit Provider: Fay Cool Primary Care Provider: Randy Kwan Other Providers: Fay Cool ; Dick Melara ; Noelle Holcomb ; [facility] Other Interventions: Discharge Summary Assessment (RN) Last Done: 03/28/20 08:00 Supervising Physician Co-Signing Physician Notes Patient seen and examined on the day of discharge. I agree with the discharge summary by Mena GARCIAS. I have reviewed the chart including labs, imaging and plans for discharge. patient is feeling better, he still has sharp shooting pain down the leg when walking but pain is controlled when laying down, sitting discussed his rash, recommend another follow up with dermatology - s/p Lumbar decompression, recurrent back pain and post op hematoma no needed to evacuate hematoma as no pressure on spinal cord pain management consulted, will increase Oxycontin to 20mg BID, continue Oyxcodone 10mg q4 PRN for pain prescribed patient two weeks of narcotics for post op perior of pain if he continues to have pain he will need to follow up with orthopedics/PCP or find pain management clinic that will manage the pain Coding Level of Care Code D/C Day Management >30 mins Diagnoses Postoperative back pain G89.18 Hypertension I10 Hypertension type: essential hypertension Rash R21 Hematoma T14.8XXA Diaphoresis R61 Hypokalemia E87.6 Low testosterone R79.89
== END 2020-03-28 12:51 | disposition home or self-care (01) ==
LOC: ED 17:45 → 3W 17:45 → SUATTDRO 03-24 00:56 → 3W 03-24 01:59
DX: R21 Rash and other nonspecific skin eruption; M54.5 Low back pain; K21.9 Gastro-esophageal reflux disease without esophagitis; I10 Essential (primary) hypertension; R79.89 Other specified abnormal findings of blood chemistry; E87.6 Hypokalemia; R61 Generalized hyperhidrosis; N40.0 Benign prostatic hyperplasia without lower urinary tract symptoms; T14.8XXA Other injury of unspecified body region, initial encounter; Z79.899 Other long term (current) drug therapy; G89.18 Other acute postprocedural pain; Z88.8 Allergy status to other drugs, medicaments and biological substances

== ENCOUNTER 2022-01-10 19:24 | Inpatient (IN) ==
[2022-01-10 19:57] LABS: Basophils # (auto) 0.04 K/uL (0-0.2); Basophils % (auto) 0.3 %; Eosinophils # (auto) 0.02 K/uL (0-0.50); Eosinophils % (auto) 0.1 %; Hematocrit (blood only) 44.7 % (40.1-51.0); Hemoglobin 15.3 g/dl (14.0-18.0); Immature Granulocytes # (auto) 0.04 K/uL (0.00-0.02); Immature Granulocytes % (auto) 0.3 %; Lymphocytes # (auto) 1.09 K/uL (1.2-3.4); Lymphocytes % (auto) 8.1 %; Mean Corpuscular Hemoglobin 29.7 pg (25.0-34.0); Mean Corpuscular Hgb Conc 34.2 g/dL (32.0-36.0); Mean Corpuscular Volume 86.8 fL (80.0-100.0); Mean Platelet Volume 11.4 fL (9.4-12.4); Monocytes # (auto) 0.97 K/uL (0.24-0.82); Monocytes % (auto) 7.2 %; Neutrophils # (auto) 11.31 K/uL (1.4-6.5); Platelet Count 239 K/uL (130-400); RDW Coefficient of Variation 13.4 % (11.5-14.5); RDW Standard Deviation 42.5 fL (36.4-46.3); Red Blood Count 5.15 M/uL (4.63-6.08); White Blood Count 13.47 K/ul (4.8-10.8)
[2022-01-10] MEDS ORDERED: SODIUM CHLORIDE 0.9% 1000ML 1,000 ML IV ONE ×2 (20:11→22:56)
[2022-01-10] MEDS ORDERED: ONDANSETRON INJ 2 MG/ML 2 ML VIAL IV STA (20:12)
[2022-01-10] MEDS ORDERED: MoRPHine SULFATE 4 MG/ML 1 ML CARP\\VIAL IV STA ×2 (20:12→22:48)
--- NOTE | 2022-01-10 20:13 | Emergency Department Note ---
Impression & Plan Hematemesis ADMIT ED Provider Note HPI: The patient is a 42-year-old male with history of neurofibromatosis, migraine disorder, endocarditis status post valve replacement in 2016, he is not on any anticoagulation, who presents to the emergency department with a chief complaint of nausea and vomiting as well as dark-colored stool that has been ongoing throughout the day today. Patient states that the vomiting started earlier today when he is driving to work, on arrival here to the ED the patient is hemodynamically stable although he is somewhat pale appearing, states he has nausea and some upper abdominal discomfort. Patient also notes that yesterday he had an issue with lower back pain, he has a history of lumbar disc disease status post fusion, states that he bent over to pick something up yesterday and felt some acute pain in the right lower back area where he is noted to have a contusion. Patient denies any blunt trauma to this area. Patient denies any history of alcohol use. Denies any history of gastritis or gastric ulcers. Patient is saturating well on room air on arrival. ROS: -GI: Nausea and vomiting, dark-colored emesis *10 point review systems was conducted and is otherwise negative unless stated above *Outpatient medications and allergy history reviewed PE: General: Alert HEENT: Normocephalic, atraumatic Eyes: Extraocular eye movement is intact, no scleral erythema Pulmonary: Clear to auscultation bilaterally, no wheezing Cardio: Regular rate and rhythm GI: Abdomen is soft, moderate tenderness over the epigastrium to palpation without guarding or rigidity : No suprapubic tenderness MSK: No evidence of trauma or malformation of the extremities, no edema Skin: No evidence of rash, contusion to the right lower flank area without any open wounds or active bleeding, no mass palpated to suggest hematoma formation Neuro: Alert, no focal deficits 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 The pulmonary arterial tree is well opacified with contrast. No pulmonary emboli are identified. The thoracic aorta is nondilated. There is no aneurysm or dissection. Previous sternotomy and mitral valvuloplasty. The heart is borderline enlarged. No pericardial effusion is seen. No mediastinal or axillary lymphadenopathy or mass is seen. Slight bronchial and interstitial prominence in the lungs could represent mild bronchitis or be due to incomplete distention. Focal consolidation is seen. No pneumothorax or pleural effusion. Limited images of the upper abdomen demonstrate a stomach distended with ingested material but nondilated. Skeletal structures are unremarkable. Radiologist: Clyde Cool MD CT ABDOMEN & PELVIS With Contrast: The liver, gallbladder, pancreas, spleen, adrenal glands, and kidneys appear within normal limits. The appendix is normal. Bowel loops are nondilated. No pneumoperitoneum, free fluid, or acute inflammatory changes are seen involving the bowel. The stomach is distended with ingested fluid but nondilated. Skeletal structures show previous fusion and laminectomy at L5-S1. Radiologist: Clyde Cool MD EKG: Rate: 100 Rhythm: Normal sinus rhythm Intervals: Within normal limits ST changes: No ST elevation Time: 1958 Medical Decision Making: The patient is a 42-year-old gentleman who presented to the emergency department with nausea and vomiting, shortly after arrival the patient did have an episode of dark-colored emesis that was fairly large volume. IV was established, lab work obtained that shows a stable hemoglobin, patient remained without tachycardia and with stable blood pressure during his evaluation here in the ED. CT imaging of the chest as well as CT imaging of the abdomen pelvis was performed, CT imaging of the chest does not show any evidence of any pulmonary emboli, no evidence of dissection, no evidence of pneumomediastinum. CT imaging of the abdomen and pelvis shows evidence of ingested fluid but no dilation. Patient did have a second episode of hematemesis shortly after return from CT imaging, he was given morphine and Zofran here in the ED and started on Protonix bolus with drip as well as octreotide bolus and drip and prophylactic ceftriaxone. He does not note any history of esophageal varices, unclear origin of his upper GI bleed at this time. His emesis was noted to be occult positive. I discussed the above findings with on-call gastroenterology, Dr. Rell Brewster, who was in agreement for consultation and at this time given the patient's hemodynamic stability and symptomatic improvement with morphine and Zofran plan will be for gastroenterology to perform an EGD tomorrow morning following my discussion with Dr. Brewster. Patient was IV fluid resuscitated and remained hemodynamically stable otherwise, repeat hemoglobin was obtained at approximately 4 hours after the patient's initial level and shows a slight down trend to 14.7 from 15.3. [facility] hospitalist service was consulted for admission and the patient was admitted in stable condition for further care and GI consultation. Type and screen was sent. * CRITICAL CARE TIME: 45min -Management of hematemesis of large volume requiring initiation of Protonix bolus and drip, octreotide bolus and drip, in addition to prophylactic IV antibiotics, time spent at the bedside, discussion with subspecialty services/gastroenterology, arrangement of admission Diagnosis: 1. Upper GI bleed, hematemesis 2. Nausea and vomiting 3. Uremia Disposition: Admission Kedar Brooks DO Emergency Medicine Past Med/Surg History Medical History Acid reflux BPH (benign prostatic hyperplasia) Chronic pain History of COVID-19 07/01/21 - body aches, n/v, sob, cough, congestion, headache, fatigue; resolved. 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 Anaya History of tonsillectomy and adenoidectomy Family History Mother Hypertension Grandfather Pancreatic cancer Aunt Diabetes Grandmother (Maternal) Diabetes Family/Other Diabetes Grandmother (Paternal) Diabetes Grandfather (Maternal) Family hx of colon cancer Other No family history of adverse response to anesthesia Social History (System 06/01/21 @ 15:45 by Marsha Hopper) Smoking Status: Never smoker Second Hand Exposure: No; Hx Alcohol Use: Yes Alcohol type: beer Hx Substance Use: Yes Substance Use Type Other:: medical marijuana -- rarely uses Preferred Language: [place] Communication Ability: Effective Visual Impairment: No Limitations Button Inspector Required: No Beliefs That Will Affect Care: None marital status: Current Living Situation: Family Current Living Situation Comment: and daughter Feels Safe at Home: Yes Assistive Devices: None Allergies Allergies Allergy/AdvReac Type Severity Reaction Status Date / Time adhesive Allergy Unknown SKIN Verified 07/20/21 06:38 IRRITATION WITH BANDAIDS topiramate [From Topamax] AdvReac Intermediate kidney Verified 07/20/21 06:38 stones metoclopramide AdvReac Mild anxiety Verified 07/20/21 06:38 Home Meds Home Medications Medication Instructions Recorded Confirmed gabapentin 100 mg capsule 100 mg PO TID 09/16/20 07/20/21 Previous Rx's Medication Instructions Recorded ondansetron HCl 4 mg tablet 4 mg PO Q8H PRN nausea and 04/01/20 (Zofran) vomiting #20 tabs carvedilol 25 mg tablet 12.5 mg PO BID #60 tabs 11/23/20 Results & Data (ED) Vital Signs Vital Signs - 24 hr 01/10/22 19:27 01/10/22 20:02 01/10/22 21:58 Temperature 36.2 C L Temperature Source Temporal Artery Scan Pulse Rate 126 H Pulse Rate [Right Finger] 104 H 96 H Respiratory Rate 20 16 16 Respiratory Effort / Characteristics Non-Labored Spontaneous Respiratory Depth Normal Blood Pressure 130/75 Blood Pressure [Right Arm] 125/87 155/127 H Blood Pressure Mean 93 Blood Pressure Mean [Right Arm] 99 136 Pulse Oximetry 97 99 95 Oxygen Delivery Method Room Air Room Air Room Air Sepsis Recent Fever Within 48 Hours No Sepsis New/Unexplained Change in Mental Status No Sepsis Action Taken by Nursing No Action Required 01/10/22 22:02 01/10/22 22:39 01/10/22 23:04 Temperature Temperature Source Pulse Rate Pulse Rate [Right Finger] 105 H 98 H 94 H Respiratory Rate 16 16 19 Respiratory Effort / Characteristics Respiratory Depth Blood Pressure Blood Pressure [Right Arm] 105/90 109/94 120/95 Blood Pressure Mean Blood Pressure Mean [Right Arm] 95 99 103 Pulse Oximetry 97 96 Oxygen Delivery Method Sepsis Recent Fever Within 48 Hours Sepsis New/Unexplained Change in Mental Status Sepsis Action Taken by Nursing Laboratory Data Result diagrams: 01/10/22 23:03 01/10/22 19:45 Lab Results 01/10/22 01/10/22 01/10/22 Range/Units 19:45 19:45 19:45 WBC 13.47 H (4.8-10.8) K/ul RBC 5.15 (4.63-6.08) M/uL Hgb 15.3 (14.0-18.0) g/dl Hct 44.7 (40.1-51.0) % MCV 86.8 (80.0-100.0) fL MCH 29.7 (25.0-34.0) pg MCHC 34.2 (32.0-36.0) g/dL RDW Std Deviation 42.5 (36.4-46.3) fL RDW Coeff of Dax 13.4 (11.5-14.5) % Plt Count 239 (130-400) K/uL MPV 11.4 (9.4-12.4) fL Immature Gran % (Auto) 0.3 % Neut % (Auto) 84.0 % Lymph % (Auto) 8.1 % [place] % (Auto) 7.2 % Eos % (Auto) 0.1 % Baso % (Auto) 0.3 % Neut # (Auto) 11.31 H (1.4-6.5) K/uL Lymph # (Auto) 1.09 L (1.2-3.4) K/uL [place] # (Auto) 0.97 H (0.24-0.82) K/uL Eos # (Auto) 0.02 (0-0.50) K/uL Baso # (Auto) 0.04 (0-0.2) K/uL Immature Gran # (Auto) 0.04 H (0.00-0.02) K/uL PT 11.5 (9.0-12.0) Seconds INR 1.1 (0.9-1.1) APTT 26.0 (21.0-31.0) Seconds PTT Ratio 0.9 Sodium 139 (136-145) mmol/L Potassium 4.1 (3.5-5.1) mmol/L Chloride 106 (98-107) mmol/L Carbon Dioxide 25 (21-32) mmol/L Anion Gap 8 (3-11) BUN 48 H (6-23) mg/dl Creatinine 0.84 (0.6-1.4) mg/dl Est Cr Clr Drug Dosing Not Reportable Est GFR ( Amer) 126.9 ml/min Est GFR (Non-Af Amer) 109.5 ml/min BUN/Creatinine Ratio 57.1 H (10-20) Glucose 115 H (70-99(Fasting)) mg/dl Calcium 8.9 (8.5-10.1) mg/dl Total Bilirubin 0.8 (0.2-1.0) mg/dl AST 10 L (13-39) U/L ALT 12 (7-52) U/L Alkaline Phosphatase 63 (34-104) U/L Troponin I High Sens (0-20) pg/ml Total Protein 6.2 (6.0-8.3) gm/dl Albumin 4.1 (3.4-5.0) gm/dl Globulin 2.1 L (2.5-4.0) gm/dl Albumin/Globulin Ratio 2.0 (0.9-2) Lipase 4 L (11-82) U/L SARS-CoV-2, RNA, NAAT (NEGATIVE) Blood Type Antibody Screen 01/10/22 01/10/22 01/10/22 Range/Units 19:53 20:56 21:59 WBC (4.8-10.8) K/ul RBC (4.63-6.08) M/uL Hgb (14.0-18.0) g/dl Hct (40.1-51.0) % MCV (80.0-100.0) fL MCH (25.0-34.0) pg MCHC (32.0-36.0) g/dL RDW Std Deviation (36.4-46.3) fL RDW Coeff of Dax (11.5-14.5) % Plt Count (130-400) K/uL MPV (9.4-12.4) fL Immature Gran % (Auto) % Neut % (Auto) % Lymph % (Auto) % [place] % (Auto) % Eos % (Auto) % Baso % (Auto) % Neut # (Auto) (1.4-6.5) K/uL Lymph # (Auto) (1.2-3.4) K/uL [place] # (Auto) (0.24-0.82) K/uL Eos # (Auto) (0-0.50) K/uL Baso # (Auto) (0-0.2) K/uL Immature Gran # (Auto) (0.00-0.02) K/uL PT (9.0-12.0) Seconds INR (0.9-1.1) APTT (21.0-31.0) Seconds PTT Ratio Sodium (136-145) mmol/L Potassium (3.5-5.1) mmol/L Chloride (98-107) mmol/L Carbon Dioxide (21-32) mmol/L Anion Gap (3-11) BUN (6-23) mg/dl Creatinine (0.6-1.4) mg/dl Est Cr Clr Drug Dosing Est GFR ( Amer) ml/min Est GFR (Non-Af Amer) ml/min BUN/Creatinine Ratio (10-20) Glucose (70-99(Fasting)) mg/dl Calcium (8.5-10.1) mg/dl Total Bilirubin (0.2-1.0) mg/dl AST (13-39) U/L ALT (7-52) U/L Alkaline Phosphatase (34-104) U/L Troponin I High Sens 4.2 (0-20) pg/ml Total Protein (6.0-8.3) gm/dl Albumin (3.4-5.0) gm/dl Globulin (2.5-4.0) gm/dl Albumin/Globulin Ratio (0.9-2) Lipase (11-82) U/L SARS-CoV-2, RNA, NAAT NEGATIVE (NEGATIVE) Blood Type O Positive Antibody Screen NEGATIVE 01/10/22 Range/Units 23:03 WBC 16.61 H (4.8-10.8) K/ul RBC 5.01 (4.63-6.08) M/uL Hgb 14.7 (14.0-18.0) g/dl Hct 44.5 (40.1-51.0) % MCV 88.8 (80.0-100.0) fL MCH 29.3 (25.0-34.0) pg MCHC 33.0 (32.0-36.0) g/dL RDW Std Deviation 43.8 (36.4-46.3) fL RDW Coeff of Dax 13.6 (11.5-14.5) % Plt Count 236 (130-400) K/uL MPV 11.4 (9.4-12.4) fL Immature Gran % (Auto) 0.5 % Neut % (Auto) 85.5 % Lymph % (Auto) 7.8 % [place] % (Auto) 5.9 % Eos % (Auto) 0.1 % Baso % (Auto) 0.2 % Neut # (Auto) 14.22 H (1.4-6.5) K/uL Lymph # (Auto) 1.29 (1.2-3.4) K/uL [place] # (Auto) 0.98 H (0.24-0.82) K/uL Eos # (Auto) 0.01 (0-0.50) K/uL Baso # (Auto) 0.03 (0-0.2) K/uL Immature Gran # (Auto) 0.08 H (0.00-0.02) K/uL PT (9.0-12.0) Seconds INR (0.9-1.1) APTT (21.0-31.0) Seconds PTT Ratio Sodium (136-145) mmol/L Potassium (3.5-5.1) mmol/L Chloride (98-107) mmol/L Carbon Dioxide (21-32) mmol/L Anion Gap (3-11) BUN (6-23) mg/dl Creatinine (0.6-1.4) mg/dl Est Cr Clr Drug Dosing Est GFR ( Amer) ml/min Est GFR (Non-Af Amer) ml/min BUN/Creatinine Ratio (10-20) Glucose (70-99(Fasting)) mg/dl Calcium (8.5-10.1) mg/dl Total Bilirubin (0.2-1.0) mg/dl AST (13-39) U/L ALT (7-52) U/L Alkaline Phosphatase (34-104) U/L Troponin I High Sens (0-20) pg/ml Total Protein (6.0-8.3) gm/dl Albumin (3.4-5.0) gm/dl Globulin (2.5-4.0) gm/dl Albumin/Globulin Ratio (0.9-2) Lipase (11-82) U/L SARS-CoV-2, RNA, NAAT (NEGATIVE) Blood Type Antibody Screen Administered Medications Pantoprazole Sodium 40 mg/ (Dextrose) 100 mls @ 20 mls/hr IV Q5H WALDEMAR Stop: 02/09/22 20:59 Last Admin: 01/10/22 21:53 Dose: 8 mg/hr, 20 mls/hr Documented By: ASW Discontinued Medications Sodium Chloride (Nss 1000ml) 1,000 mls @ 999 mls/hr IV .Q1H1M ONE Stop: 01/10/22 21:11 Last Infusion: 01/10/22 21:20 Dose: 0 mls/hr Documented By: Admin: 01/10/22 20:28 Dose: 999 mls/hr Documented By: ASW Pantoprazole Sodium (Protonix Bolus/Drip) 0 mls @ 1 mls/hr IV ONE STA Stop: 01/10/22 20:39 Last Admin: 01/10/22 21:53 Dose: Not Given Documented By: COURTNEYW Pantoprazole Sodium 80 mg/ (Dextrose) 120 mls @ 400 mls/hr IV NOW ONE Stop: 01/10/22 20:55 Last Infusion: 01/10/22 21:53 Dose: 0 mls/hr Documented By: Admin: 01/10/22 21:12 Dose: 400 mls/hr Documented By: ABHI Octreotide Acetate 100 mcg/ (Syringe) 10 mls @ 3 mls/min IV NOW STA Stop: 01/10/22 20:41 Last Admin: 01/10/22 21:12 Dose: 3 mls/min Documented By: COURTNEYW Ceftriaxone Sodium (Rocephin) 2,000 mg in 70 mls @ 140 mls/hr IV NOW STA Stop: 01/10/22 21:16 Last Infusion: 01/10/22 22:36 Dose: 0 mls/hr Documented By: Admin: 01/10/22 21:52 Dose: 140 mls/hr Documented By: COURTNEYW Promethazine HCl (Phenergan) 12.5 mg in 50.5 mls @ 202 mls/hr IV NOW STA Stop: 01/10/22 23:02 Last Admin: 01/10/22 23:01 Dose: 202 mls/hr Documented By: COURTNEYW Ioversol (Optiray 300 500ml) 114 ml IV ONCE ONE Stop: 01/10/22 21:07 Last Admin: 01/10/22 21:07 Dose: 114 ml Documented By: VIKRAM Miscellaneous (Stat Iv) 1 each N/A NOW STA Stop: 01/10/22 20:39 Last Admin: 01/10/22 21:12 Dose: Not Given Documented By: ASW Morphine Sulfate (Morphine Sulfate 4 Mg/Ml 1 Ml Carp\Vial) 4 mg IV NOW STA Stop: 01/10/22 20:13 Last Admin: 01/10/22 20:31 Dose: 4 mg Documented By: COURTNEYW Morphine Sulfate (Morphine Sulfate 4 Mg/Ml 1 Ml Carp\Vial) 4 mg IV NOW STA Stop: 01/10/22 22:49 Last Admin: 01/10/22 23:09 Dose: 4 mg Documented By: COURTNEYW Ondansetron HCl (Ondansetron Inj 2 Mg/Ml 2 Ml Vial) 4 mg IV NOW STA Stop: 01/10/22 20:13 Last Admin: 01/10/22 20:31 Dose: 4 mg Documented By: COURTNEYW Discharge Plan Visit Data Chief Complaint: Vomiting Stated Complaint: SOB, DIZZINESS ED Provider: Kedar Brooks Discharge Problem: Hematemesis Patient Disposition: Admitted As Inpatient Forms Stand Alone Forms: [facility] Prescriptions Prescriptions: No Action carvedilol 25 mg tablet 12.5 mg PO BID Qty: 60 2RF Rx Instructions: must administer with a meal/food ondansetron HCl [Zofran] 4 mg tablet 4 mg PO Q8H PRN (Reason: nausea and vomiting) Qty: 20 0RF gabapentin 100 mg capsule 100 mg PO TID Referrals Referrals: Randy Kwan MD [Primary Care Provider] -
[2022-01-10 20:24] LABS: Alanine Aminotransferase 12 U/L (7-52); Albumin Level 4.1 gm/dl (3.4-5.0); Alkaline Phosphatase 63 U/L (34-104); Anion Gap 8 (3-11); Aspartate Aminotransferase 10 U/L (13-39); BUN Creatinine Ratio 57.1 (10-20); Bilirubin,Total 0.8 mg/dl (0.2-1.0); Blood Urea Nitrogen 48 mg/dl (6-23); Calcium 8.9 mg/dl (8.5-10.1); Carbon Dioxide 25 mmol/L (21-32); Chloride 106 mmol/L (98-107); Est GFR (African American) 126.9 ml/min; Est GFR (Non-African American) 109.5 ml/min; Globulin 2.1 gm/dl (2.5-4.0); Glucose 115 mg/dl (70-99(Fasting)); Lipase 4 U/L (11-82); Potassium 4.1 mmol/L (3.5-5.1); Sodium 139 mmol/L (136-145); Total Protein 6.2 gm/dl (6.0-8.3)
[2022-01-10] MEDS ORDERED: OCTREOTIDE ACETATE 100 MCG in SYRINGE 9 ML IV STA (20:38)
[2022-01-10] MEDS ORDERED: PANTOprazole 80 MG in DEXTROSE 5% 100 ML IV ONE (20:38)
[2022-01-10] MEDS ORDERED: STAT IV STA (20:38)
[2022-01-10] MEDS ORDERED: cefTRIAXone SODIUM 2,000 MG/70 ML BAG IV STA (20:47)
[2022-01-10] MEDS ORDERED: OPTIRAY 300 500mL IV ONE (21:06)
[2022-01-10] MEDS: PANTOPRAZOLE BOLUS/DRIP 1 EACH IV STA ×2 (21:12→21:53)
[2022-01-10 21:20] LABS: INR 1.1 (0.9-1.1); Partial Thromboplastin Ratio 0.9; Prothrombin Time 11.5 Seconds (9.0-12.0)
[2022-01-10] MEDS: PANTOprazole 40 MG in DEXTROSE 5% 100 ML IV SCH (21:53)
[2022-01-10] MEDS ORDERED: PROMETHAZINE 12.5 MG/50.5 ML BAG IV STA (22:48)
[2022-01-10 23:30] LABS: Basophils # (auto) 0.03 K/uL (0-0.2); Basophils % (auto) 0.2 %; Eosinophils # (auto) 0.01 K/uL (0-0.50); Eosinophils % (auto) 0.1 %; Hematocrit (blood only) 44.5 % (40.1-51.0); Hemoglobin 14.7 g/dl (14.0-18.0); Immature Granulocytes # (auto) 0.08 K/uL (0.00-0.02); Immature Granulocytes % (auto) 0.5 %; Lymphocytes # (auto) 1.29 K/uL (1.2-3.4); Lymphocytes % (auto) 7.8 %; Mean Corpuscular Hemoglobin 29.3 pg (25.0-34.0); Mean Corpuscular Volume 88.8 fL (80.0-100.0); Mean Platelet Volume 11.4 fL (9.4-12.4); Monocytes # (auto) 0.98 K/uL (0.24-0.82); Monocytes % (auto) 5.9 %; Neutrophils # (auto) 14.22 K/uL (1.4-6.5); Neutrophils % (auto) 85.5 %; Platelet Count 236 K/uL (130-400); RDW Coefficient of Variation 13.6 % (11.5-14.5); RDW Standard Deviation 43.8 fL (36.4-46.3); Red Blood Count 5.01 M/uL (4.63-6.08); White Blood Count 16.61 K/ul (4.8-10.8)
--- NOTE | 2022-01-11 00:25 | History & Physical Report ---
Date of Service January 11, 2022 Assessment & Plan (1) Hematemesis: Plan: 42yo male with a history of endocarditis (s/p valve replacement, 2016), HTN, lumbar disc disease (s/p fusion about two weeks ago), neurofibromatosis, migraine presents with a one-day history of nausea, vomiting, and dark-colored stool. Hematemesis, melena suspected secondary to GI bleed Patient presents with a one-day history of nausea, vomiting, and dark-colored stool Vitals on arrival notable for intermittent tachycardia (to the 100s with a one-off reading of 126); BP well-controlled, no tachypnea, patient afebrile, spO2 adequate on room air Labs on arrival notable for leukocytosis (16.6); patient was without anemia, platelets wnl, no electrolyte abnormalities, LFTs not elevated, lipase not elevated Hgb stable; 15.3 on arrival, repeat four hours later 14.7 CT abdomen/pelvis: bowel loops nondilated, normal appearance of liver, gallbladder, pancreas, spleen, adrenals, kidneys, and appendix; no pneumoperitoneum, no free fluid, no acute bowel inflammatory changes; stomach distended with ingested fluid but nondilated; L5-S1 fusion/laminectomy noted CTA chest (performed in ED): no evidence of pulmonari emboli, dissection, or pneumomediastinum In the ED, patient received an octreotide bolus in addition to prophylactic ceftriaxone Per ED provider discussion with GI, plan for EGD this AM; formal GI consult placed Continue protonix IV Octreotide discontinued Overnight h/h ordered NSS @ 100mL/hr (x1 bag ordered) Trend daily CBC, BMP Back pain: continue home gabapentin HTN: continue home carvedilol FEN: NPO pending GI workup, NSS @ 100mL/hr (x1 bag ordered) Code status: full code DVT ppx: SCDs Consults: gastroenterology Dispo: PCU (2) Hypertension: (3) Neurofibromatosis: (4) Migraine: (5) Status post lumbar surgery: (6) Leukocytosis: History of Present Illness Primary Care Provider: Randy Kwan MD 42yo male with a history of endocarditis (s/p valve replacement, 2016), HTN, lumbar disc disease (s/p fusion about two weeks ago), neurofibromatosis, migraine presents with a one-day history of nausea, vomiting, and dark-colored stool. Symptoms began suddenly earlier in the day on 01/10 without clear trigger. Patient denies headache, vision changes, CP, SOB, edema, abdominal pain, dysuria, hematochezia, lightheadedness, dizziness, numbness, tingling, weakness, or other symptoms. Denies recent illness and recent travel. Upon arrival, vitals were notable for intermittent tachycardia (to the 100s with a one-off reading of 126); BP well-controlled, no tachypnea, patient afebrile, spO2 adequate on room air. Initial labs were notable for leukocytosis (16.6); patient was without anemia, platelets wnl, no electrolyte abnormalities, LFTs not elevated, lipase not elevated. Covid PCR negative. In the ED, patient was given NSS boluses (1L x2), morphine (4mg IV x2), one dose of prophylactic ceftriaxone, antiemetics, a dose of octreotide, and protonix IV. Blood cultures pending. CTA chest: no PE identified; previous sternotomy and mitral valvuloplasty noted; see report for other mild findings CT abdomen/pelvis: bowel loops nondilated, normal appearance of liver, gallbladder, pancreas, spleen, adrenals, kidneys, and appendix; no pneumoperitoneum, no free fluid, no acute bowel inflammatory changes; stomach distended with ingested fluid but nondilated; L5-S1 fusion/laminectomy noted Surrogate decision-maker in case of an emergency: none (patient declines) Allergies Allergy/AdvReac Type Severity Reaction Status Date / Time adhesive Allergy Unknown SKIN Verified 01/11/22 01:26 IRRITATION WITH BANDAIDS topiramate [From Topamax] AdvReac Intermediate kidney Verified 01/11/22 01:26 stones metoclopramide AdvReac Mild anxiety Verified 01/11/22 01:26 Home Medications Medication Instructions Recorded Confirmed Type ondansetron HCl 8 mg tablet 8 mg PO Q6 PRN Nausea 01/11/22 01/11/22 History Past Med/Surg History Medical History Acid reflux BPH (benign prostatic hyperplasia) Chronic pain History of COVID-19 07/01/21 - body aches, n/v, sob, cough, congestion, headache, fatigue; resolved. 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 Anaya History of tonsillectomy and adenoidectomy Family History Mother Hypertension Grandfather Pancreatic cancer Aunt Diabetes Grandmother (Maternal) Diabetes Family/Other Diabetes Grandmother (Paternal) Diabetes Grandfather (Maternal) Family hx of colon cancer Other No family history of adverse response to anesthesia Social History (System 06/01/21 @ 15:45 by Marsha Hopper) Smoking Status: Never smoker Second Hand Exposure: No; Hx Alcohol Use: Yes Alcohol type: beer Hx Substance Use: No Preferred Language: Azeri Communication Ability: Effective Visual Impairment: No Limitations Radio Maintainer Required: No Beliefs That Will Affect Care: None marital status: Current Living Situation: Spouse and Family Current Living Situation Comment: and daughter Feels Safe at Home: Yes Safety Concerns: Feels Safe At This Time Assistive Devices: None Physical Exam Physical Exam: Constitutional: uncomfortable-appearing, no acute distress HEENT: NCAT, no conjunctival injection, no conjunctival pallor, no scleral icterus CV: regular rhythm, no murmur appreciated, extremities well-perfused, no LE edema Resp: CTABL, no wheezes/rales/rhonchi appreciated, no increased work of breathing GI: soft, nondistended, nontender, BS normoactive Skin: warm, dry, no rash appreciated Neuro: alert, oriented, no focal neurologic deficit appreciated Results & Data Results & Data ([facility]) Vital Signs (Past 12 Hours) Vital Signs Temp Pulse Pulse Resp BP BP Pulse Ox 01/11/22 00:11 100 H 19 132/101 H 95 01/10/22 23:04 94 H 19 120/95 96 01/10/22 22:39 98 H 16 109/94 97 01/10/22 22:02 105 H 16 105/90 01/10/22 21:58 96 H 16 155/127 H 95 01/10/22 20:02 104 H 16 125/87 99 01/10/22 19:27 36.2 C L 126 H 20 130/75 97 O2 Del Method 01/11/22 00:11 01/10/22 23:04 01/10/22 22:39 01/10/22 22:02 01/10/22 21:58 Room Air 01/10/22 20:02 Room Air 01/10/22 19:27 Room Air Supervising Physician Co-Signing Physician Notes Attending addendum: I have physically seen this patient, have supervised the medical residents activities, and agree with the H&P unless as otherwise noted. Assessment and Plan: Hematemesis- Started on Protonix drip and octreotide drip by the ED Will discontinue octreotide drip at this time NPO CT suggesting Mildly distended stomach containing fluid but nondilated H&H every 6 hours NSS 100 mils per hour Reports taking Excedrin recently multiple comorbidities Consult gastroenterology Resident Activity Tracking Resident Involvement: Resident Care Provided and Backend Java Developer Coverage Note Care Provided: Adult Hospital Medicine (1) Hematemesis Nausea presence: with nausea Qualified Code(s): K92.0 - Hematemesis (2) Hypertension Hypertension type: essential hypertension Qualified Code(s): I10 - Essential (primary) hypertension
[2022-01-11 03:02] LABS: Hematocrit (blood only) 41.2 % (40.1-51.0); Hemoglobin 13.7 g/dl (14.0-18.0)
[2022-01-11] MEDS: PANTOprazole 40 MG in DEXTROSE 5% 100 ML IV SCH (03:11)
[2022-01-11] MEDS ORDERED: ACETAMINOPHEN 325 MG TAB PO PRN (03:15)
[2022-01-11] MEDS: SODIUM CHLORIDE 0.9% 1000ML 1,000 ML IV SCH ×2 (03:28→13:15)
[2022-01-11] MEDS ORDERED: PROMETHAZINE HCL 12.5 MG in SODIUM CHLORIDE 0.9% 50 ML IV STA (04:30)
[2022-01-11 06:34] LABS: Basophils # (auto) 0.01 K/uL (0-0.2); Basophils % (auto) 0.1 %; Hematocrit (blood only) 38.8 % (40.1-51.0); Immature Granulocytes # (auto) 0.02 K/uL (0.00-0.02); Immature Granulocytes % (auto) 0.2 %; Lymphocytes # (auto) 1.15 K/uL (1.2-3.4); Lymphocytes % (auto) 9.9 %; Mean Corpuscular Hemoglobin 29.6 pg (25.0-34.0); Mean Corpuscular Hgb Conc 33.5 g/dL (32.0-36.0); Mean Corpuscular Volume 88.4 fL (80.0-100.0); Mean Platelet Volume 11.6 fL (9.4-12.4); Monocytes # (auto) 0.66 K/uL (0.24-0.82); Monocytes % (auto) 5.7 %; Neutrophils # (auto) 9.81 K/uL (1.4-6.5); Neutrophils % (auto) 84.1 %; Platelet Count 215 K/uL (130-400); RDW Coefficient of Variation 13.7 % (11.5-14.5); RDW Standard Deviation 44.2 fL (36.4-46.3); Red Blood Count 4.39 M/uL (4.63-6.08); White Blood Count 11.65 K/ul (4.8-10.8)
[2022-01-11 06:57] LABS: BUN Creatinine Ratio 43.6 (10-20); Calcium 8.6 mg/dl (8.5-10.1); Creatinine Clr Calc Pharmacy 170.9 ml/min; Est GFR (African American) 130.9 ml/min; Est GFR (Non-African American) 112.9 ml/min; Potassium 4.2 mmol/L (3.5-5.1)
--- NOTE | 2022-01-11 08:32 | CT Scan Report ---
CT SCAN OF THE ABDOMEN AND PELVIS WITH IV CONTRAST CLINICAL HISTORY: Nausea and vomiting. Melanotic stool. COMPARISON STUDY: Abdominal CT dated 03/23/2020. TECHNIQUE: Following the IV administration of 114 cc of Optiray 320, CT scan of the abdomen and pelv is is performed from the lung bases to the proximal femora. Images are reviewed in the axial, sagitta l, and coronal planes. IV contrast was administered without complication. A dose lowering technique w as utilized adhering to the principles of ALARA. CT DOSE: 2096.06 mGy.cm FINDINGS: Lung bases: The patient is status post midline sternotomy and mitral valve surgery. The heart is norm al in size and without pericardial effusion. There are scattered coronary artery calcifications. The lung bases are clear. Liver: The contrast-enhanced liver is normal in size, contour, and attenuation. There is no intrahepa tic biliary ductal dilatation. The hepatic veins and portal veins are patent. Gallbladder: Unremarkable. Spleen: Normal in size and attenuation. Pancreas: Unremarkable. Adrenal glands: Unremarkable. Kidneys: The contrast enhanced kidneys are normal in size and without hydronephrosis. The kidneys enh ance symmetrically. Scattered subcentimeter cortical hypodensities likely represent cysts but are too small for definitive characterization. Abdominal vasculature: The abdominal aorta is normal in course and caliber noting mild atheroscleroti c calcification. Bowel: There are scattered colonic diverticula without CT evidence of acute diverticulitis. No bowel obstruction is seen. The appendix is well-visualized and normal. Peritoneum: There is no intraperitoneal free air or abdominal ascites. There is a small fat-containin g umbilical hernia. Lymphadenopathy: None. Pelvic viscera: The bladder, prostate, and seminal vesicles are normal as visualized. There are bilat eral fat-containing inguinal hernias, left larger than right. Skeletal structures: There is postoperative change from L5-S1 spinal fusion. No lytic or blastic lesi ons are seen. IMPRESSION: No acute infectious or inflammatory findings are identified in the abdomen or pelvis. ACT 112: Negative or not required by law. Electronically signed by: Donte Desai M.D. 01/11/2022 8:31 AM
[2022-01-11] MEDS ORDERED: ONDANSETRON INJ 2 MG/ML 2 ML VIAL ONE (08:41)
[2022-01-11] MEDS ORDERED: MoRPHine SULFATE 2 MG/ML CARP ONE (08:41)
--- NOTE | 2022-01-11 08:44 | CT Scan Report ---
CT ANGIOGRAPHY OF THE CHEST, PULMONARY EMBOLUS PROTOCOL CLINICAL HISTORY: Shortness of breath. Evaluate for pulmonary embolus. COMPARISON STUDY: Chest CT April 21, 2016. Chest radiograph April 08, 2020. TECHNIQUE: Following IV administration of 114 mL of Optiray, helical axial images of the chest were o btained utilizing the pulmonary embolus protocol. Maximal intensity projections and sagittal and cor onal reformats were viewed on an independent 3D workstation. IV contrast was administered without co mplication. Automated exposure control was utilized for the study. A dose lowering technique was ut ilized adhering to the principles of ALARA. FINDINGS: No pulmonary emboli are identified. Dilatation of the central pulmonary arteries is simila r to CT of April 21, 2016. Prosthetic mitral valve is noted. There is mild cardiomegaly. Median st ernotomy wires are noted. No thoracic aortic dissection. No thoracic lymphadenopathy. There is no con solidation to suggest pneumonia. No pneumothorax or pleural effusion is present. Mild groundglass opa cities favor atelectasis. Abdomen and pelvis CT will be reported separately. IMPRESSION: 1. No pulmonary emboli identified. 2. No acute intrathoracic findings. 3. Stable dilatation of the central pulmonary arteries. This raises the possibility of pulmonary babatunde rial hypertension. ACT 112: Negative or not required by law. Electronically signed by: Lucian Livingston M.D. 01/11/2022 8:42 AM
[2022-01-11] MEDS: carvediloL 12.5 MG TAB PO SCH ×2 (08:45→20:10)
[2022-01-11] MEDS: GABAPENTIN 100 MG CAP PO SCH ×3 (08:45→20:09)
--- NOTE | 2022-01-11 10:05 | Anesthesiology Consultation ---
Date of Service January 11, 2022 Assessment & Plan Chart Review Chart Review: Acceptable Risk for Surgery, Patient NOT seen in Pre Admission Testing and entry level software engineer initiated Consults Requested none Proposed Anesthesia Anesthesia Type: MAC Risk / Benefits Reviewed With: PT / POA / Parent / Guardian, Accepts Plan and Informed Consent Obtained History Surgery Operation Date: 01/11/22 17:30 Proposed Procedures p Esophagogastroduodenoscopy Dr Brewster - Rell Gonsales Case, DO Height/Weight Height: 6 ft 2 in Weight: 116.6 kg Allergies Allergy/AdvReac Type Severity Reaction Status Date / Time adhesive Allergy Unknown SKIN Verified 01/11/22 01:26 IRRITATION WITH BANDAIDS topiramate [From Topamax] AdvReac Intermediate kidney Verified 01/11/22 01:26 stones metoclopramide AdvReac Mild anxiety Verified 01/11/22 01:26 Medications Home Medications Medication Instructions Recorded Confirmed Last Taken ondansetron HCl 8 mg tablet 8 mg PO Q6 PRN Nausea 01/11/22 01/11/22 Unknown Active Medications Generic Name Dose Route Start Last Admin Trade Name Freq PRN Reason Stop Dose Admin Carvedilol 12.5 mg 01/11/22 09:00 01/11/22 08:45 Carvedilol 12.5 Mg Tab PO 02/10/22 08:59 12.5 mg BID WALDEMAR Administration Gabapentin 100 mg 01/11/22 09:00 01/11/22 08:45 Gabapentin 100 Mg Cap PO 02/10/22 08:59 100 mg TID WALDEMAR Administration Sodium Chloride 1,000 mls @ 100 mls/hr 01/11/22 03:15 01/11/22 03:28 Nss 1000ml IV 01/11/22 13:14 100 mls/hr .Q10H WALDEMAR Administration NPO Date Last Intake of Fluids: 01/10/22 Time Last Intake of Fluids: 08:00 Date Last Intake of Solids: 01/09/22 Time Last Intake of Solids: 18:00 Past Medical History Medical History Acid reflux BPH (benign prostatic hyperplasia) Chronic pain History of COVID-19 07/01/21 - body aches, n/v, sob, cough, congestion, headache, fatigue; resolved. 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 History of kidney stones History of TIA (transient ischemic attack) 2016 Hypertension Hypogonadotropic hypogonadism Migraine CLUSTER TYPE Neurofibromatosis Past Family History Family History Mother Hypertension Grandfather Pancreatic cancer Aunt Diabetes Grandmother (Maternal) Diabetes Family/Other Diabetes Grandmother (Paternal) Diabetes Grandfather (Maternal) Family hx of colon cancer Other No family history of adverse response to anesthesia Past Surgical History Surgical History H/O hand surgery Lt H/O knee surgery Rt H/O repair of right rotator cuff History of cardiac cath DIAGNOSTIC-2016 NO STENTS-ZANE ROJAS History of cystoscopy WITH STENT PLACEMENT X 2 History of esophagogastroduodenoscopy (EGD) History of left cataract surgery History of lumbar fusion History of mandibular surgery ORIF S/P BROKEN JAW A TEEN-FULL ROM PER PT History of mitral valve repair 2016 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 Anaya History of tonsillectomy and adenoidectomy Social History Smoking Status: Never smoker Hx Alcohol Use: Yes Alcohol type: beer alcohol intake frequency: a few times a month Hx Substance Use: No substance use type: marijuana Substance Use Type Other:: medical marijuana -- rarely uses Physical Exam Vital Signs Last Vital Signs Temp 36.9 C 01/11/22 09:58 Pulse 82 01/11/22 09:58 Resp 16 01/11/22 09:58 BP 154/90 H 01/11/22 09:58 Pulse Ox 98 01/11/22 09:58 O2 Del Method 01/11/22 09:58 Testing Laboratory Results 01/11/22 06:10 01/11/22 06:10 PT 11.5 Seconds (9.0-12.0) 01/10/22 19:45 INR 1.1 (0.9-1.1) 01/10/22 19:45 APTT 26.0 Seconds (21.0-31.0) 01/10/22 19:45 Blood Type O Positive 01/10/22 20:56 Antibody Screen NEGATIVE 01/10/22 20:56 Electrocardiogram Date: 01/10/22 Normal sinus rhythm Normal ECG When compared with ECG of 10-JUN-2019 10:55, [place] interval has decreased QRS duration has decreased
--- NOTE | 2022-01-11 10:17 | Communication Note ---
Date of Service: January 11, 2022 Admitted after midnight Attempted to check up on patient around 10:10am and patient already down for EGD. Had complaints of severe lower back pain with nausea reported and stated to RN he "knew he had a belly full of vomit". Hgb 13.7-->13.0 NPO, LR @ 100cc/hr ordered, will extend to 1.5L for now Given protonix in ER but had not been continued, ordered protonix gtt, transition per GI after EGD Asked RN to obtain UA given recent back surgery to rule out UTI as cause for n/v given recent surgery Also to obtain CT lumbar spine w/w/o to eval for infection. Pending results, consider continued abx/consultation with orthopedic spine surgery WBC trending down 16k--> 11k, afebrile. ?reactive vs infection from back. CT lumbar spine/UA as outlined. Continued inpatient stay
[2022-01-11] MEDS ORDERED: PANTOprazole 40 MG in DEXTROSE 5% 100 ML IV SCH (10:30)
[2022-01-11] MEDS ORDERED: LIDOCAINE 2% MPF LOCAL 5 ML VIAL INFIL ONE (10:40)
[2022-01-11] MEDS ORDERED: PROPOFOL IV EMULSION 10 MG/ML 20 ML VIAL IV ONE ×2 (10:40→11:19)
--- NOTE | 2022-01-11 10:50 | Gastrointestinal Consultation ---
Date of Consultation January 11, 2022 Assessment & Plan (1) Hematemesis: -Keep NPO for EGD today -Continue to monitor H/H -Continue Zofran prn -Continue IV Protonix gtt Supervising Physician Co-Signing Physician Notes Agree with ROGELIO Jimenes as above Gen: Chronic ill-appearing, NAD Chest: CTA B/L, -W/R/R CVS: RRR Abd: Soft, Tender RUQ, ND, +BS Ext: -C/C/E Continue current therapy EGD now for further evaluation History of Present Illness Reason for Consultation: Hematemesis Attending Physician: Walter Estes History of Present Illness Patient is a 42 yo male with PMH of endocarditis s/p valve replacement 2015, HTN, lumbar disc disease (s/p fusion 2 weeks ago), neurofibromatosis, & migraine. He presented to the ED due to an abrupt onset of nausea, vomiting, melena, hematemesis & coffee-ground emesis. He notes that symptoms began on 01/10/22. He notes significant NSAID use. He denies heartburn or reflux at present. He had an EGD in 1999 that showed gastritis. He notes that he had another EGD at [facility] at some point in the past decade but is unsure of when/results. Upon arrival, he was noted to be tachycardic. BP appropriate. WBC elevated at 11.65 at present. H/H 13.0/38.8. He is currently on IV Protonix therapy. CT abdomen/pelvis unremarkable. He notes he has not had further hematemesis since midnight. He notes nausea persisting. He is not on PPI therapy at home. No pertinent family history. Allergies Allergy/AdvReac Type Severity Reaction Status Date / Time adhesive Allergy Unknown SKIN Verified 01/11/22 01:26 IRRITATION WITH BANDAIDS topiramate [From Topamax] AdvReac Intermediate kidney Verified 01/11/22 01:26 stones metoclopramide AdvReac Mild anxiety Verified 01/11/22 01:26 Home Medications Medication Instructions Recorded Confirmed Type ondansetron HCl 8 mg tablet 8 mg PO Q6 PRN Nausea 01/11/22 01/11/22 History Patient History Medical History Acid reflux BPH (benign prostatic hyperplasia) Chronic pain History of COVID-19 2/3/22 - body aches, n/v, sob, cough, congestion, headache, fatigue; resolved. 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 History of kidney stones History of TIA (transient ischemic attack) 2016 Hypertension Hypogonadotropic hypogonadism Migraine CLUSTER TYPE Neurofibromatosis Surgical History H/O hand surgery Lt H/O knee surgery Rt H/O repair of right rotator cuff History of cardiac cath DIAGNOSTIC-2016 NO STENTS-ZANE ROJAS History of cystoscopy WITH STENT PLACEMENT X 2 History of esophagogastroduodenoscopy (EGD) History of left cataract surgery History of lumbar fusion History of mandibular surgery ORIF S/P BROKEN JAW A TEEN-FULL ROM PER PT History of mitral valve repair 2016 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 Anaya History of tonsillectomy and adenoidectomy Family History Mother Hypertension Grandfather Pancreatic cancer Aunt Diabetes Grandmother (Maternal) Diabetes Family/Other Diabetes Grandmother (Paternal) Diabetes Grandfather (Maternal) Family hx of colon cancer Other No family history of adverse response to anesthesia Social History (System 06/01/21 @ 15:45 by Marsha Hopper) Smoking Status: Never smoker Second Hand Exposure: No; Hx Alcohol Use: Yes Alcohol type: beer Hx Substance Use: No Preferred Language: Angolan Communication Ability: Effective Visual Impairment: No Limitations Powder Expert Required: No Beliefs That Will Affect Care: None marital status: Current Living Situation: Spouse and Family Current Living Situation Comment: and daughter Feels Safe at Home: Yes Safety Concerns: Feels Safe At This Time Assistive Devices: None Review of Systems Constitutional: no fever and no chills Respiratory: no cough and no dyspnea Cardiovascular: no chest pain Gastrointestinal: + nausea, + vomiting, + coffee ground emesis, + melena and + problem reported (hematemesis); no abdominal pain Integumentary: no problem reported Psychiatric: no problem reported Physical Exam Constitutional: well developed Respiratory: normal respiratory effort Cardiovascular: Rate/Rhythm: regular rate Gastrointestinal (Abdomen): normal bowel sounds, soft, nontender, no hepat osplenomegaly Musculoskeletal: Head/Neck/Chest: normocephalic Psychiatric: Orientation: alert and oriented x 3 Results & Data ([facility]) Vital Signs (Past 12 Hours) Vital Signs Temp Pulse Resp BP Pulse Ox O2 Del Method 01/11/22 09:58 36.9 C 82 16 154/90 H 98 Room Air 01/11/22 08:23 36.7 C 101 H 18 128/87 100 Room Air 01/11/22 03:00 Room Air 01/11/22 02:53 93 H 16 134/86 98 01/11/22 01:00 36.5 C 84 16 129/75 97 Room Air 01/11/22 00:11 100 H 19 132/101 H 95 01/10/22 23:04 94 H 19 120/95 96 PG Care Time/CCT Total # of Minutes Spent Total Time Spent with Patient: Total time spent is greater than 50% in coordination of care (as documented) at patient's floor/unit and/or counseling patient: Coding Level of Care Code 43781 Inpt Consult Level 4 Diagnoses Hematemesis K92.0
[2022-01-11] MEDS ORDERED: MIDAZOLAM HCL 1 MG/ML 2ML VIAL ONE (11:08)
--- NOTE | 2022-01-11 11:36 | GI REPORT ---
Patient Name: Ace Tong Procedure Date: 01/11/2022 10:59 AM Date of : 1980 Admit Type: Inpatient Age: 42 Gender: Male Attending MD: Rell Brewster DO Procedure: Upper GI endoscopy Providers: Rell Brewster DO Referring MD: Walter Estes Indications: Acute post hemorrhagic anemia, Hematemesis Medicines: Monitored Anesthesia Care Complications: No immediate complications. Estimated Blood Loss: Estimated blood loss: none. Procedure: Pre-Anesthesia Assessment: - Prior to the procedure, a History and Physical was performed, and patient medications and allergies were reviewed. The patient's tolerance of previous anesthesia was also reviewed. The risks and benefits of the procedure and the sedation options and risks were discussed with the patient. All questions were answered, and informed consent was obtained. Prior Anticoagulants: The patient has taken no previous anticoagulant or antiplatelet agents. ASA Grade Assessment: II - A patient with mild systemic disease. After reviewing the risks and benefits, the patient was deemed in satisfactory condition to undergo the procedure. After obtaining informed consent, the endoscope was passed under direct vision. Throughout the procedure, the patient's blood pressure, pulse, and oxygen saturations were monitored continuously. The Endoscope was introduced through the mouth, and advanced to the second part of duodenum. The upper GI endoscopy was accomplished without difficulty. The patient tolerated the procedure well. Findings: A single 10 mm mucosal nodule was found at the gastroesophageal junction, 40 cm from the incisors. Biopsies were taken with a cold forceps for histology. Two non-bleeding cratered gastric ulcers with no stigmata of bleeding were found in the gastric antrum. The largest lesion was 8 mm in largest dimension. Biopsies were taken with a cold forceps for histology. The examined duodenum was normal. Impression: - Mucosal nodule found in the esophagus. Biopsied. - Non-bleeding gastric ulcers with no stigmata of bleeding. Biopsied. - Normal examined duodenum. Recommendation: - [facility] to [facility]. - Advance diet as tolerated. - Continue present medications. - Return to primary care physician as previously scheduled. - Recommend Pantoprazole 40 mg by mouth twice daily indefinitely on discharge - Recommend Carafate 1 g by mouth 4 times daily, prior to each meal and at bedtime for 10 days. Rell Brewster DO 01/11/2022 11:35:50 AM This report has been signed electronically. Note Initiated On: 01/11/2022 10:59 AM Number of Addenda: 0 I attest to the content of the Intraoperative Record and orders documented therein, exceptions below {[id number]}
--- NOTE | 2022-01-11 11:56 | Anesthesiology Progress Note ---
Date of Service January 11, 2022 Anesthesia Post Procedure Vital Signs Vital Signs: Temp Pulse Pulse Resp BP BP Pulse Ox 01/11/22 11:47 86 16 103/62 98 01/11/22 11:36 89 16 109/62 98 01/11/22 11:24 36.9 C 103 H 16 87/46 L 98 01/11/22 09:58 36.9 C 82 16 154/90 H 98 01/11/22 08:23 36.7 C 101 H 18 128/87 100 01/11/22 03:00 01/11/22 02:53 93 H 16 134/86 98 01/11/22 01:00 36.5 C 84 16 129/75 97 01/11/22 00:11 100 H 19 132/101 H 95 01/10/22 23:04 94 H 19 120/95 96 01/10/22 22:39 98 H 16 109/94 97 01/10/22 22:02 105 H 16 105/90 01/10/22 21:58 96 H 16 155/127 H 95 01/10/22 20:02 104 H 16 125/87 99 01/10/22 19:27 36.2 C L 126 H 20 130/75 97 O2 Del Method 01/11/22 11:47 Room Air 01/11/22 11:36 Room Air 01/11/22 11:24 Room Air 01/11/22 09:58 Room Air 01/11/22 08:23 Room Air 01/11/22 03:00 Room Air 01/11/22 02:53 01/11/22 01:00 Room Air 01/11/22 00:11 01/10/22 23:04 01/10/22 22:39 01/10/22 22:02 01/10/22 21:58 Room Air 01/10/22 20:02 Room Air 01/10/22 19:27 Room Air Transfer of Care Handoff Completed per policy Notes Mental Status: alert / awake / arousable and participated in evaluation Patient Amnestic to Procedure: Yes Nausea / Vomiting: adequately controlled Pain: adequately controlled Airway Patency, RR, SpO2: stable & adequate BP & HR: stable & adequate Hydration State: stable & adequate Anesthetic Complications: no major complications apparent and Pt Satisfied with anesthetic care
[2022-01-11] MEDS ORDERED: OPTIRAY 300 100mL IV ONE (12:22)
--- NOTE | 2022-01-11 12:39 | CT Scan Report ---
CT lumbar spine w con HISTORY: Back pain. n/v, recent lumbar fusion, eval infection TECHNIQUE: Multiaxial CT images of the lumbar spine were performed following the intravenous administ ration of 93 cc of Optiray 320 and reformatted in the sagittal and coronal plane. COMPARISON STUDY: Abdomen and pelvis CT 01/10/2022. Lumbar spine CT 03/23/2020. FINDINGS: No fracture or subluxation within the lumbar spine. The sacrum appears intact. There is aga in noted L5-S1 posterior decompression fusion with pedicle screws and rods. The hardware appears inta ct. No abnormal periprosthetic lucency to suggest loosening or infection. The L5-S1 disc spacers in p lace. Remaining disc spaces are preserved. Paravertebral soft tissues are unremarkable. Suboptimal ev aluation the central canal due to the CT technique. There appears to be moderate central canal narrow ing at L4-5 due to a broad-based posterior disc bulge and ligamentum flavum and facet hypertrophy. Th ere is also moderate bilateral neural foraminal narrowing at this level. No loculated fluid collectio ns to suggest an abscess. Contrast within the bladder secondary to the recent abdomen and pelvis CT. No endplate destruction to suggest a discitis/osteomyelitis. IMPRESSION: 1. No fractures of fixation within the lumbar spine. 2. Prior L5-S1 posterior decompression and fusion with pedicle screws and rods. The hardware appears intact. 3. No abnormal periprosthetic lucency. 4. Moderate central canal and bilateral neural foraminal narrowing at L4-5 due to broad-based posteri or disc bulge and ligamentum flavum and facet hypertrophy. 5. No endplate erosive changes to suggest a discitis/osteomyelitis. ACT 112: Negative or not required by law. Electronically signed by: Espinoza Busby M.D. 01/11/2022 12:38 PM
[2022-01-11] MEDS: ACETAMINOPHEN 1000 MG/100 ML IV IV PRN (12:45)
[2022-01-11] MEDS: SUCRALFATE 1 GM/10 ML UDC PO SCH ×3 (13:15→20:09)
--- NOTE | 2022-01-11 14:47 | Electrocardiogram Report ---
Test Reason : Blood Pressure : / mmHG Vent. Rate : 100 BPM Atrial Rate : 100 BPM P-R Int : 172 ms QRS Dur : 078 ms QT Int : 328 ms P-R-T Axes : 056 067 056 degrees QTc Int : 423 ms Normal sinus rhythm Normal ECG When compared with ECG of 10-JUN-2019 10:55, MD interval has decreased QRS duration has decreased Confirmed by Mp Alberto ([id number]) on 01/11/2022 2:47:08 PM Referred By: REFERRED SELF Confirmed By:Mp Alberto
[2022-01-11] MEDS: MoRPHine SULFATE 2 MG/ML CARP IV PRN ×2 (16:01→20:14)
[2022-01-11] MEDS: PANTOprazole 40 MG in SYRINGE 0 ML IV SCH (20:08)
[2022-01-11] MEDS: ONDANSETRON INJ 2 MG/ML 2 ML VIAL IV PRN (21:06)
[2022-01-11 21:26] LABS: Appearance Urine Clear (Clear); Bilirubin Urine Negative (Negative); Blood Urine Negative (Negative); Color Urine Yellow; Glucose Urine UA Negative (Negative); Ketones Urine Negative (Negative); Leukocyte Esterase Urine Negative (Negative); Nitrite Urine Negative (Negative); Protein Urine Negative (Negative); Specific Gravity Urine > 1.045 (1.000-1.030); Urobilinogen Urine Negative (Negative); pH Urine 6.5 (4.5-7.5)
[2022-01-12] MEDS: MoRPHine SULFATE 2 MG/ML CARP IV PRN ×2 (00:36→12:23)
--- NOTE | 2022-01-12 00:45 | Billing Data ---
Date of Service January 12, 2022 Coding Level of Care Code INT OBSERVATION CARE 70M LVL 3
[2022-01-12 06:41] LABS: Basophils # (auto) 0.03 K/uL (0-0.2); Basophils % (auto) 0.5 %; Eosinophils # (auto) 0.05 K/uL (0-0.50); Eosinophils % (auto) 0.8 %; Hematocrit (blood only) 34.4 % (40.1-51.0); Hemoglobin 11.5 g/dl (14.0-18.0); Immature Granulocytes # (auto) 0.03 K/uL (0.00-0.02); Immature Granulocytes % (auto) 0.5 %; Lymphocytes # (auto) 1.28 K/uL (1.2-3.4); Lymphocytes % (auto) 20.5 %; Mean Corpuscular Hemoglobin 29.4 pg (25.0-34.0); Mean Corpuscular Hgb Conc 33.4 g/dL (32.0-36.0); Mean Platelet Volume 11.3 fL (9.4-12.4); Monocytes # (auto) 0.54 K/uL (0.24-0.82); Monocytes % (auto) 8.6 %; Neutrophils # (auto) 4.32 K/uL (1.4-6.5); Neutrophils % (auto) 69.1 %; Platelet Count 178 K/uL (130-400); RDW Coefficient of Variation 13.6 % (11.5-14.5); RDW Standard Deviation 43.9 fL (36.4-46.3); Red Blood Count 3.91 M/uL (4.63-6.08); White Blood Count 6.25 K/ul (4.8-10.8)
[2022-01-12 07:00] LABS: Albumin Level 3.4 gm/dl (3.4-5.0); BUN Creatinine Ratio 28.6 (10-20); Bilirubin,Total 0.7 mg/dl (0.2-1.0); Calcium 8.4 mg/dl (8.5-10.1); Creatinine Clr Calc Pharmacy 158.2 ml/min; Est GFR (African American) 126.9 ml/min; Est GFR (Non-African American) 109.5 ml/min; Globulin 1.7 gm/dl (2.5-4.0); Magnesium 1.9 mg/dl (1.7-2.4); Potassium 3.5 mmol/L (3.5-5.1); Total Protein 5.1 gm/dl (6.0-8.3)
[2022-01-12] MEDS: carvediloL 12.5 MG TAB PO SCH ×2 (08:13→20:34)
[2022-01-12] MEDS: PANTOprazole 40 MG in SYRINGE 0 ML IV SCH (08:13)
[2022-01-12] MEDS: SUCRALFATE 1 GM/10 ML UDC PO SCH ×4 (08:13→20:32)
[2022-01-12] MEDS: GABAPENTIN 100 MG CAP PO SCH ×3 (08:13→20:34)
[2022-01-12] MEDS: ACETAMINOPHEN 1000 MG/100 ML IV IV PRN (08:15)
[2022-01-12] MEDS: ONDANSETRON INJ 2 MG/ML 2 ML VIAL IV PRN (08:15)
--- NOTE | 2022-01-12 08:26 | Hospitalist Progress Note ---
Date of Service January 12, 2022 Assessment & Plan (1) Hematemesis: Plan: 42yo male with a history of endocarditis (s/p valve replacement, 2016), HTN, lumbar disc disease (s/p fusion about two weeks ago), neurofibromatosis, migraine presents with a one-day history of nausea, vomiting, and dark-colored stool and hematemesis x 1 GI BLEED Patient with history of chronic back pain with hx lumbar fusion and recent shoulder surgery earlier this year, admits to taking NSAIDs 600mg at least once daily if not multiple times daily CTA negative for PE CTAP with nondilated bowel loops, stomach distended with ingested fluid but nondilated GI consulted s/p EGD with Dr Brewster on 01/12 * Single 10mm mucosal nodule found at [facility], biopsies taken. * Two non-bleeding cratered gastric ulcers with no stigmata of bleeding found in gastic antrum. Largest lesion was 8mm in dimension. Bxd Protonix IV BID transitioned to PO BID - continue indefinitely Carafate added QID and continue at discharge WBC trending down, likely reactive from n/v. Afebrile Hgb stable on repeat, no further bleeding reported Antiemetics --continued nausea/lack of appetite --Ordered zofran but reports better relief with phergan. Ordered and asked RN to admin dose x 1 Pain control - IV tylenol switched to PO - IV morphine switched to PO oxycodone but attempt to limit use given prior hx abuse BOwel regimen - Senna/docusate added for bowel regimen, miralax prn. Ambulation encouraged Will order 500cc NSS @ 80cc/hr given poor PO intake, continue full liquids for now. Changed to full admit, continued inpatient stay F/u GI outpatient for biopsy results -- in pt w/ hx neurofibromatosis, ?underlying malignancy (2) Hypertension: Plan: Continue home carvedilol BID, however review of medications without recent medications sent Previously on multiple agents, carvedilol started by Dr Kwan with goal of up titrating Will help arrange f/u Appt (3) Neurofibromatosis: Plan: should have f/u Endocrinology will ask CM to arrange (4) Migraine: Plan: hx of such none reported currently Tylenol available prn (5) Status post lumbar surgery: Plan: on admit reported ~ 2weeks ago --> actually was done in 2019, Dr Melara CT lumbar spine with hardware intact but show moderate central canal and bilateral neural foraminal narrowing at L4-L5 due to broad-based posterior disc bulge Avoiding NSAIDs obviously given above, pain control ordered by switched to PO. No steroids given increased risk for bleeding/ulcers given admit with GIB Consulted Dr Melara to weigh in in the morning but given acute GI bleeding suspect outpt f/u Continue gabapentin for now -- had leftover from prior surgery. Needs f/u PCP for new rx Prior reports for medication misuse, would not send rx at dc, instead working on getting f/u PCP (6) Leukocytosis: Plan: likely reactive from n/v/GI bleed resolved on repeat and will monitor for any fevers (7) Hematemesis: (8) Lumbar back pain with radiculopathy affecting right lower extremity: (9) Bulging of lumbar intervertebral disc: Plan continued inpatient stay Admission and Anticipated Discharge Date Admission Date: January 11, 2022 Supervising Physician Co-Signing Physician Notes Attending Attestation - Chart reviewed, care plan d/w ROBERT Rios. I agree w/ the moncada components of her documentation. Walter Estes MD Subjective Evaluated this morning. Nauseated -- zofran on board but phenergan more effective. Having increased back pain and right flank pain. CT lumbar spine obtained given prior reports of recent surgery, however patient states this was not recent (healed scar) and done by Dr Melara however he had injury with lifting his daughter last week and bending and heard a pop on his right lower side and now has ecchymosis to this area. Denies any trauma/falls at home. Pain with inspiration and taking a deep breath. Did endorse forceful vomiting prior to admit, could be cause. CTA negative for PE on admit. Followed with pain management in past but hasn't seen in 5 years. Discussed limiting IV pain medication, can order PO but limit and titrate off. Gabapentin leftover from prior rx and was to ask Dr Kwan who supposedly fills his carvedilol for a new rx in follow up. Inquiring about timing to d/c. Discussed could go today as hgb stable if no further bleeding but given concerns will address and monitor overnight with possible dc in am. Did endorse daily NSAID use at least 600mg once a day but could be several times a day at home. Discussed would avoid NSAIDs given EGD findings and likely underlying culprit. Questions/concerns addressed at this time. Review of Systems Review of Systems: All systems reviewed & are unremarkable except as noted in HPI & below Physical Exam Physical Exam: General: WN/WD male sitting up in bed, NAD but reported nausea and pain to his right hip/right lower back HEENT: head normocephalic, atraumatic, mmm, trachea midline without deviation, mmm Resp: CTAB, no w/c/r, 97% on RA CV: RRR, +murmur, no rub/gallop, calves nontender and pulses palpable bilaterall y GI: +BS throughout, +tenderness to epigastric region, no guarding or rigidity or peritoneal signs : no diaz MSK/Neuro: moves all extremities, no focal deficits prior lumbar incision well healed RIGHT hip with ecchymosis, tenderness to palpation strength intact and equal b/l LE against resistance Skin: warm, dry, well perfused Results & Data Results & Data ([facility]) Vital Signs (Past 12 Hours) Vital Signs Temp Pulse Pulse Resp BP BP Pulse Ox 01/12/22 07:38 36.9 C 88 18 118/80 97 01/12/22 04:45 36.6 C 87 16 121/79 97 01/12/22 03:08 98 H 01/11/22 23:23 36.7 C 84 16 131/80 98 O2 Del Method 01/12/22 07:38 Room Air 01/12/22 04:45 Room Air 01/12/22 03:08 01/11/22 23:23 Room Air Laboratory Results 01/12/22 01/12/22 01/11/22 Range/Units 06:03 06:03 Unknown WBC 6.25 (4.8-10.8) K/ul RBC 3.91 L (4.63-6.08) M/uL Hgb 11.5 L (14.0-18.0) g/dl Hct 34.4 L (40.1-51.0) % MCV 88.0 (80.0-100.0) fL MCH 29.4 (25.0-34.0) pg MCHC 33.4 (32.0-36.0) g/dL RDW Std Deviation 43.9 (36.4-46.3) fL RDW Coeff of Dax 13.6 (11.5-14.5) % Plt Count 178 (130-400) K/uL MPV 11.3 (9.4-12.4) fL Immature Gran % (Auto) 0.5 % Neut % (Auto) 69.1 % Lymph % (Auto) 20.5 % [place] % (Auto) 8.6 % Eos % (Auto) 0.8 % Baso % (Auto) 0.5 % Neut # (Auto) 4.32 (1.4-6.5) K/uL Lymph # (Auto) 1.28 (1.2-3.4) K/uL [place] # (Auto) 0.54 (0.24-0.82) K/uL Eos # (Auto) 0.05 (0-0.50) K/uL Baso # (Auto) 0.03 (0-0.2) K/uL Immature Gran # (Auto) 0.03 H (0.00-0.02) K/uL Sodium 138 (136-145) mmol/L Potassium 3.5 (3.5-5.1) mmol/L Chloride 107 (98-107) mmol/L Carbon Dioxide 28 (21-32) mmol/L Anion Gap 3 (3-11) BUN 24 H (6-23) mg/dl Creatinine 0.84 (0.6-1.4) mg/dl Est Cr Clr Drug Dosing 158.2 ml/min Est GFR ( Amer) 126.9 ml/min Est GFR (Non-Af Amer) 109.5 ml/min BUN/Creatinine Ratio 28.6 H (10-20) Glucose 83 (70-99(Fasting)) mg/dl Calcium 8.4 L (8.5-10.1) mg/dl Magnesium 1.9 (1.7-2.4) mg/dl Total Bilirubin 0.7 (0.2-1.0) mg/dl AST 10 L (13-39) U/L ALT 11 (7-52) U/L Alkaline Phosphatase 49 (34-104) U/L Total Protein 5.1 L (6.0-8.3) gm/dl Albumin 3.4 (3.4-5.0) gm/dl Globulin 1.7 L (2.5-4.0) gm/dl Albumin/Globulin Ratio 2.0 (0.9-2) Urine Color Yellow Urine Appearance Clear (Clear) Urine pH 6.5 (4.5-7.5) Ur Specific [place] > 1.045 H (1.000-1.030) Urine Protein Negative (Negative) Urine Glucose (UA) Negative (Negative) Urine Ketones Negative (Negative) Urine Blood Negative (Negative) Urine Nitrite Negative (Negative) Urine Bilirubin Negative (Negative) Urine Urobilinogen Negative (Negative) Ur Leukocyte Esterase Negative (Negative) Diagnostic Findings Abdomen/Pelvis CT 01/10/22 20:10 CT SCAN OF THE ABDOMEN AND PELVIS WITH IV CONTRAST CLINICAL HISTORY: Nausea and vomiting. Melanotic stool. COMPARISON STUDY: Abdominal CT dated 03/23/2020. TECHNIQUE: Following the IV administration of 114 cc of Optiray 320, CT scan of the abdomen and pelvis is performed from the lung bases to the proximal femora. Images are reviewed in the axial, sagittal, and coronal planes. IV contrast was administered without complication. A dose lowering technique was utilized adhering to the principles of ALARA. CT DOSE: 2096.06 mGy.cm FINDINGS: Lung bases: The patient is status post midline sternotomy and mitral valve surgery. The heart is normal in size and without pericardial effusion. There are scattered coronary artery calcifications. The lung bases are clear. Liver: The contrast-enhanced liver is normal in size, contour, and attenuation. There is no intrahepatic biliary ductal dilatation. The hepatic veins and portal veins are patent. Gallbladder: Unremarkable. Spleen: Normal in size and attenuation. Pancreas: Unremarkable. Adrenal glands: Unremarkable. Kidneys: The contrast enhanced kidneys are normal in size and without hydronephrosis. The kidneys enhance symmetrically. Scattered subcentimeter cortical hypodensities likely represent cysts but are too small for definitive characterization. Abdominal vasculature: The abdominal aorta is normal in course and caliber noting mild atherosclerotic calcification. Bowel: There are scattered colonic diverticula without CT evidence of acute diverticulitis. No bowel obstruction is seen. The appendix is well-visualized and normal. Peritoneum: There is no intraperitoneal free air or abdominal ascites. There is a small fat-containing umbilical hernia. Lymphadenopathy: None. Pelvic viscera: The bladder, prostate, and seminal vesicles are normal as visualized. There are bilateral fat-containing inguinal hernias, left larger than right. Skeletal structures: There is postoperative change from L5-S1 spinal fusion. No lytic or blastic lesions are seen. IMPRESSION: No acute infectious or inflammatory findings are identified in the abdomen or pelvis. ACT 112: Negative or not required by law. Electronically signed by: Donte Desai M.D. 01/11/2022 8:31 AM Chest CTA 01/10/22 20:20 CT ANGIOGRAPHY OF THE CHEST, PULMONARY EMBOLUS PROTOCOL CLINICAL HISTORY: Shortness of breath. Evaluate for pulmonary embolus. COMPARISON STUDY: Chest CT April 21, 2016. Chest radiograph April 08, 2020. TECHNIQUE: Following IV administration of 114 mL of Optiray, helical axial images of the chest were obtained utilizing the pulmonary embolus protocol. Maximal intensity projections and sagittal and coronal reformats were viewed on an independent 3D workstation. IV contrast was administered without complication. Automated exposure control was utilized for the study. A dose lowering technique was utilized adhering to the principles of ALARA. FINDINGS: No pulmonary emboli are identified. Dilatation of the central pulmonary arteries is similar to CT of April 21, 2016. Prosthetic mitral valve is noted. There is mild cardiomegaly. Median sternotomy wires are noted. No thoracic aortic dissection. No thoracic lymphadenopathy. There is no consolidation to suggest pneumonia. No pneumothorax or pleural effusion is present. Mild groundglass opacities favor atelectasis. Abdomen and pelvis CT will be reported separately. IMPRESSION: 1. No pulmonary emboli identified. 2. No acute intrathoracic findings. 3. Stable dilatation of the central pulmonary arteries. This raises the possibility of pulmonary arterial hypertension. ACT 112: Negative or not required by law. Electronically signed by: Lucian Livingston M.D. 01/11/2022 8:[address] 01/11/22 09:56 CT lumbar spine w con HISTORY: Back pain. n/v, recent lumbar fusion, eval infection TECHNIQUE: Multiaxial CT images of the lumbar spine were performed following the intravenous administration of 93 cc of Optiray 320 and reformatted in the sagittal and coronal plane. COMPARISON STUDY: Abdomen and pelvis CT 01/10/2022. Lumbar spine CT 03/23/2020. FINDINGS: No fracture or subluxation within the lumbar spine. The sacrum appears intact. There is again noted L5-S1 posterior decompression fusion with pedicle screws and rods. The hardware appears intact. No abnormal periprosthetic lucency to suggest loosening or infection. The L5-S1 disc spacers in place. Remaining disc spaces are preserved. Paravertebral soft tissues are unremarkable. Suboptimal evaluation the central canal due to the CT technique. There appears to be moderate central canal narrowing at L4-5 due to a broad-based posterior disc bulge and ligamentum flavum and facet hypertrophy. There is also moderate bilateral neural foraminal narrowing at this level. No loculated fluid collections to suggest an abscess. Contrast within the bladder secondary to the recent abdomen and pelvis CT. No endplate destruction to suggest a discitis/osteomyelitis. IMPRESSION: 1. No fractures of fixation within the lumbar spine. 2. Prior L5-S1 posterior decompression and fusion with pedicle screws and rods. The hardware appears intact. 3. No abnormal periprosthetic lucency. 4. Moderate central canal and bilateral neural foraminal narrowing at L4-5 due to broad-based posterior disc bulge and ligamentum flavum and facet hypertrophy. 5. No endplate erosive changes to suggest a discitis/osteomyelitis. ACT 112: Negative or not required by law. Electronically signed by: Espinoza Busby M.D. 01/11/2022 12:[address] 01/12/22 12:48 CT OF THE RIGHT HIP WITHOUT CONTRAST CLINICAL HISTORY: Right hip pain, ecchymosis, no reported fall COMPARISON STUDY: CT of the abdomen and pelvis January 10, 2022. TECHNIQUE: Axial images of the right hip were obtained without IV contrast. Sagittal and coronal reconstructions were viewed. Automated exposure control was utilized for the study. A dose lowering technique was utilized adhering to the principles of ALARA FINDINGS: Alignment of the right hip is anatomic. There is no fracture. A few bone islands within the right femur are noted. No suspicious osseous lesions are present. There is no evidence for avascular necrosis of the right femoral head. Right hip joint space is preserved. There is minimal osteophytosis of the right hip. Adjacent soft tissues are unremarkable. Visualized portions of the right hemipelvis are unremarkable. IMPRESSION: 1. No acute fracture within the right hip. No acute process by CT. 2. Mild degenerative changes of the right hip. ACT 112: Negative or not required by law. Electronically signed by: Lucian Livingston M.D. 01/12/2022 2:48 PM PG Care Time/CCT Total # of Minutes Spent Total Time Spent with Patient: Total time spent is greater than 50% in coordination of care (as documented) at patient's floor/unit and/or counseling patient: Coding Level of Care Code 40682 Subseq Hosp Care Lvl 3 Diagnoses Hematemesis K92.0 Nausea presence: with nausea Hypertension I10 Hypertension type: essential hypertension Neurofibromatosis Q85.00 Migraine G43.909 Status post lumbar surgery Z98.890 Leukocytosis D72.829 Hematemesis K92.0 Lumbar back pain with radiculopathy affecting right lower extremity M54.16 Bulging of lumbar intervertebral disc M51.26 (1) Hematemesis Nausea presence: with nausea Qualified Code(s): K92.0 - Hematemesis (2) Hypertension Hypertension type: essential hypertension Qualified Code(s): I10 - Essential (primary) hypertension
--- NOTE | 2022-01-12 10:04 | Communication Note ---
Date of Service: January 12, 2022 Coordination of Care Note: Patient underwent an EGD on 01/11/22 that indicated a mucosal esophageal nodule and non bleeding gastric ulcers. At the present time, we do not have further inpatient GI plans, however we will be in communication with patient regarding his biopsy results. At the time of discharge, we would advise Protonix 40 mg BID and Carafate 1 gm four times daily before meals and bedtime (crush tablet & mix with 15 mL water). Our office will contact him to schedule a follow-up appointment in 8 weeks.
[2022-01-12] MEDS ORDERED: PROMETHAZINE HCL 6.25 MG in SODIUM CHLORIDE 0.9% 50 ML IV PRN (12:48)
--- NOTE | 2022-01-12 14:49 | CT Scan Report ---
CT OF THE RIGHT HIP WITHOUT CONTRAST CLINICAL HISTORY: Right hip pain, ecchymosis, no reported fall COMPARISON STUDY: CT of the abdomen and pelvis January 10, 2022. TECHNIQUE: Axial images of the right hip were obtained without IV contrast. Sagittal and coronal cass nstructions were viewed. Automated exposure control was utilized for the study. A dose lowering tech nique was utilized adhering to the principles of ALARA FINDINGS: Alignment of the right hip is anatomic. There is no fracture. A few bone islands within the right femur are noted. No suspicious osseous lesions are present. There is no evidence for avascular necrosis of the right femoral head. Right hip joint space is preserved. There is minimal osteophytos is of the right hip. Adjacent soft tissues are unremarkable. Visualized portions of the right hemipel vis are unremarkable. IMPRESSION: 1. No acute fracture within the right hip. No acute process by CT. 2. Mild degenerative changes of the right hip. ACT 112: Negative or not required by law. Electronically signed by: Lucian Livingston M.D. 01/12/2022 2:48 PM
[2022-01-12] MEDS ORDERED: POLYETHYLENE (MIRALAX) 17 GM PACK PO PRN (16:45)
[2022-01-12] MEDS ORDERED: SODIUM CHLORIDE 0.9% 500 ML IV SCH (17:00)
[2022-01-12] MEDS: oxyCODONE HCL IR 5 MG TAB (IMMEDIATE RELEASE) PO PRN ×2 (17:42→23:39)
[2022-01-12] MEDS: DOCUSATE SODIUM/SENNA 50/8.6MG TAB PO SCH (17:42)
[2022-01-12] MEDS: PANTOprazole 40 MG TAB PO SCH (20:33)
[2022-01-13 05:10] LABS: Hematocrit (blood only) 34.4 % (40.1-51.0); Hemoglobin 11.7 g/dl (14.0-18.0); Mean Corpuscular Hemoglobin 29.5 pg (25.0-34.0); Mean Corpuscular Volume 86.9 fL (80.0-100.0); Mean Platelet Volume 11.2 fL (9.4-12.4); Platelet Count 180 K/uL (130-400); RDW Coefficient of Variation 13.2 % (11.5-14.5); RDW Standard Deviation 41.6 fL (36.4-46.3); Red Blood Count 3.96 M/uL (4.63-6.08); White Blood Count 7.88 K/ul (4.8-10.8)
[2022-01-13 05:34] LABS: Albumin Globulin Ratio 2.2 (0.9-2); Albumin Level 3.7 gm/dl (3.4-5.0); BUN Creatinine Ratio 18.2 (10-20); Bilirubin,Total 0.9 mg/dl (0.2-1.0); Calcium 8.8 mg/dl (8.5-10.1); Creatinine Clr Calc Pharmacy 172.2 ml/min; Est GFR (African American) 131.6 ml/min; Est GFR (Non-African American) 113.5 ml/min; Globulin 1.7 gm/dl (2.5-4.0); Magnesium 1.9 mg/dl (1.7-2.4); Potassium 3.4 mmol/L (3.5-5.1); Total Protein 5.4 gm/dl (6.0-8.3)
--- NOTE | 2022-01-13 07:30 | Hospitalist Progress Note ---
Date of Service January 13, 2022 Assessment & Plan (1) Hematemesis: Plan: 42yo male with a history of endocarditis (s/p valve replacement, 2016), HTN, lumbar disc disease (s/p fusion about two weeks ago), neurofibromatosis, migraine presents with a one-day history of nausea, vomiting, and dark-colored stool and hematemesis x 1 GI BLEED Patient with history of chronic back pain with hx lumbar fusion and recent shoulder surgery earlier this year, admits to taking NSAIDs 600mg at least once daily if not multiple times daily CTA negative for PE CTAP with nondilated bowel loops, stomach distended with ingested fluid but nondilated GI consulted s/p EGD with Dr Brewster on 01/12 * Single 10mm mucosal nodule found at [facility], biopsies taken. * Two non-bleeding cratered gastric ulcers with no stigmata of bleeding found in gastic antrum. Largest lesion was 8mm in dimension. Bxd Protonix IV BID transitioned to PO BID - continue indefinitely Carafate added QID and continue at discharge WBC trending down, likely reactive from n/v. Afebrile Hgb stable on repeat, no further bleeding reported Antiemetics --continued nausea/lack of appetite --Ordered zofran but reports better relief with phergan. Ordered and asked RN to admin dose x 1 Pain control - IV tylenol switched to PO - IV morphine switched to PO oxycodone but attempt to limit use given prior hx abuse BOwel regimen - Senna/docusate added for bowel regimen, miralax prn. Ambulation encouraged Will order 500cc NSS @ 80cc/hr given poor PO intake, continue full liquids for now. Changed to full admit, continued inpatient stay F/u GI outpatient for biopsy results -- in pt w/ hx neurofibromatosis, ?underlying malignancy (2) Hypertension: Plan: Continue home carvedilol BID, however review of medications without recent medications sent Previously on multiple agents, carvedilol started by Dr Kwan with goal of up titrating Will help arrange f/u Appt (3) Neurofibromatosis: Plan: should have f/u Endocrinology will ask CM to arrange (4) Migraine: Plan: hx of such none reported currently Tylenol available prn (5) Status post lumbar surgery: Plan: on admit reported ~ 2weeks ago --> actually was done in 2019, Dr Melara CT lumbar spine with hardware intact but show moderate central canal and bilateral neural foraminal narrowing at L4-L5 due to broad-based posterior disc bulge Avoiding NSAIDs obviously given above, pain control ordered by switched to PO. No steroids given increased risk for bleeding/ulcers given admit with GIB Consulted Dr Melara to weigh in in the morning but given acute GI bleeding suspect outpt f/u Continue gabapentin for now -- had leftover from prior surgery. Needs f/u PCP for new rx Prior reports for medication misuse, [facility] not [facility], instead working on getting f/u PCP (6) Leukocytosis: Plan: likely reactive from n/v/GI bleed resolved on repeat and will monitor for any fevers (7) Lumbar back pain with radiculopathy affecting right lower extremity: (8) Bulging of lumbar intervertebral disc: Plan continued inpatient stay Admission and Anticipated Discharge Date Admission Date: January 12, 2022 Results & Data Results & Data ([facility]) Vital Signs (Past 12 Hours) Vital Signs Temp Pulse Pulse Resp BP Pulse Ox O2 Del Method 01/13/22 04:00 36.4 C L 83 18 125/83 99 Room Air 01/12/22 23:50 85 01/12/22 23:07 36.9 C 83 18 121/75 99 Room Air 01/12/22 19:41 36.9 C 82 18 129/84 100 Room Air Laboratory Results 01/13/22 01/13/22 Range/Units 04:38 04:38 WBC 7.88 (4.8-10.8) K/ul RBC 3.96 L (4.63-6.08) M/uL Hgb 11.7 L (14.0-18.0) g/dl Hct 34.4 L (40.1-51.0) % MCV 86.9 (80.0-100.0) fL MCH 29.5 (25.0-34.0) pg MCHC 34.0 (32.0-36.0) g/dL RDW Std Deviation 41.6 (36.4-46.3) fL RDW Coeff of Dax 13.2 (11.5-14.5) % Plt Count 180 (130-400) K/uL MPV 11.2 (9.4-12.4) fL Sodium 138 (136-145) mmol/L Potassium 3.4 L (3.5-5.1) mmol/L Chloride 106 (98-107) mmol/L Carbon Dioxide 27 (21-32) mmol/L Anion Gap 5 (3-11) BUN 14 (6-23) mg/dl Creatinine 0.77 (0.6-1.4) mg/dl Est Cr Clr Drug Dosing 172.2 ml/min Est GFR ( Amer) 131.6 ml/min Est GFR (Non-Af Amer) 113.5 ml/min BUN/Creatinine Ratio 18.2 (10-20) Glucose 85 (70-99(Fasting)) mg/dl Calcium 8.8 (8.5-10.1) mg/dl Magnesium 1.9 (1.7-2.4) mg/dl Total Bilirubin 0.9 (0.2-1.0) mg/dl AST 9 L (13-39) U/L ALT 9 (7-52) U/L Alkaline Phosphatase 52 (34-104) U/L Total Protein 5.4 L (6.0-8.3) gm/dl Albumin 3.7 (3.4-5.0) gm/dl Globulin 1.7 L (2.5-4.0) gm/dl Albumin/Globulin Ratio 2.2 H (0.9-2) Diagnostic Findings Hip CT 01/12/22 12:48 CT OF THE RIGHT HIP WITHOUT CONTRAST CLINICAL HISTORY: Right hip pain, ecchymosis, no reported fall COMPARISON STUDY: CT of the abdomen and pelvis January 10, 2022. TECHNIQUE: Axial images of the right hip were obtained without IV contrast. Sagittal and coronal reconstructions were viewed. Automated exposure control was utilized for the study. A dose lowering technique was utilized adhering to the principles of ALARA FINDINGS: Alignment of the right hip is anatomic. There is no fracture. A few bone islands within the right femur are noted. No suspicious osseous lesions are present. There is no evidence for avascular necrosis of the right femoral head. Right hip joint space is preserved. There is minimal osteophytosis of the right hip. Adjacent soft tissues are unremarkable. Visualized portions of the right hemipelvis are unremarkable. IMPRESSION: 1. No acute fracture within the right hip. No acute process by CT. 2. Mild degenerative changes of the right hip. ACT 112: Negative or not required by law. Electronically signed by: Lucian Livingston M.D. 01/12/2022 2:48 PM PG Care Time/CCT Total # of Minutes Spent Total Time Spent with Patient: Total time spent is greater than 50% in coordination of care (as documented) at patient's floor/unit and/or counseling patient: Coding Diagnoses Hematemesis K92.0 Nausea presence: with nausea Hypertension I10 Hypertension type: essential hypertension Neurofibromatosis Q85.00 Migraine G43.909 Status post lumbar surgery Z98.890 Leukocytosis D72.829 Lumbar back pain with radiculopathy affecting right lower extremity M54.16 Bulging of lumbar intervertebral disc M51.26 (1) Hematemesis Nausea presence: with nausea Qualified Code(s): K92.0 - Hematemesis (2) Hypertension Hypertension type: essential hypertension Qualified Code(s): I10 - Essential (primary) hypertension
[2022-01-13] MEDS: PANTOprazole 40 MG TAB PO SCH (08:19)
[2022-01-13] MEDS: GABAPENTIN 100 MG CAP PO SCH ×2 (08:20→13:15)
[2022-01-13] MEDS: carvediloL 12.5 MG TAB PO SCH (08:20)
[2022-01-13] MEDS: SUCRALFATE 1 GM/10 ML UDC PO SCH ×3 (08:21→16:59)
[2022-01-13] MEDS: DOCUSATE SODIUM/SENNA 50/8.6MG TAB PO SCH (08:21)
[2022-01-13] MEDS ORDERED: POTASSIUM CHLORIDE CRTAB 20 MEQ TABCR PO SCH (09:00)
--- NOTE | 2022-01-13 13:15 | XCELERA ---
[id number] \\[id number]
--- NOTE | 2022-01-13 13:22 | Discharge Summary ---
Date of Service January 13, 2022 Admission HPI Per Admitting Provider Primary Care Provider: Randy Kwan MD 42yo male with a history of endocarditis (s/p valve replacement, 2016), HTN, lumbar disc disease (s/p fusion about two weeks ago), neurofibromatosis, migraine presents with a one-day history of nausea, vomiting, and dark-colored stool. Symptoms began suddenly earlier in the day on 01/10 without clear trigger. Patient denies headache, vision changes, CP, SOB, edema, abdominal pain, dysuria, hematochezia, lightheadedness, dizziness, numbness, tingling, weakness, or other symptoms. Denies recent illness and recent travel. Upon arrival, vitals were notable for intermittent tachycardia (to the 100s with a one-off reading of 126); BP well-controlled, no tachypnea, patient afebrile, spO2 adequate on room air. Initial labs were notable for leukocytosis (16.6); patient was without anemia, platelets wnl, no electrolyte abnormalities, LFTs not elevated, lipase not elevated. Covid PCR negative. In the ED, patient was given NSS boluses (1L x2), morphine (4mg IV x2), one dose of prophylactic ceftriaxone, antiemetics, a dose of octreotide, and protonix IV. Blood cultures pending. CTA chest: no PE identified; previous sternotomy and mitral valvuloplasty noted; see report for other mild findings CT abdomen/pelvis: bowel loops nondilated, normal appearance of liver, gallbladder, pancreas, spleen, adrenals, kidneys, and appendix; no pneumoperitoneum, no free fluid, no acute bowel inflammatory changes; stomach distended with ingested fluid but nondilated; L5-S1 fusion/laminectomy noted Surrogate decision-maker in case of an emergency: none (patient declines) Admission Exam Per Admitting Provider Constitutional: uncomfortable-appearing, no acute distress HEENT: NCAT, no conjunctival injection, no conjunctival pallor, no scleral icterus CV: regular rhythm, no murmur appreciated, extremities well-perfused, no LE edema Resp: CTABL, no wheezes/rales/rhonchi appreciated, no increased work of breathing GI: soft, nondistended, nontender, BS normoactive Skin: warm, dry, no rash appreciated Neuro: alert, oriented, no focal neurologic deficit appreciated Principal Diagnosis GI Bleed Discharge Exam General: WN/WD male sitting up in bed, NAD HEENT: head normocephalic, atraumatic, mmm, trachea midline without deviation, mmm Resp: CTAB, no w/c/r, 99% on RA CV: RRR, +murmur, no rub/gallop, calves nontender and pulses palpable bilaterally GI: +BS throughout, +tenderness to epigastric region, no guarding or rigidity or peritoneal signs : no diaz MSK/Neuro: moves all extremities, no focal deficits prior lumbar incision well healed RIGHT hip with ecchymosis, tenderness to palpation (decreased) strength intact and equal b/l LE against resistance pulses palpable bilaterally, NVI Skin: warm, dry, well perfused Discharge Data Allergies Allergy/AdvReac Type Severity Reaction Status Date / Time adhesive Allergy Unknown SKIN Verified 01/14/22 16:02 IRRITATION WITH BANDAIDS topiramate [From Topamax] AdvReac Intermediate kidney Verified 01/14/22 16:02 stones metoclopramide AdvReac Mild anxiety Verified 01/14/22 16:02 Consultations 01/10/22 22:59 ED Decision to Admit Stat 01/11/22 03:15 Consult Gastroenterology Routine 01/12/22 16:48 Consult Orthopedic Surgery Routine Procedures Performed Operation Date: 01/11/22 17:30 Actual Procedures p EGD Biopsy Cytology - Rell Gonsales Case, DO Ordered Studies Abdomen/Pelvis CT 01/10/22 20:10 CT SCAN OF THE ABDOMEN AND PELVIS WITH IV CONTRAST CLINICAL HISTORY: Nausea and vomiting. Melanotic stool. COMPARISON STUDY: Abdominal CT dated 03/23/2020. TECHNIQUE: Following the IV administration of 114 cc of Optiray 320, CT scan of the abdomen and pelvis is performed from the lung bases to the proximal femora. Images are reviewed in the axial, sagittal, and coronal planes. IV contrast was administered without complication. A dose lowering technique was utilized adhering to the principles of ALARA. CT DOSE: 2096.06 mGy.cm FINDINGS: Lung bases: The patient is status post midline sternotomy and mitral valve surgery. The heart is normal in size and without pericardial effusion. There are scattered coronary artery calcifications. The lung bases are clear. Liver: The contrast-enhanced liver is normal in size, contour, and attenuation. There is no intrahepatic biliary ductal dilatation. The hepatic veins and portal veins are patent. Gallbladder: Unremarkable. Spleen: Normal in size and attenuation. Pancreas: Unremarkable. Adrenal glands: Unremarkable. Kidneys: The contrast enhanced kidneys are normal in size and without hydronephrosis. The kidneys enhance symmetrically. Scattered subcentimeter cortical hypodensities likely represent cysts but are too small for definitive characterization. Abdominal vasculature: The abdominal aorta is normal in course and caliber noting mild atherosclerotic calcification. Bowel: There are scattered colonic diverticula without CT evidence of acute diverticulitis. No bowel obstruction is seen. The appendix is well-visualized and normal. Peritoneum: There is no intraperitoneal free air or abdominal ascites. There is a small fat-containing umbilical hernia. Lymphadenopathy: None. Pelvic viscera: The bladder, prostate, and seminal vesicles are normal as visualized. There are bilateral fat-containing inguinal hernias, left larger than right. Skeletal structures: There is postoperative change from L5-S1 spinal fusion. No lytic or blastic lesions are seen. IMPRESSION: No acute infectious or inflammatory findings are identified in the abdomen or pelvis. ACT 112: Negative or not required by law. Electronically signed by: Donte Desai M.D. 01/11/2022 8:31 AM Chest CTA 01/10/22 20:20 CT ANGIOGRAPHY OF THE CHEST, PULMONARY EMBOLUS PROTOCOL CLINICAL HISTORY: Shortness of breath. Evaluate for pulmonary embolus. COMPARISON STUDY: Chest CT April 21, 2016. Chest radiograph April 08, 2020. TECHNIQUE: Following IV administration of 114 mL of Optiray, helical axial images of the chest were obtained utilizing the pulmonary embolus protocol. Maximal intensity projections and sagittal and coronal reformats were viewed on an independent 3D workstation. IV contrast was administered without complication. Automated exposure control was utilized for the study. A dose lowering technique was utilized adhering to the principles of ALARA. FINDINGS: No pulmonary emboli are identified. Dilatation of the central pulmonary arteries is similar to CT of April 21, 2016. Prosthetic mitral valve is noted. There is mild cardiomegaly. Median sternotomy wires are noted. No thoracic aortic dissection. No thoracic lymphadenopathy. There is no consolidation to suggest pneumonia. No pneumothorax or pleural effusion is present. Mild groundglass opacities favor atelectasis. Abdomen and pelvis CT will be reported separately. IMPRESSION: 1. No pulmonary emboli identified. 2. No acute intrathoracic findings. 3. Stable dilatation of the central pulmonary arteries. This raises the possibility of pulmonary arterial hypertension. ACT 112: Negative or not required by law. Electronically signed by: Lucian Livingston M.D. 01/11/2022 8:[address] 01/11/22 09:56 CT lumbar spine w con HISTORY: Back pain. n/v, recent lumbar fusion, eval infection TECHNIQUE: Multiaxial CT images of the lumbar spine were performed following the intravenous administration of 93 cc of Optiray 320 and reformatted in the sagittal and coronal plane. COMPARISON STUDY: Abdomen and pelvis CT 01/10/2022. Lumbar spine CT 03/23/2020. FINDINGS: No fracture or subluxation within the lumbar spine. The sacrum appears intact. There is again noted L5-S1 posterior decompression fusion with pedicle screws and rods. The hardware appears intact. No abnormal periprosthetic lucency to suggest loosening or infection. The L5-S1 disc spacers in place. Remaining disc spaces are preserved. Paravertebral soft tissues are unremarkable. Suboptimal evaluation the central canal due to the CT technique. There appears to be moderate central canal narrowing at L4-5 due to a broad-based posterior disc bulge and ligamentum flavum and facet hypertrophy. There is also moderate bilateral neural foraminal narrowing at this level. No loculated fluid collections to suggest an abscess. Contrast within the bladder secondary to the recent abdomen and pelvis CT. No endplate destruction to suggest a discitis/osteomyelitis. IMPRESSION: 1. No fractures of fixation within the lumbar spine. 2. Prior L5-S1 posterior decompression and fusion with pedicle screws and rods. The hardware appears intact. 3. No abnormal periprosthetic lucency. 4. Moderate central canal and bilateral neural foraminal narrowing at L4-5 due to broad-based posterior disc bulge and ligamentum flavum and facet hypertrophy. 5. No endplate erosive changes to suggest a discitis/osteomyelitis. ACT 112: Negative or not required by law. Electronically signed by: Espinoza Busby M.D. 01/11/2022 12:[address] 01/12/22 12:48 CT OF THE RIGHT HIP WITHOUT CONTRAST CLINICAL HISTORY: Right hip pain, ecchymosis, no reported fall COMPARISON STUDY: CT of the abdomen and pelvis January 10, 2022. TECHNIQUE: Axial images of the right hip were obtained without IV contrast. Sagittal and coronal reconstructions were viewed. Automated exposure control was utilized for the study. A dose lowering technique was utilized adhering to the principles of ALARA FINDINGS: Alignment of the right hip is anatomic. There is no fracture. A few bone islands within the right femur are noted. No suspicious osseous lesions are present. There is no evidence for avascular necrosis of the right femoral head. Right hip joint space is preserved. There is minimal osteophytosis of the right hip. Adjacent soft tissues are unremarkable. Visualized portions of the right hemipelvis are unremarkable. IMPRESSION: 1. No acute fracture within the right hip. No acute process by CT. 2. Mild degenerative changes of the right hip. ACT 112: Negative or not required by law. Electronically signed by: Lucian Livingston M.D. 01/12/2022 2:48 PM ECHOCARDIOGRAM 01/13/22 Left ventricular systolic function is normal. No regional wall motion abnormalities noted. There is borderline concentric left ventricular hypertrophy. Ejection Fraction 60-65%. An annuloplasty ring is noted in the mitral position. No prior study for comparison. Lumbar Spine MRI 01/13/22 07:42 MR lumbar spine wo con CLINICAL HISTORY: 42 years-old Male with back pain. Chronic low back pain with history of prior spinal surgery. COMPARISON: CT lumbar spine 01/11/2022, MRI lumbar spine 03/11/2020. TECHNIQUE: Multiplanar, multi sequence MRI of the lumbar spine was performed without intravenous contrast. FINDINGS: The clerical administrator localizer images demonstrate no gross extracranial abnormality. There is a few degrees of lumbar levoscoliosis noted. Conus medullaris terminates at the L1 level. Imaged intra-abdominal and paraspinal structures are unremarkable. No acute fracture, subluxation or endplate erosion. No suspicious bone lesions. Status post L5-S1 laminectomy with posterior interbody korey and screw fusion and discectomy. T12-L1: No central canal or neural foraminal stenosis. L1-L2: No central canal or neural foraminal stenosis. L2-L3: No central canal or neural foraminal stenosis. L3-L4: No central canal or neural foraminal stenosis. L4-L5: Mild intervertebral disc space narrowing with disc desiccation, mild spondylitic spurring with moderate facet arthrosis and ligamentum flavum thickening. Right foraminal/far lateral annular fissure is similar to prior. Mildly decreased size of the associated right paracentral disc protrusion previously described at this level. AP dimension of the thecal sac measures 9 mm. Mild central canal stenosis with mild to moderate narrowing of the lateral recesses. Moderate right with mild left neural foraminal narrowing. L5-S1: Discectomy with posterior interbody korey and screw fusion and laminectomy. Spondylitic spurring flattens the ventral thecal sac. No significant central canal stenosis. Decreased T1 and T2 signal within the right neural foramen causes severe right foraminal narrowing. Mild left foraminal narrowing. IMPRESSION: 1. Prior laminectomy with posterior interbody korey and screw fusion and discectomy at L5-S1. There is severe right lateral recess narrowing which may be from granulation tissue versus less likely sequestered disc material. 2. Discogenic degeneration at L4-L5 redemonstrated resulting in mild central canal with moderate right and mild left neural foraminal narrowing. ACT 112: Negative or not required by law. The above report was generated using voice recognition software. It may contain grammatical, syntax or spelling errors. Dictated: 01/13/2022 1:53 PM Transcribed: 01/13/2022 3:24 PM Gretel [id number] [email or web address] Electronically signed by: Aaron Salgado M.D. 01/13/2022 3:48 PM Hospital Course (1) Hematemesis: 42yo male with a history of endocarditis (s/p valve replacement, 2016), HTN, lumbar disc disease (s/p fusion about two weeks ago), neurofibromatosis, migraine presents with a one-day history of nausea, vomiting, and dark-colored stool and hematemesis x 1 GI BLEED Patient with history of chronic back pain with hx lumbar fusion and recent shoulder surgery earlier this year, admits to taking NSAIDs 600mg at least once daily if not multiple times daily CTA negative for PE as reported pain with inspiration, likely from n/v prior CTAP with nondilated bowel loops, stomach distended with ingested fluid but nondilated GI consulted s/p EGD with Dr Brewster on 01/12 * Single 10mm mucosal nodule found at GEJ, biopsies taken --> f/u given underlying hx neurofibromatosis, ?underlying GI malignancy, however denied B symptoms * Two non-bleeding cratered gastric ulcers with no stigmata of bleeding found in gastric antrum. Largest lesion was 8mm in dimension. Bx'd Protonix IV BID transitioned to PO BID -- continued indefinitely at discharge Carafate QID x 8 weeks IVF, Pain control, antiemetics, bowel regimen ordered as needed. 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 WBC wnl on repeat, likely elevated 2nd to n/v/reactive from GI bleeding Repeat hgb improved and tolerating regular AHA diet and feeling ready for discharge Follow up with GI outpatient for biopsy results -- did educate patient can look on portal earlier for results Educated to AVOID NSAIDs , use tylenol 1gm Q8H at home for pain. Short rx for oxycodone and to follow up with Dr Melara outpatient for lumbar spine as below (2) Acute blood loss anemia: Presenting hemoglobin = 15.3. Discharge hemoglobin = 11.7. 2nd to upper GI bleeding - presumed from gastric ulcers. Hemoglobin was 11.5 about 24 hours prior to admission. Last two hemoglobin levels thus suggesting no ongoing bleeding. (3) Hypertension: Continued carvedilol 12.5mg BID, however review of medications without recent medications sent but patient states follows with Dr Kwan Got message to Dr Kwan and did continue BID dosing and sent rx at discharge. 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 prior use PO MMJ None reported while inpatient, tylenol available prn (6) Status post lumbar surgery: on admit reported ~ 2weeks ago --> actually was done in 2019, Dr Melara Reported lifting daughter prior to admission and hearing a "pop" with resulting back pain, ongoing issues CT lumbar spine with hardware intact but show moderate central canal and bilateral neural foraminal narrowing at L4-L5 due to broad-based posterior disc bulge Avoiding NSAIDs obviously given above, pain control ordered by switched to PO and limiting use but reports controlled currently No steroids given increased risk for bleeding/ulcers given admit with GIB short course oxycodone at d/c and instructed to use 1000mg tylenol Q8H in the meantime for pain control can also consider topical patches/lidocaine/TOPICAL voltaren OTC but avoid PO in setting of GI bleeding Consulted Dr Melara to weigh regarding CT --> ordered MRI which showed severe right lateral recess narrowing which may be from granulation tissue versus less likely sequestered disc material.Discogenic degeneration at L4-L5 redemonstrated resulting in mild central canal with moderate right and mild left neural foraminal narrowing. I did discuss with Dr Melara and there is some stenosis and lateral recess narrowing, but he felt nothing urgent inpatient and recommended patient call office next week for follow up and will likely eventually need surgery. Official consult cancelled Gabapentin continued while inpatient but none sent at d/c as patient reported old rx from prior surgery and will need to have follow up with PCP for ongoing treatment and close follow up while on these medications given possible misuse in the past and had been using leftover rx (7) Leukocytosis: likely reactive from n/v/GI bleed resolved on repeat and remained afebrile (8) Lumbar back pain with radiculopathy affecting right lower extremity: (9) Bulging of lumbar intervertebral disc: f/u Dr Melara outpatient (10) History of endocarditis: hx of such 2015, reported from infected PICC line. Per ID note, patient had been on bactrim PO for a reported bug bite to his antecubital fossa, no steroid use for prior tx migraines but got DHE injections s/p mitral annuloplasty Repeat ECHO obtained given pain w/ inspiration, hx endocarditis --> echo with normal LV systolic function, EF 60-65%. no regional wma,. annuloplasty ring noted in mitral position CTA negative for PE on admission F/u PCP outpatient Plan continued inpatient stay Total Time Total Time Spent Total Time Spent (In Minutes): 60 Discharge Plan Discharge Items Patient Disposition: Home - Self-Care Reason For Visit: HEMATEMESIS, SUSPECTED GI BLEED Discharge Diagnosis: GI bleed Goals: You have been hospitalized for an urgent problem which required surgery. During your stay at [facility], we have made an effort to correct the problem that brought you to the hospital while keeping you as comfortable as possible. Surgery and medications were used to bring your condition under control and your discharge instructions will include directions for any medications you should take after leaving the hospital. Please make sure to follow the advice of your surgeon regarding follow up with the surgeon and with your primary care provider. Activity: Resume your previous activity Non-emergency contact: Primary Care Provider, Surgeon and Street Flusher Driver Call non-emergency contact if: you have any medication questions, your symptoms worsen, your pain is concerning for you and you have a fever Follow-up/Referrals: Rell Brewster DO [Physician] - (2 weeks) Nelli Shane PA-C [Physician [place]] - 01/14/22 3:30 pm Dick Melara DO [Surgeon] - (1 week) Diet: Heart Healthy Add Attending Provider Instructions: You have been hospitalized for a GI bleed. You were treated with medications and GI was consulted and you underwent an EGD which showed nodules which were biopsied and gastric ulcers. You will need to continue protonix 40mg by mouth twice daily indefinitely and you have been started on Carafate four times daily before meals and bedtime to help re-coat the lining of the stomach. The Carafate should be continued for 8 weeks. You will need to have follow up regarding the biopsy results which should be available next week, and can call the office or check the portal for results, but GI is recommending follow up in the next 8 weeks. In the meantime, you should AVOID all NSAIDs including ibuprofen, naproxen, Aleve, Motrin as these are likely the cause and can worsen the situation. Your hemoglobin has improved on repeat. You also had imaging of your back that was reviewed by Dr Melara and he recommends you call the office to be seen in the next week to discuss options. Nothing acute, but he does feel you will likely need surgery in the upcoming year or two. You have also been sent a short prescription for pain control and should continue 1000mg of Tylenol every eight hours for baseline control. Please follow up with your PCP in the next 7-10 days or call the office sooner with any issues. Review of previous labs indicate it may be beneficial to work on management of your cholesterol levels to prevent complications in the future and can either have repeat labs after dietary changes, or I would recommend consideration to start medication if still elevated on repeat to help bring down these levels. It is also important to follow up with your primary care provider for continued medical management as it has been some time since you were last seen. I have sent prescription for the carvedilol for your blood pressure but you should continue follow up with Dr Kwan to see if continued elevations outpatient you may need to have this increased. I did repeat an ECHOCARDIOGRAM given your history of valve issues and replacement and it had been a while since you had this done and this shows your pumping function is normal but you do have some thickening of the ventricle which is likely from elevated blood pressures. Otherwise, there is no significant abnormality but you should have continued follow up/monitoring. Please return to the ER for any increased abdominal pain, inability to keep up with oral intake, for any recurrence of bleeding, or for any other symptoms concerning for you. It has been a pleasure being a part of the medical team providing for you while you have been in the hospital. Take care! Pending Studies at Discharge: No Stand-Alone Forms: My [facility], Opioid Pain Management Medications and DC Order Prescriptions: New pantoprazole 40 mg Tablet,Delayed Release (Dr/Ec) 40 mg PO BID Qty: 60 1RF sucralfate [Carafate] 1 gram tablet 1 g PO Q6H 56 Days Qty: 224 0RF Continued ondansetron HCl 8 mg tablet 8 mg PO Q6 PRN (Reason: Nausea) No Action oxycodone 5 mg tablet 5 mg PO Q6H PRN (Reason: pain) Qty: 10 0RF carvedilol 12.5 mg tablet 6.25 mg PO BID Qty: 60 0RF Discharge Orders: Discharge Order (Routine); Ordered 01/13/22 Ordered By: Joana Rios Admission Data Admit Date/Time: 01/12/22 16:45 Attending Provider: Walter Estes Admit Provider: Burke Martin Primary Care Provider: Randy Kwan Other Providers: Leonides Moeller ; eRll Brewster Other Interventions: Discharge Summary Assessment (RN) Last Done: 01/13/22 17:30 Supervising Physician Co-Signing Physician Notes Attending Attestation and Discharge note: Pt seen/examined, chart reviewed, discharge care plan d/w ROBERT Rios. I agree w/ the moncada components of her discharge documentation. 42yo male with h/o NF, endocarditis, chronic headaches - presented with hematemesis. EGD by Dr Rell Brewster showed 2 gastric ulcers. No varices. Nodule seen at GE junction - s/p biopsy. Treated with IV PPI - transitioned to PO PPI at discharge. Discharge hemoglobin 11.7. Other issues per Ms Gabriel. Discharge exam - gen - NAD mouth - MMM heart - RRR, s1 s2 lungs - CTA b/l abd - soft NT ND BS+ ext - no edema, pulses 2+ b/l He should f/u with [facility] post-discharge. Walter Estes MD Coding Level of Care Code D/C DAY MANAGEMENT >30 MINS Diagnoses Hematemesis K92.0 Nausea presence: with nausea Acute blood loss anemia D62 Hypertension I10 Hypertension type: essential hypertension Neurofibromatosis Q85.00 Migraine G43.909 Status post lumbar surgery Z98.890 Leukocytosis D72.829 Lumbar back pain with radiculopathy affecting right lower extremity M54.16 Bulging of lumbar intervertebral disc M51.26 History of endocarditis Z86.79
--- NOTE | 2022-01-13 15:50 | Magnetic Resonance Report ---
MR lumbar spine wo con CLINICAL HISTORY: 42 years-old Male with back pain. Chronic low back pain with history of prior spin al surgery. COMPARISON: CT lumbar spine 01/11/2022, MRI lumbar spine 03/11/2020. TECHNIQUE: Multiplanar, multi sequence MRI of the lumbar spine was performed without intravenous cont rast. FINDINGS: The grain merchandising manager localizer images demonstrate no gross extracranial abnormality. There is a few de grees of lumbar levoscoliosis noted. Conus medullaris terminates at the L1 level. Imaged intra-abdomi nal and paraspinal structures are unremarkable. No acute fracture, subluxation or endplate erosion. N o suspicious bone lesions. Status post L5-S1 laminectomy with posterior interbody korey and screw fusio n and discectomy. T12-L1: No central canal or neural foraminal stenosis. L1-L2: No central canal or neural foraminal stenosis. L2-L3: No central canal or neural foraminal stenosis. L3-L4: No central canal or neural foraminal stenosis. L4-L5: Mild intervertebral disc space narrowing with disc desiccation, mild spondylitic spurring wit h moderate facet arthrosis and ligamentum flavum thickening. Right foraminal/far lateral annular fiss ure is similar to prior. Mildly decreased size of the associated right paracentral disc protrusion pr eviously described at this level. AP dimension of the thecal sac measures 9 [address] Mild central canal st enosis with mild to moderate narrowing of the lateral recesses. Moderate right with mild left neural foraminal narrowing. L5-S1: Discectomy with posterior interbody korey and screw fusion and laminectomy. Spondylitic spurri ng flattens the ventral thecal sac. No significant central canal stenosis. Decreased T1 and T2 signal within the right neural foramen causes severe right foraminal narrowing. Mild left foraminal narrowi ng. IMPRESSION: 1. Prior laminectomy with posterior interbody korey and screw fusion and discectomy at L5-S1. There is severe right lateral recess narrowing which may be from granulation tissue versus less likely sequest ered disc material. 2. 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 ACT 112: Negative or not required by law. The above report was generated using voice recognition software. It may contain grammatical, syntax o r spelling errors. Dictated: 01/13/2022 1:53 PM Transcribed: 01/13/2022 3:24 PM Gretel [id number] [email or web address] Electronically signed by: Aaron Salgado M.D. 01/13/2022 3:48 PM
== END 2022-01-13 18:13 | disposition home or self-care (01) | DRG 378 ==
LOC: 4W 19:24 → ED 19:24 → SUATTDRO 01-11 00:47 → 4W 01-11 04:35
DX: N40.0 Benign prostatic hyperplasia without lower urinary tract symptoms; I10 Essential (primary) hypertension; K92.0 Hematemesis; Z86.16 Personal history of COVID-19; K22.89 Other specified disease of esophagus; K92.2 Gastrointestinal hemorrhage, unspecified; Q85.00 Neurofibromatosis, unspecified; D62 Acute posthemorrhagic anemia; K31.89 Other diseases of stomach and duodenum; G43.909 Migraine, unspecified, not intractable, without status migrainosus; T39.395A Adverse effect of other nonsteroidal anti-inflammatory drugs [NSAID], initial encounter; Z88.8 Allergy status to other drugs, medicaments and biological substances; Z98.1 Arthrodesis status; K92.1 Melena; Z83.3 Family history of diabetes mellitus; M54.16 Radiculopathy, lumbar region; K25.9 Gastric ulcer, unspecified as acute or chronic, without hemorrhage or perforation; Y92.019 Unspecified place in single-family (private) house as the place of occurrence of the external cause; Z95.2 Presence of prosthetic heart valve